=== PATIENT | male | born 1955 | race American Indian/Alaskan Native ===

== ENCOUNTER 2018-07-09 15:46 | Inpatient (IN) | payer MEDICARE ==
--- NOTE | 2018-07-09 16:38 | ED PDOC ---
Arrival/HPI - General Chief Complaint: Lower Extremity Problem/Injury Time Seen by Provider: 07/09/18 15:50 Historian: Patient, Alf - History of Present Illness Narrative History of Present Illness (Text): 07/09/18 16:37 A 63 year old male, whose past medical history includes ESRD on dialysis, diabetes, hyperthyroidism, and left BKA, presents to the emergency department sent by [facility] for amputation of gangrene on the right third toe. Patient denies any fever, chills, shortness of breath, chest pain, diarrhea, nausea, vomiting, urinary symptoms, back pain, neck pain, headache, dizziness, or any other complaints. PMD: Dr. Crystal Time/Duration: Other (earlier today) Symptom Onset: Gradual Activities at Onset: Light Context: Other ([facility]) Past Medical History - Provider Review Nursing Documentation Reviewed: Yes - Infectious Disease Hx of Infectious Diseases: None - Cardiac Hx Cardiac Disorders: Yes Hx Hypertension: Yes - Pulmonary Hx Respiratory Disorders: No - Neurological Hx Neurological Disorder: Yes Hx Seizures: Yes - HEENT Hx HEENT Disorder: Yes Other/Comment: DYSPHAGIA - Renal Hx Renal Disorder: Yes - Endocrine/Metabolic Hx Endocrine Disorders: Yes Hx Diabetes Mellitus Type 1: Yes - Integumentary Hx Dermatological Disorder: Yes Other/Comment: GANGRENE - Musculoskeletal/Rheumatological Hx Musculoskeletal Disorders: Yes Other/Comment: PVD - Psychiatric Hx Substance Use: No - Surgical History Other/Comment: right big toe amputee,left 2nd and 3rd partial amputee - Anesthesia Hx Anesthesia: Yes Hx Anesthesia Reactions: No Family/Social History - Physician Review Nursing Documentation Reviewed: Yes Family/Social History: Unknown Family HX Smoking Status: Never Smoked Hx Alcohol Use: No Hx Substance Use: No Allergies/Home Meds Allergies/Adverse Reactions: Allergies No Known Allergies Allergy (Verified 07/09/18 15:52) Home Medications: Home Meds Medication Instructions Recorded Confirmed Acetaminophen [Tylenol] 650 mg PO Q4 PRN 07/09/18 07/09/18 Aspirin [Aspirin Chewable] 81 mg PO DAILY 07/09/18 07/09/18 Atorvastatin [Lipitor] 80 mg PO DAILY 07/09/18 07/09/18 B Complex W-C No.20/Folic Acid 1 cap PO DAILY 07/09/18 07/09/18 [Nephrocaps Softgel] Clopidogrel [Plavix] 75 mg PO DAILY 07/09/18 07/09/18 Ergocalciferol [Drisdol 50,000 1 cap PO FRI 07/09/18 07/09/18 Intl Units Cap] Famotidine [Pepcid] 20 mg PO DAILY 07/09/18 07/09/18 Insulin Aspart, Recombinant See Protocol 07/09/18 [Novolog] Losartan [Cozaar] 100 mg PO DAILY 07/09/18 07/09/18 Metoprolol Tartrate 25 mg PO DAILY 07/09/18 07/09/18 Ondansetron HCl [Zofran] 4 mg PO Q8 PRN 07/09/18 07/09/18 Sevelamer Carbonate [Renvela] 800 mg PO DAILY 07/09/18 07/09/18 amLODIPine [Norvasc] 10 mg PO DAILY 07/09/18 07/09/18 levETIRAcetam [Keppra] 1,000 mg PO BID 07/09/18 07/09/18 Review of Systems - Physician Review All systems were reviewed & negative as marked: Yes - Review of Systems Constitutional: absent: Fevers, Night Sweats Respiratory: absent: SOB Cardiovascular: absent: Chest Pain Gastrointestinal: absent: Diarrhea, Nausea, Vomiting Genitourinary Male: absent: Urinary Output Changes Musculoskeletal: absent: Back Pain, Neck Pain Skin: Other (+gangrene on right third toe) Neurological: absent: Headache, Dizziness Physical Exam Vital Signs Reviewed: Yes Vital Signs Temp Pulse Resp BP Pulse Ox 07/09/18 16:05 98.1 F 70 18 126/65 100 Temperature: Afebrile Blood Pressure: Normal Pulse: Regular Respiratory Rate: Normal Appearance: Positive for: Well-Appearing, Non-Toxic, Comfortable Pain Distress: None Mental Status: No: Alert and Oriented X 3 (Alert and Oriented x2 - Person and Place) - Systems Exam Head: Present: Atraumatic, Normocephalic Pupils: Present: PERRL Extroacular Muscles: Present: Other (+legally blind) Conjunctiva: Present: Normal Mouth: Present: Moist Mucous Membranes Neck: Present: Normal Range of Motion Respiratory/Chest: Present: Clear to Auscultation, Good Air Exchange. No: Respiratory Distress, Accessory Muscle Use Cardiovascular: Present: Regular Rate and Rhythm, Normal S1, S2. No: Murmurs Abdomen: No: Tenderness, Distention, Peritoneal Signs Back: Present: Normal Inspection Upper Extremity: Present: Other (+bilateral upper and lower contractions, +left av fistula with palpable thrill) Lower Extremity: Present: Other (+left BKA, +right heel ulcer, +gangrene on 2nd and 3rd toe of right foot, +1st and 4th toe amputated on right foot). No: Edema, CALF TENDERNESS, Cyanosis, Normal ROM, Tab's Sign, Tenderness, Swelling, Erythema, Deformity, Temperature Abnormalties, Neurovascularly Intact, Capillary Refill < 2 s Neurological: Present: GCS=15, CN II-XII Intact, Speech Normal Skin: Present: Warm, Dry, Normal Color. No: Rashes Psychiatric: Present: Alert, Oriented x 3, Normal Insight, Normal Concentration Medical Decision Making ED Course and Treatment: 07/09/18 16:45 Impression: A 63 year old male presenting to the emergency department for amputation of gangrene right third toe. Plan: --Type and screen -- VBG -- EKG -- Labs -- CBC -- COAGs -- Chest X-ray -- Blood culture -- Urine Culture -- Xray of right foot -- Urinalysis -- Reassess and disposition Prior Visits: Notes and results from previous visits were reviewed. Progress Notes: 07/09/18 16:37 EKG: Ordered, reviewed, and independently interpreted the EKG. Rate : 68 BPM Rhythm : NSR Interpretation : No ST-segment elevations or depressions, post LVH 07/09/18 17:[address] Crystal, podiatry attending, who advised to give patient tazocin, arterial doplar, and consult Dr. Jacobs, vascular. Patient will be admitted to Dr. Hernández. 07/09/18 17:05 Case also discussed with podiatry resident, January. 07/09/18 17:35 Procedure: Chest X-ray Impression: No active disease. Dictator: Antonio Corado Procedure: Right Foot Xray Impression: Postoperative changes. No objective radiographic evidence of acute osteomyelitis. Dictator: Antonio Corado MD 07/09/18 17:[address] Wolfe who is covering for Dr. Hernández and will admit patient to his care. - Scribe Statement The provider has reviewed the documentation as recorded by the Lexy Fabian All medical record entries made by the Lexy were at my direction and personally dictated by me. I have reviewed the chart and agree that the record accurately reflects my personal performance of the history, physical exam, medical decision making, and the department course for this patient. I have also personally directed, reviewed, and agree with the discharge instructions and disposition. Disposition/Present on Arrival - Present on Arrival Any Indicators Present on Arrival: Yes History of DVT/PE: No History of Uncontrolled Diabetes: Yes Urinary Catheter: No History of Decub. Ulcer: No History Surgical Site Infection Following: None - Disposition Have Diagnosis and Disposition been Completed?: Yes Diagnosis: Toe gangrene Disposition: HOME/ ROUTINE Disposition Time: 18:11 Patient Plan: Admission Condition: GUARDED Forms: [email or web address] (Maltese)
[2018-07-09 17:01] LABS: VENOUS BLOOD GAS PO2 48 mm/Hg (30-55); VENOUS BLOOD PH 7.34 (7.32-7.43)
[2018-07-09] MEDS ORDERED: Vancomycin 1gm in NS 250ml 1 GM/250 ML BAG IVPB STA (17:05)
[2018-07-09] MEDS ORDERED: Piperacill/Tazo 4.5gm in NS 4.5 GM/100 ML BAG IVPB STA (17:07)
[2018-07-09 17:16] LABS: BASO # 0.06 K/mm3 (0.0-2.0); BASO % 0.7 % (0.0-3.0); EOS # 0.3 (0.0-0.7); EOS % 3.7 % (1.5-5.0); GRAN # 5.96 (1.4-6.5); GRAN % 65.5 % (50.0-68.0); HEMOGLOBIN 11.4 g/dL (14.0-18.0); LYMPH # 1.8 (1.2-3.4); LYMPH % 19.4 % (22.0-35.0); MEAN CELL VOLUME 96.6 fl (80.0-105.0); MEAN CORPUSCULAR HGB CONC 31.1 g/dl (31.0-37.0); MONO % 10.7 % (1.0-6.0); RBC 3.8 10^6/uL (3.5-6.1); RED CELL DISTRIBUTION WIDTH 14.8 % (11.5-14.5); WHITE BLOOD COUNT 9.1 10^3/ul (4.5-11.0)
[2018-07-09 17:17] LABS: PROTHROMBIN TIME 11.4 SECONDS (9.4-12.5)
[2018-07-09 17:20] LABS: ALB/GLOB RATIO 0.8 (1.1-1.8); ALBUMIN 3.6 g/dL (3.0-4.8); CALCIUM 8.8 mg/dL (8.4-10.5)
--- NOTE | 2018-07-09 17:25 | RAD ---
Date of service: 07/09/2018 HISTORY: Sepsis Patient COMPARISON: No prior. FINDINGS: LUNGS: No active pulmonary disease. PLEURA: No significant pleural effusion identified, no pneumothorax apparent. CARDIOVASCULAR: No radiographic findings to suggest acute or significant cardiovascular disease. Incidental finding(s): Incompletely visualized left upper extremity vascular stent. OSSEOUS STRUCTURES: No significant abnormalities. VISUALIZED UPPER ABDOMEN: Normal. OTHER FINDINGS: None. IMPRESSION: No active disease.
--- NOTE | 2018-07-09 17:26 | RAD ---
Date of service: 07/09/2018 PROCEDURE: Right Foot Radiographs. HISTORY: foot toe gangreen COMPARISON: None. FINDINGS: BONES: Surgical resection of 1st digit and distal 1st metatarsal. Resection of 4th digit. JOINTS: Normal. SOFT TISSUES: Normal. OTHER FINDINGS: None. IMPRESSION: Postoperative changes. No objective radiographic evidence of acute osteomyelitis.
--- NOTE | 2018-07-09 23:30 | CARD ---
APPROVED REPORT Date of service: 07/09/2018 EKG Measurement Heart [id number] <Conclusion> Normal sinus rhythm Moderate voltage criteria for LVH, may be normal variant Borderline ECG
--- NOTE | 2018-07-10 14:26 | CP.PCM.CON ---
History of Present Illness - History of Present Illness History of Present Illness: Consult for Nephrology HPI: 63 yo M w/ pmh of ESRD, HTN, dm, blind that presented for gangrene of L foot. He is unable to give much history - he is fatigued. He has been following w/ podiatry in [place] who thinks he needs amputation. He denies fever/chills/n/v. He endorses reduced po intake. ros: a full detailed ros is negative except as in my hpi pmh: ESRD TTS,HTN,DM, Anemia, Secondary hyperpara, PAD and as below surg hx: includes R BKA famhx: no esrd in family sochx: [place] no active smoke etoh or ivdu all: nkda meds: as below pe: vs as below seen on HD gen : nad sclera: anicteric op: poor dentition neck: supple cv: +s1+s2 no rub lungs cta abd: soft nt/nd / no organomegaly ext: dressing on L foot r bka neuro: follows commands no asterixis psych: flat skin dressing on foot ulceration labs and imaging rviewd imp: ESRD/HTN/Diabetic kidney/Diabetic foot ulcer/ Anemia of renal disease/ Secondary hyperpara/ plan: hd today, tts dm per primary resume home bp meds foot ulcer per primary team dose abx for esrd hold phos binders for now no need for HILTON currently Past Patient History - Infectious Disease Hx of Infectious Diseases: None - Past Social History Smoking Status: Former Smoker - CARDIAC Hx Cardiac Disorders: Yes (CAD) Hx Hypertension: Yes Hx Peripheral Vascular Disease: Yes (s/p angioplasty of right leg 07/2017) Other/Comment: hyperlipidemia; peripheral neuropathy - PULMONARY Hx Respiratory Disorders: No - NEUROLOGICAL Hx Dementia: Yes Hx Seizures: Yes Other/Comment: Toxic metabolic encephalopathy - HEENT Hx HEENT Problems: Yes Other/Comment: DYSPHAGIA - RENAL Hx Chronic Kidney Disease: Yes Hx Dialysis: Yes ([facility]ThS at [facility]) Date of Last Dialysis Treatment: 07/08/18 Hx Renal Failure: Yes - ENDOCRINE/METABOLIC Hx Diabetes Mellitus Type 2: Yes Hx Hyperthyroidism: Yes - INTEGUMENTARY Hx Dermatological Problems: Yes Other/Comment: GANGRENE - MUSCULOSKELETAL/RHEUMATOLOGICAL Hx Falls: Yes - GASTROINTESTINAL Hx Gastrointestinal Disorders: Yes Other/Comment: Gastritis, GI bleeding 2/2; Esophagitis; Roxana Amaya tear; - GENITOURINARY/GYNECOLOGICAL Hx Incontinence: Yes - PSYCHIATRIC Hx Substance Use: No - SURGICAL HISTORY Hx Surgeries: Yes Hx Amputation: Yes (left BKA 03/2017; mulitple b/l toes) Other/Comment: AVG thrombectomy with placement of AV fistula; right remoral antiopathy - ANESTHESIA Hx Anesthesia: Yes Hx Anesthesia Reactions: No Meds Allergies/Adverse Reactions: Allergies Allergy/AdvReac Type Severity Reaction Status Date / Time No Known Allergies Allergy Verified 07/09/18 15:52 - Medications Medications: Current Medications Amlodipine Besylate (Norvasc) 10 mg PO DAILY [facility] Atorvastatin Calcium (Lipitor) 80 mg PO DIN [facility] Insulin Human Regular (Humulin R Low) 0 units SC ACHS [facility]; Protocol Levetiracetam (Keppra) 1,000 mg PO BID [facility] Metoprolol Succinate (Toprol Xl) 25 mg PO BRK [facility] Results - Vital Signs Recent Vital Signs: Last Vital Signs Temp 98.6 F 07/10/18 08:19 Pulse 68 07/10/18 08:19 Resp 18 07/10/18 08:19 BP 143/82 07/10/18 08:19 Pulse Ox 100 07/10/18 08:19 - Labs Result Diagrams: 07/09/18 16:40 07/09/18 16:40 Labs: Laboratory Results - last 24 hr 07/09/18 07/09/18 07/09/18 16:40 16:40 16:40 WBC 9.1 RBC 3.80 Hgb 11.4 L Hct 36.7 L MCV 96.6 MCH 30.0 MCHC 31.1 RDW 14.8 H Plt Count 337 MPV 10.0 Gran % 65.5 Lymph % (Auto) 19.4 L [place] % (Auto) 10.7 H Eos % (Auto) 3.7 Baso % (Auto) 0.7 Gran # 5.96 Lymph # (Auto) 1.8 [place] # (Auto) 1.0 H Eos # (Auto) 0.3 Baso # (Auto) 0.06 PT 11.4 INR 1.00 APTT 28.0 pO2 VBG pH VBG pCO2 VBG HCO3 VBG Total CO2 VBG O2 Sat (Calc) VBG Base Excess VBG Potassium Glucose Lactate FiO2 Sodium 138 Potassium 4.8 Chloride 98 Carbon Dioxide 32 Anion Gap 13 BUN 31 H Creatinine 5.7 H Est GFR ( Amer) 12 Est GFR (Non-Af Amer) 10 POC Glucose (mg/dL) Random Glucose 161 H Calcium 8.8 Phosphorus 2.6 Magnesium 2.4 H Total Bilirubin 0.5 AST 28 ALT 19 Alkaline Phosphatase 100 Total Protein 7.9 Albumin 3.6 Globulin 4.3 Albumin/Globulin Ratio 0.8 L Venous Blood Potassium Blood Type Blood Type Confirm Antibody Screen BBK History Checked 07/09/18 07/09/18 07/09/18 16:57 17:15 18:00 WBC RBC Hgb Hct MCV MCH MCHC RDW Plt Count MPV Gran % Lymph % (Auto) [place] % (Auto) Eos % (Auto) Baso % (Auto) Gran # Lymph # (Auto) [place] # (Auto) Eos # (Auto) Baso # (Auto) PT INR APTT pO2 48 VBG pH 7.34 VBG pCO2 65.0 H VBG HCO3 35.1 H VBG Total CO2 37.1 H VBG O2 Sat (Calc) 84.4 H VBG Base Excess 7.0 H VBG Potassium 4.6 Glucose 159 H Lactate 1.6 FiO2 21.0 Sodium 136.0 Potassium Chloride 102.0 Carbon Dioxide Anion Gap BUN Creatinine Est GFR ( Amer) Est GFR (Non-Af Amer) POC Glucose (mg/dL) Random Glucose Calcium Phosphorus Magnesium Total Bilirubin AST ALT Alkaline Phosphatase Total Protein Albumin Globulin Albumin/Globulin Ratio Venous Blood Potassium 4.6 Blood Type B POSITIVE Blood Type Confirm B POSITIVE Antibody Screen Negative BBK History Checked No verified bt 07/10/18 07/10/18 00:20 06:31 WBC RBC Hgb Hct MCV MCH MCHC RDW Plt Count MPV Gran % Lymph % (Auto) [place] % (Auto) Eos % (Auto) Baso % (Auto) Gran # Lymph # (Auto) [place] # (Auto) Eos # (Auto) Baso # (Auto) PT INR APTT pO2 VBG pH VBG pCO2 VBG HCO3 VBG Total CO2 VBG O2 Sat (Calc) VBG Base Excess VBG Potassium Glucose Lactate FiO2 Sodium Potassium Chloride Carbon Dioxide Anion Gap BUN Creatinine Est GFR ( Amer) Est GFR (Non-Af Amer) POC Glucose (mg/dL) 122 H 100 Random Glucose Calcium Phosphorus Magnesium Total Bilirubin AST ALT Alkaline Phosphatase Total Protein Albumin Globulin Albumin/Globulin Ratio Venous Blood Potassium Blood Type Blood Type Confirm Antibody Screen BBK History Checked
--- NOTE | 2018-07-10 14:26 | CP.PCM.PN ---
Subjective - Date & Time of Evaluation Date of Evaluation: 07/10/18 Time of Evaluation: 14:26 - Subjective Subjective: DIALYSIS NOTE seen on HD uf goal initially 2 reduced to 1.2 due to hypotension 2k bath Objective - Vital Signs/Intake and Output Vital Signs (last 24 hours): Temp Pulse Resp BP Pulse Ox 98.6 F 68 18 143/82 100 07/10/18 08:19 07/10/18 08:19 07/10/18 08:19 07/10/18 08:19 07/10/18 08:19 - Medications Medications: Current Medications Amlodipine Besylate (Norvasc) 10 mg PO DAILY [facility] Atorvastatin Calcium (Lipitor) 80 mg PO DIN [facility] Insulin Human Regular (Humulin R Low) 0 units SC ACHS [facility]; Protocol Levetiracetam (Keppra) 1,000 mg PO BID [facility] Metoprolol Succinate (Toprol Xl) 25 mg PO BRK [facility] - Labs Labs: 07/09/18 16:40 07/09/18 16:40 PT 11.4 SECONDS (9.4-12.5) 07/09/18 16:40 INR 1.00 07/09/18 16:40 APTT 28.0 Seconds (25.1-36.5) 07/09/18 16:40
[2018-07-10] MEDS: Metoprolol Succinate 25 mg XL Tab PO SCH (15:54)
--- NOTE | 2018-07-10 16:52 | CP.PCM.CON ---
History of Present Illness - History of Present Illness History of Present Illness: Infectious Disease Consultation: July 10, 2018 63 yo AA male with PMHx of ESRD on HD, HTN, DM, CAD, dyslipidemia, anemia, hypothyroidism, seizure history, and blindness presenting with gangrene of the Left foot. Seen by Podiatry in [facility] who felt amputation was needed (I believe Dr. Blakely was the employee relations consultant following). Dr. Gan for renal and Dr. Holm for neurology. The patient himself gives very little information and often appears distant. I have seen the patient in [facility] in the past. I do know that the patient was being transitioned to long term care pharmacist care at [facility]. PMHx: ESRD on HD, HTN, DM, CAD, dyslipidemia, anemia, hypothyroidism, seizure history, secondary hyperparathyroidism, and blindness PSHx: Right BKA Dialysis access. Allergies: NKDA Social Hx: No current tobacco, EtOH, or illicit drug use. Currently in [facility] at [facility] being transitioned to [facility] Active Medications Amlodipine Besylate (Norvasc) 10 mg PO DAILY [facility] Last Admin: 07/10/18 15:53 Dose: 10 mg Atorvastatin Calcium (Lipitor) 80 mg PO DIN [facility] Last Admin: 07/10/18 16:28 Dose: 80 mg Insulin Human Regular (Humulin R Low) 0 units SC [facility]; Protocol Levetiracetam (Keppra) 1,000 mg PO BID [facility] Metoprolol Succinate (Toprol Xl) 25 mg PO BRK [facility] Last Admin: 07/10/18 15:54 Dose: 25 mg Family Hx: Unable to obtain from the patient ROS: Unable to obtain from the patient Past Patient History - Infectious Disease Hx of Infectious Diseases: None - Past Social History Smoking Status: Former Smoker - CARDIAC Hx Cardiac Disorders: Yes (CAD) Hx Hypertension: Yes Hx Peripheral Vascular Disease: Yes (s/p angioplasty of right leg 07/2017) Other/Comment: hyperlipidemia; peripheral neuropathy - PULMONARY Hx Respiratory Disorders: No - NEUROLOGICAL Hx Dementia: Yes Hx Seizures: Yes Other/Comment: Toxic metabolic encephalopathy - HEENT Hx HEENT Problems: Yes Other/Comment: DYSPHAGIA - RENAL Hx Chronic Kidney Disease: Yes Hx Dialysis: Yes (TThS at [facility]) Date of Last Dialysis Treatment: 07/08/18 Hx Renal Failure: Yes - ENDOCRINE/METABOLIC Hx Diabetes Mellitus Type 2: Yes Hx Hyperthyroidism: Yes - INTEGUMENTARY Hx Dermatological Problems: Yes Other/Comment: GANGRENE - MUSCULOSKELETAL/RHEUMATOLOGICAL Hx Falls: Yes - GASTROINTESTINAL Hx Gastrointestinal Disorders: Yes Other/Comment: Gastritis, GI bleeding 2/2; Esophagitis; Roxana Amaya tear; - GENITOURINARY/GYNECOLOGICAL Hx Incontinence: Yes - PSYCHIATRIC Hx Substance Use: No - SURGICAL HISTORY Hx Surgeries: Yes Hx Amputation: Yes (left BKA 03/2017; mulitple b/l toes) Other/Comment: AVG thrombectomy with placement of AV fistula; right remoral antiopathy - ANESTHESIA Hx Anesthesia: Yes Hx Anesthesia Reactions: No Meds Allergies/Adverse Reactions: Allergies Allergy/AdvReac Type Severity Reaction Status Date / Time No Known Allergies Allergy Verified 07/09/18 15:52 - Medications Medications: Current Medications Amlodipine Besylate (Norvasc) 10 mg PO DAILY [facility] Last Admin: 07/10/18 15:53 Dose: 10 mg Atorvastatin Calcium (Lipitor) 80 mg PO DIN [facility] Last Admin: 07/10/18 16:28 Dose: 80 mg Insulin Human Regular (Humulin R Low) 0 units SC [facility]; Protocol Levetiracetam (Keppra) 1,000 mg PO BID [facility] Metoprolol Succinate (Toprol Xl) 25 mg PO BRK [facility] Last Admin: 07/10/18 15:54 Dose: 25 mg Physical Exam - Constitutional Appears: Non-toxic, No Acute Distress, Chronically Ill - Head Exam Head Exam: ATRAUMATIC, NORMOCEPHALIC Additional comments: poor dentition - Eye Exam Eye Exam: absent: Scleral icterus Additional comments: legally blind - ENT Exam ENT Exam: Mucous Membranes Moist, Normal External Ear Exam, TM's Normal Bilaterally - Neck Exam Neck exam: Positive for: Full Rom, Normal Inspection - Respiratory Exam Respiratory Exam: Clear to Auscultation Bilateral, NORMAL BREATHING PATTERN. absent: Rales, Rhonchi, Wheezes - Cardiovascular Exam Cardiovascular Exam: REGULAR RHYTHM, RRR, +S1, +S2 - GI/Abdominal Exam GI & Abdominal Exam: Normal Bowel Sounds, Soft. absent: Distended, Tenderness - Extremities Exam Additional comments: Right BKA. Left foot with gangrene... wrapped now - Neurological Exam Neurological exam: Alert Additional comments: follows commands, generally week. - Psychiatric Exam Psychiatric exam: Flat Affect Additional comments: distant - Skin Additional comments: gangrene left foot. Results - Vital Signs Recent Vital Signs: Last Vital Signs Temp 98.6 F 07/10/18 08:19 Pulse 86 07/10/18 15:54 Resp 18 07/10/18 08:19 BP 136/85 07/10/18 15:54 Pulse Ox 100 07/10/18 08:19 - Labs Result Diagrams: 07/09/18 16:40 07/09/18 16:40 Labs: Laboratory Results - last 24 hr 07/09/18 07/09/18 07/09/18 16:40 16:40 16:40 WBC 9.1 RBC 3.80 Hgb 11.4 L Hct 36.7 L MCV 96.6 MCH 30.0 MCHC 31.1 RDW 14.8 H Plt Count 337 MPV 10.0 Gran % 65.5 Lymph % (Auto) 19.4 L [place] % (Auto) 10.7 H Eos % (Auto) 3.7 Baso % (Auto) 0.7 Gran # 5.96 Lymph # (Auto) 1.8 [place] # (Auto) 1.0 H Eos # (Auto) 0.3 Baso # (Auto) 0.06 PT 11.4 INR 1.00 APTT 28.0 pO2 VBG pH VBG pCO2 VBG HCO3 VBG Total CO2 VBG O2 Sat (Calc) VBG Base Excess VBG Potassium Glucose Lactate FiO2 Sodium 138 Potassium 4.8 Chloride 98 Carbon Dioxide 32 Anion Gap 13 BUN 31 H Creatinine 5.7 H Est GFR ( Amer) 12 Est GFR (Non-Af Amer) 10 POC Glucose (mg/dL) Random Glucose 161 H Calcium 8.8 Phosphorus 2.6 Magnesium 2.4 H Total Bilirubin 0.5 AST 28 ALT 19 Alkaline Phosphatase 100 Total Protein 7.9 Albumin 3.6 Globulin 4.3 Albumin/Globulin Ratio 0.8 L Venous Blood Potassium Blood Type Blood Type Confirm Antibody Screen BBK History Checked 07/09/18 07/09/18 07/09/18 16:57 17:15 18:00 WBC RBC Hgb Hct MCV MCH MCHC RDW Plt Count MPV Gran % Lymph % (Auto) [place] % (Auto) Eos % (Auto) Baso % (Auto) Gran # Lymph # (Auto) [place] # (Auto) Eos # (Auto) Baso # (Auto) PT INR APTT pO2 48 VBG pH 7.34 VBG pCO2 65.0 H VBG HCO3 35.1 H VBG Total CO2 37.1 H VBG O2 Sat (Calc) 84.4 H VBG Base Excess 7.0 H VBG Potassium 4.6 Glucose 159 H Lactate 1.6 FiO2 21.0 Sodium 136.0 Potassium Chloride 102.0 Carbon Dioxide Anion Gap BUN Creatinine Est GFR ( Amer) Est GFR (Non-Af Amer) POC Glucose (mg/dL) Random Glucose Calcium Phosphorus Magnesium Total Bilirubin AST ALT Alkaline Phosphatase Total Protein Albumin Globulin Albumin/Globulin Ratio Venous Blood Potassium 4.6 Blood Type B POSITIVE Blood Type Confirm B POSITIVE Antibody Screen Negative BBK History Checked No verified bt 07/10/18 07/10/18 00:20 06:31 WBC RBC Hgb Hct MCV MCH MCHC RDW Plt Count MPV Gran % Lymph % (Auto) [place] % (Auto) Eos % (Auto) Baso % (Auto) Gran # Lymph # (Auto) [place] # (Auto) Eos # (Auto) Baso # (Auto) PT INR APTT pO2 VBG pH VBG pCO2 VBG HCO3 VBG Total CO2 VBG O2 Sat (Calc) VBG Base Excess VBG Potassium Glucose Lactate FiO2 Sodium Potassium Chloride Carbon Dioxide Anion Gap BUN Creatinine Est GFR ( Amer) Est GFR (Non-Af Amer) POC Glucose (mg/dL) 122 H 100 Random Glucose Calcium Phosphorus Magnesium Total Bilirubin AST ALT Alkaline Phosphatase Total Protein Albumin Globulin Albumin/Globulin Ratio Venous Blood Potassium Blood Type Blood Type Confirm Antibody Screen BBK History Checked Assessment & Plan - Assessment and Plan (Free Text) Assessment: 63 yo AA male with multiple medical issues presenting with gangrene of the left foot. I believe that is why he was sent to [facility]. No notes at this time at [facility] on why the patient was transferred. Patient is a very poor historian. Start patient on Cefepime and Vancomycin renally dosed for now. Arrington cultures. Await surgical plan by podiatry. WBC on 06/26/2018 was 10.2. Supportive care. PMHx includes but not limited to ESRD on HD, HTN, DM, CAD, dyslipidemia, anemia, hypothyroidism, seizure history, PVD, hypothyroidism, secondary hyperparathyroidism, seizure history, and blindness Thank you for allowing me to participate in the care of the patient, we will follow with you.
--- NOTE | 2018-07-10 18:07 | CON ---
DATE: 07/10/2018 HISTORY OF PRESENT ILLNESS: A 63-year-old diabetic male seen at bedside for consultation, evaluation, and management of a gangrenous right third digit. The patient was seen by myself at [facility] yesterday and he was being treated for a right third toe ulceration which has now become gangrenous. There was noted to be some purulence emanating from the wound and he was sent for admission to avoid sepsis. PAST MEDICAL HISTORY: The patient's medical history is significant for longstanding insulin-dependent diabetes with peripheral neuropathy and peripheral arterial disease; end-stage renal disease, on hemodialysis 3 days a week; hyperthyroidism; left below-knee amputation; CAD; essential hypertension; dysphasia; seizure disorder. ALLERGIES: THE PATIENT HAS NO KNOWN DRUG ALLERGIES. MEDICATIONS: Include Keppra, Norvasc, Renvela, Zofran, metoprolol, Cozaar, NovoLog, Pepcid, Drisdol, Plavix, Lipitor, aspirin, and Tylenol. SOCIAL HISTORY: The patient is very poor historian, but states that he never smoked, never drank alcohol, never used illicit drugs. FAMILY HISTORY: Unknown. LABORATORY FINDINGS: Reveal white count of 9.1, hemoglobin of 11.4, hematocrit of 36.7, and platelet count of 337. No microbiology report noted. X-rays taken of the right foot revealed no radiographic evidence of cortical destruction to suggest acute osteomyelitis at the gangrenous ulceration. We are awaiting arterial Doppler results to determine lower extremity perfusion. OBJECTIVE: There is noted to be a below-knee amputation on the left side. Right lower extremity presents with nonpalpable pedal pulses 3.40 right lower extremity presents with thin, shiny discolored skin secondary to longstanding diabetes with peripheral arterial disease. There is noted to be an amputation of the right hallux as well as the partial amputation of the right fourth digit. The patient is unable to detect 5.07 g monofilament wire testing bilaterally. There are no pedal pulses palpable and there is no palpable popliteal pulse noted as well. Right third digit presents with a gangrenous ulceration at the distal half of the digit. There is exposed head of the proximal phalangeal bone. There is noted to be a small amount of purulence emanating from the wound. The area is void of any cellulitic activity and there appears to be no signs of ascending cellulitis. However, underlying abscess formation cannot be ruled out. ASSESSMENT: Gangrenous right third digit secondary to longstanding insulin-dependent diabetes with severe peripheral arterial disease. PLAN: The patient was seen and examined. Wound was cleansed and culture was taken and submitted for sensitivities. The application of Betadine solution and a dry sterile dressing was applied. Recommend Infectious Disease consult with Dr. Valdez Schofield to evaluate culture and sensitivity results and prescribe accordingly. Recommend immediate Vascular consultation with Dr. Sergey Jacobs to evaluate arterial Doppler's and ascertain lower extremity perfusion. We will await Vascular input before any surgical intervention is attempted. Must be determined if the patient's amputation site will heal with surgery as opposed to allowing amputation to occur. We will continue with IV antibiotics empirically and await Infectious Disease input. Loco Blakely DPM
[2018-07-10] MEDS: Insulin Reg-LOW-Coverage SC SCH ×2 (18:13→22:36)
[2018-07-10] MEDS: Cefepime 1gm in NS 100ml 1 GM/100 ML BAG IVPB SCH (19:05)
--- NOTE | 2018-07-10 19:26 | HP ---
This is Dr. Wolfe covering for Dr. Fatmata Wilkins. HISTORY OF PRESENT ILLNESS: The patient is a 63-year-old male transferred from [facility] at [facility], referred by game master, Dr. Blakely for gangrene of the right third toe. PAST MEDICAL HISTORY: Includes end-stage renal disease, on dialysis; type 2 diabetes mellitus; hyperthyroidism; peripheral vascular disease. The patient also has a history of hypertension. PAST SURGICAL HISTORY: Includes status post left below-knee amputation and amputation of the right first toe. ALLERGIES: THE PATIENT HAS NO KNOWN ALLERGIES. CURRENT MEDICATIONS: Include Renvela 800 mg daily, Plavix 75 mg daily, Pepcid 20 mg daily, metoprolol 25 mg daily, Keppra 1000 mg twice daily, Cozaar 100 mg daily, Lipitor 80 mg daily, vitamin D, Drisdol 50,000 units weekly, ASA 81 mg daily, and Norvasc 10 mg daily. SOCIAL HISTORY: The patient denies any history of tobacco or alcohol use. He is currently a resident at [facility]. He is dependent with ADLs and IADLs. REVIEW OF SYSTEMS: The patient denies any chest pain or shortness of breath. No nausea, no vomiting, no diarrhea. No complaints of pain in the lower extremities. No jaundice. PHYSICAL EXAMINATION: GENERAL: The patient is a well-developed, cachectic male, in no acute distress. VITAL SIGNS: Blood pressure 143/82, pulse 102, temperature 98.6, respiratory rate 18. HEENT: Head is normocephalic, atraumatic. Pupils are equal, round, and reactive to light. Extraocular movements intact. NECK: Supple. No thyromegaly. No carotid bruit. LUNGS: Show few scattered crepitations bilaterally. HEART: Regular rate and rhythm. Grade 2/6 systolic murmur. ABDOMEN: Soft. EXTREMITIES: The left arm AV fistula is present with good bruit. The patient is status post left bilateral above-knee amputation. The right third toe is slightly cyanotic with abrasion of the dorsal surface. The patient is status post amputation of the right first toe. NEUROLOGIC: The patient is awake and oriented without focal sensory or motor deficits. SKIN: Warm and dry. LABORATORY DATA: WBC is 9.1, hemoglobin 11.4, and hematocrit 36.7. Sodium 138, potassium 4.8, chloride 98, CO2 of 32. BUN 31, creatinine 5.7. Glucose 161. Chest x-ray shows no active disease. X-ray of the right foot shows no evidence of osteomyelitis. IMPRESSION: 1. Peripheral vascular disease, dry gangrene of the right third toe, status post left below-knee amputation and amputation of right first toe. 2. End-stage renal disease, on hemodialysis. 3. Type 2 diabetes mellitus. PLAN: The patient will be seen in consultation by Dr. Reddy sánchez amputation. The patient will continue hemodialysis. The patient has received dosage of Zosyn and vancomycin in the emergency department. Dr. Wiklins will continue care of the patient in the a.m. MADISON Martin MD
[2018-07-10] MEDS: Ciprofloxacin 0.3% OPTH SOLN OU SCH (22:37)
[2018-07-11] MEDS: Insulin Reg-LOW-Coverage SC SCH ×4 (08:30→22:27)
[2018-07-11] MEDS: Metoprolol Succinate 25 mg XL Tab PO SCH (09:00)
[2018-07-11] MEDS: Ciprofloxacin 0.3% OPTH SOLN OU SCH ×3 (11:00→17:57)
--- NOTE | 2018-07-11 12:45 | CP.PCM.PN ---
Subjective - Date & Time of Evaluation Date of Evaluation: 07/11/18 Time of Evaluation: 12:40 - Subjective Subjective: Podiatry - Drs. Frost/Reddy 63M PMHx ESRD on HD, HTN, DM, CAD, dyslipidemia, anemia, hypothyroidism, seizure history, PVD, hypothyroidism, secondary hyperparathyroidism, seizure history, and blindness seen and evaluated at bedside concerning right 3rd digit gangrene. Patient asleep on rounds, flat affect, able to answer yes/no to questions. No acute events overnight per nursing. Patient denies any pain to right foot. Dressing to right foot clean/dry/intact. Denies n/v/f/d/c/sob/nunes/cp. Objective - Vital Signs/Intake and Output Vital Signs (last 24 hours): Temp Pulse Resp BP Pulse Ox 98.3 F 71 18 153/92 H 99 07/11/18 08:39 07/11/18 09:00 07/11/18 08:39 07/11/18 09:40 07/11/18 08:39 - Medications Medications: Current Medications Amlodipine Besylate (Norvasc) 10 mg PO DAILY [facility] Last Admin: 07/11/18 09:40 Dose: 10 mg Atorvastatin Calcium (Lipitor) 80 mg PO DIN [facility] Last Admin: 07/10/18 16:28 Dose: 80 mg Ciprofloxacin (Ciloxan 0.3% [facility] Soln) 1 drop OU TID [facility] Last Admin: 07/10/18 22:37 Dose: 1 drop Cefepime HCl (Maxipime 1gm) 1 gm in 100 mls @ 100 mls/hr IVPB Q24H [facility]; Protoc ol Last Admin: 07/10/18 19:05 Dose: 100 mls/hr Insulin Human Regular (Humulin R Low) 0 units SC ACHS [facility]; Protocol Last Admin: 07/11/18 08:30 Dose: Not Given Levetiracetam (Keppra) 1,000 mg PO BID [facility] Last Admin: 07/11/18 09:38 Dose: 1,000 mg Metoprolol Succinate (Toprol Xl) 25 mg PO BRK [facility] Last Admin: 07/11/18 09:00 Dose: 25 mg - Labs Labs: 07/09/18 16:40 07/09/18 16:40 PT 11.4 SECONDS (9.4-12.5) 07/09/18 16:40 INR 1.00 07/09/18 16:40 APTT 28.0 Seconds (25.1-36.5) 07/09/18 16:40 - Constitutional Appears: No Acute Distress - Extremities Exam Additional comments: LLE = BKA RLE focused physical exam: VASC: DP and PT pulses nonpalpable. Popliteal pulse nonpalpable. CFT delayed to digits. Temperature gradient cool to cool. Nonpitting edema noted to base of 3rd digit. NEURO: Protective sensation diminisehd. DERM: Thin, friable skin present. Dry gangrene noted to distal half of 3rd digit and full thickness ulceration around PIPJ with exposed head of proximal phalanx. 1cc of purulence able to be expressed from wound. ORTHO: Hallux and partial 4th digit amputations. - Psychiatric Exam Psychiatric exam: Flat Affect Assessment and Plan - Assessment and Plan (Free Text) Assessment: 63M with right 3rd digit gangrene 2/2 PVD Plan: Patient seen and evaluated Discussed with attending, Dr. Santosh GLORIA Right foot XR (07/09): Postoperative changes. No objective radiographic evidence of acute osteomyelitis RLE MRI (07/10): pending Right foot wound culture (07/10): pending ID recs appreciated - Cefepime and Vancomycin, renally dosed f/u Vascular consult Continue local wound care: betadine, DSD Podiatry will continue to follow
--- NOTE | 2018-07-11 13:51 | MRI ---
Date of service: 07/10/2018 PROCEDURE: MRI of the right foot without contrast HISTORY: right 3rd digit gangrene COMPARISON: Plain film dated 07/09/2018 TECHNIQUE: MRI of the right foot was performed in multiple planes using multiple pulse sequences. FINDINGS: There is bony destruction and marrow edema in the 3rd toe including the proximal middle and distal phalanges. Findings are consistent with osteomyelitis. This area was obscured on the previous plain film due to overlapping of the toes. There is no metatarsal edema. IMPRESSION: Bony destruction and marrow edema in the 3rd toe consistent with acute osteomyelitis
--- NOTE | 2018-07-11 17:14 | CP.PCM.PN ---
Subjective - Date & Time of Evaluation Date of Evaluation: 07/11/18 Time of Evaluation: 16:00 - Subjective Subjective: Infectious Disease Follow Up: July 11, 2018 63 yo AA male with PMHx of ESRD on HD, HTN, DM, CAD, dyslipidemia, anemia, hypothyroidism, seizure history, and blindness presenting with gangrene of the Left foot. Seen by Podiatry in [facility] who felt amputation was needed (I believe Dr. Blakely was the cargo and container inspector following). Dr. Gan for renal and Dr. Holm for neurology. The patient himself gives very little information and often appears distant. I have seen the patient in [facility] in the past. I do know that the patient was being transitioned to [facility] care at [facility]. Awaiting vascular evaluation and podiatry final recommendations regarding surgical options if any on the foot. MRI showing acute osteomyelitis of the 3rd toe of the left foot. Objective - Vital Signs/Intake and Output Vital Signs (last 24 hours): Temp Pulse Resp BP Pulse Ox 98.6 F 69 14 112/66 98 07/11/18 14:00 07/11/18 14:00 07/11/18 14:00 07/11/18 14:00 07/11/18 14:00 - Medications Medications: Current Medications Amlodipine Besylate (Norvasc) 10 mg PO DAILY [facility] Last Admin: 07/11/18 09:40 Dose: 10 mg Atorvastatin Calcium (Lipitor) 80 mg PO DIN [facility] Last Admin: 07/10/18 16:28 Dose: 80 mg Ciprofloxacin (Ciloxan 0.3% [facility] Soln) 1 drop OU TID [facility] Last Admin: 07/11/18 14:27 Dose: 1 drop Cefepime HCl (Maxipime 1gm) 1 gm in 100 mls @ 100 mls/hr IVPB Q24H [facility]; Protocol Last Admin: 07/10/18 19:05 Dose: 100 mls/hr Insulin Human Regular (Humulin R Low) 0 units SC ACHS [facility]; Protocol Last Admin: 07/11/18 12:30 Dose: Not Given Levetiracetam (Keppra) 1,000 mg PO BID [facility] Last Admin: 07/11/18 09:38 Dose: 1,000 mg Metoprolol Succinate (Toprol Xl) 25 mg PO BRK [facility] Last Admin: 07/11/18 09:00 Dose: 25 mg - Labs Labs: 07/09/18 16:40 07/09/18 16:40 PT 11.4 SECONDS (9.4-12.5) 07/09/18 16:40 INR 1.00 07/09/18 16:40 APTT 28.0 Seconds (25.1-36.5) 07/09/18 16:40 - Constitutional Appears: Non-toxic, No Acute Distress, Chronically Ill - Head Exam Head Exam: ATRAUMATIC, NORMOCEPHALIC Additional comments: poor dentition - Eye Exam Eye Exam: absent: Scleral icterus Additional comments: legally blind, gooey material in right eye but not pus. No apparent conjunctivitis. - ENT Exam ENT Exam: Mucous Membranes Moist, Normal External Ear Exam, TM's Normal Bilaterally - Neck Exam Neck Exam: Full ROM, Normal Inspection - Respiratory Exam Respiratory Exam: Clear to Ausculation Bilateral, NORMAL BREATHING PATTERN. absent: Rales, Rhonchi, Wheezes - Cardiovascular Exam Cardiovascular Exam: REGULAR RHYTHM, RRR, +S1, +S2 - GI/Abdominal Exam GI & Abdominal Exam: Soft, Normal Bowel Sounds. absent: Distended, Tenderness - Extremities Exam Additional comments: Right BKA. Left foot with gangrene... wrapped now - Neurological Exam Neurological Exam: Alert, Awake Additional comments: AAO x 2, generally weak, extremities contracted, follows commands and answers questions appropriately. - Psychiatric Exam Psychiatric exam: Normal Affect, Normal Mood - Skin Additional comments: DP and PT pulses nonpalpable. Popliteal pulse nonpalpable. CFT delayed to digits. Temperature gradient cool to cool. Nonpitting edema noted to base of 3rd digit. Presence of dry gangrene to the third digit of the left foot and full thickness ulceration at PIPJ. Podiatry able to express purulence at that time. Hallux and partial 4th digit amputation. Assessment and Plan - Assessment and Plan (Free Text) Assessment: 63 yo AA male with multiple medical issues presenting with gangrene of the left foot specifically the third digit. I believe that is why he was sent to [facility] [facility]. No notes at this time at [facility] on why the patient was transferred. Patient is a very poor historian. Start patient on Cefepime and Vancomycin renally dosed for now. Arrington cultures. Await surgical plan by podiatry after vascular evaluation. WBC on 06/26/2018 was 10.2. Supportive care. Mentally the patient is at his baseline status. This has been his baseline for many years now. PMHx includes but not limited to ESRD on HD, HTN, DM, CAD, dyslipidemia, anemia, hypothyroidism, seizure history, PVD, hypothyroidism, secondary hyperparathyroidism, seizure history, and blindness Thank you for allowing me to participate in the care of the patient, we will follow with you.
[2018-07-11] MEDS: Cefepime 1gm in NS 100ml 1 GM/100 ML BAG IVPB SCH (17:55)
--- NOTE | 2018-07-11 20:17 | US ---
PROCEDURE: Lower extremity BEAU exam HISTORY: Peripheral vascular disease with ischemic pain. Previous left BKA. PHYSICIAN(S): Sergey Jacobs MD. FINDINGS: The exam is limited by calcified vessels. The brachial systolic pressures are symmetric. The PVR waveforms are normal on the right to the ankles. The right metatarsal waveforms are moderately blunted. This could represent vaso constriction or possibly pedal occlusive disease IMPRESSION: 1. Normal right PVR waveforms to the level of the ankle. 2. Previous left BKA.
--- NOTE | 2018-07-12 01:35 | PN ---
DATE: 07/11/2018 SUBJECTIVE: The patient is 63-year-old male. The patient was seen and examined at the bedside on 07/11/2018. The patient is very poor historian, bilaterally blind, looks like not in distress. No fever, no chills. No headache, no dizziness. PHYSICAL EXAMINATION: VITAL SIGNS: Temperature 98.6, pulse 59, respiratory rate 14, blood pressure 112/66, pulse oximetry 98. HEENT: Head normocephalic, atraumatic. Eyes closed. Nose patent. Mucous membrane moist. NECK: Supple. No carotid bruit. No JVD or thyromegaly. CHEST: Bilaterally symmetrical. HEART: S1, S2 positive. LUNGS: Clear to auscultation. ABDOMEN: Soft, bowel sounds present. No organomegaly. LOWER EXTREMITIES: No edema. No cyanosis. Lower extremities, left foot has a dressing and right leg amputation below knee. NEUROLOGICAL: The patient is awake, alert, but not very good historian. MEDICATIONS: Norvasc, Lipitor, ciprofloxacin, cefepime, insulin, Keppra, metoprolol. LABORATORY DATA: White blood cell is 9.1, hemoglobin 11.4, hematocrit 36.7, platelet 337. Sodium 138, potassium 4.8, BUN 31, creatinine 5.7, glucose 161. ASSESSMENT AND PLAN: Mr. Theodore Pedersen is 63-year-old male with anemia, renal insufficiency, hyperglycemia, has multiple medical issues, gangrene of left foot, specifically the third toe osteomyelitis. According to Podiatry, Dr. Blakely, the patient need amputation. The patient was getting rehab in [facility]. The patient is getting cefepime and vancomycin renal doses, pancultures are done, awaiting for surgical opinion. Vascular is working on that also. Dr. Valdez Schofield knows this patient from [facility]. According to him, this patient's mental status level is for many years. The patient has endstage renal disease on hemodialysis, hypertension, diabetes mellitus, coronary artery disease, dyslipidemia, anemia, hypothyroidism, seizure disorder, peripheral vascular disease, secondary hyperparathyroidism and bilaterally blind, getting antibiotics. Gastrointestinal and deep venous thrombosis prophylaxes. Lower extremity MRI done reviewed by me. Extremity ultrasound is done, foot x-ray done. Dr. Gan is the chocolate finisher on the case. We will follow up. Fatmata Wilkins MD [facility] # [id number]
[2018-07-12] MEDS: Insulin Reg-LOW-Coverage SC SCH ×2 (06:36→22:41)
[2018-07-12 06:45] LABS: HEMOGLOBIN 12.2 g/dL (14.0-18.0); MEAN CELL VOLUME 93.8 fl (80.0-105.0); MEAN PLATELET VOLUME 10.2 fl (7.0-11.0); RBC 4.06 10^6/uL (3.5-6.1); RED CELL DISTRIBUTION WIDTH 14.9 % (11.5-14.5); WHITE BLOOD COUNT 7.6 10^3/ul (4.5-11.0)
[2018-07-12 07:24] LABS: CALCIUM 8.9 mg/dL (8.4-10.5)
[2018-07-12 07:44] LABS: IRON 56 ug/dL (45-180)
[2018-07-12 07:53] LABS: % IRON SATURATION 28 % (20-55); TOTAL IRON BINDING CAPACITY 198 ug/dL (261-462)
[2018-07-12 08:32] LABS: HEPATITIS B SURFACE AG Negative (NEGATIVE)
[2018-07-12 08:37] LABS: HEPATITIS B CORE AB NEGATIVE (NEGATIVE)
[2018-07-12] MEDS: Ciprofloxacin 0.3% OPTH SOLN OU SCH ×3 (10:52→17:33)
[2018-07-12] MEDS: Metoprolol Succinate 25 mg XL Tab PO SCH (10:52)
--- NOTE | 2018-07-12 14:40 | CP.PCM.PN ---
Subjective - Date & Time of Evaluation Date of Evaluation: 07/12/18 Time of Evaluation: 14:38 - Subjective Subjective: Consult for Nephrology HPI: 63 yo M w/ pmh of ESRD, HTN, dm, blind that presented for gangrene of L foot. He is unable to give much history - he is fatigued. He has been following w/ podiatry in [place] who thinks he needs amputation. He denies fever/chills/n/v. He endorses reduced po intake. ros: a full detailed ros is negative except as in my hpi pt denies CP/SOB. his ROS is limited. pt usually not very communicative pmh: ESRD TTS,HTN,DM, Anemia, Secondary hyperpara, PAD and as below surg hx: includes R BKA famhx: no esrd in family sochx: lives [place] no active smoke etoh or ivdu all: nkda meds: as below pe: vs as below gen : nad sclera: anicteric op: poor dentition neck: supple cv: +s1+s2 no rub lungs cta abd: soft nt/nd / no organomegaly ext: dressing on L foot r bka neuro: follows commands no asterixis psych: flat affect. lack insight skin dressing on foot ulceration labs and imaging rviewd imp: ESRD on HD TTS schedule HTN/Diabetic kidney/Diabetic foot ulcer/ Anemia of renal disease/ Secondary hyperpara/acute osteomyelitis/left BKA plan: hd tomorrow as per tts schedule. nephrovite 1 tab/day dm per primary resume home bp meds. BP controlled foot ulcer/osteo management as per primary team/podiatry/ID dose abx for esrd hold phos binders for now as last phos low at 2.6 no need for HILTON currently as Hb 12.2 thanks for consult Please call if any Qs Dr Alfred Resendez [phone] Objective - Vital Signs/Intake and Output Vital Signs (last 24 hours): Temp Pulse Resp BP Pulse Ox 98.3 F 62 21 125/74 100 07/12/18 08:08 07/12/18 10:52 07/12/18 08:08 07/12/18 10:53 07/12/18 08:08 Intake and Output: 07/12/18 07/12/18 06:59 18:59 Intake Total 500 Balance 500 - Medications Medications: Current Medications Amlodipine Besylate (Norvasc) 10 mg PO DAILY [facility] Last Admin: 07/12/18 10:53 Dose: 10 mg Atorvastatin Calcium (Lipitor) 80 mg PO DIN [facility] Last Admin: 07/11/18 17:52 Dose: 80 mg Ciprofloxacin (Ciloxan 0.3% [facility] Soln) 1 drop OU TID [facility] Last Admin: 07/12/18 10:52 Dose: 1 drop Cefepime HCl (Maxipime 1gm) 1 gm in 100 mls @ 100 mls/hr IVPB Q24H [facility]; Protocol Last Admin: 07/11/18 17:55 Dose: 100 mls/hr Insulin Human Regular (Humulin R Low) 0 units SC ACHS [facility]; Protocol Last Admin: 07/12/18 06:36 Dose: Not Given Levetiracetam (Keppra) 1,000 mg PO BID [facility] Last Admin: 07/12/18 10:53 Dose: 1,000 mg Metoprolol Succinate (Toprol Xl) 25 mg PO BRK [facility] Last Admin: 07/12/18 10:52 Dose: 25 mg Vitamin B Complex/Vit C/Folic Acid (Nephro-Yocasta) 1 tab PO 0800 [facility] - Labs Labs: 07/12/18 06:20 07/12/18 06:20 PT 11.4 SECONDS (9.4-12.5) 07/09/18 16:40 INR 1.00 07/09/18 16:40 APTT 28.0 Seconds (25.1-36.5) 07/09/18 16:40
--- NOTE | 2018-07-12 15:01 | CP.PCM.PN ---
Subjective - Date & Time of Evaluation Date of Evaluation: 07/12/18 Time of Evaluation: 14:58 - Subjective Subjective: Podiatry Progress Note for Dr. Blakely: 63 yo male patient, seen and evaluated at bedside with Dr. Frost for 3rd digit gangrene. Patient sleeping bedside, answers yes/no to questions. Denies any pain to right foot. Patient denies N/V/F/SOB. Unable to obtain full history. Objective - Vital Signs/Intake and Output Vital Signs (last 24 hours): Temp Pulse Resp BP Pulse Ox 98.3 F 62 21 125/74 100 07/12/18 08:08 07/12/18 10:52 07/12/18 08:08 07/12/18 10:53 07/12/18 08:08 Intake and Output: 07/12/18 07/12/18 06:59 18:59 Intake Total 500 Balance 500 - Medications Medications: Current Medications Amlodipine Besylate (Norvasc) 10 mg PO DAILY [facility] Last Admin: 07/12/18 10:53 Dose: 10 mg Atorvastatin Calcium (Lipitor) 80 mg PO DIN [facility] Last Admin: 07/11/18 17:52 Dose: 80 mg Ciprofloxacin (Ciloxan 0.3% Oph Soln) 1 drop OU TID [facility] Last Admin: 07/12/18 10:52 Dose: 1 drop Cefepime HCl (Maxipime 1gm) 1 gm in 100 mls @ 100 mls/hr IVPB Q24H [facility]; Protocol Last Admin: 07/11/18 17:55 Dose: 100 mls/hr Insulin Human Regular (Humulin R Low) 0 units SC ACHS [facility]; Protocol Last Admin: 07/12/18 06:36 Dose: Not Given Levetiracetam (Keppra) 1,000 mg PO BID [facility] Last Admin: 07/12/18 10:53 Dose: 1,000 mg Metoprolol Succinate (Toprol Xl) 25 mg PO BRK [facility] Last Admin: 07/12/18 10:52 Dose: 25 mg Vitamin B Complex/Vit C/Folic Acid (Nephro-Yocasta) 1 tab PO 0800 [facility] - Labs Labs: 07/12/18 06:20 07/12/18 06:20 PT 11.4 SECONDS (9.4-12.5) 07/09/18 16:40 INR 1.00 07/09/18 16:40 APTT 28.0 Seconds (25.1-36.5) 07/09/18 16:40 - Constitutional Appears: Well, Non-toxic, No Acute Distress - Head Exam Head Exam: ATRAUMATIC, NORMOCEPHALIC - Extremities Exam Additional comments: RLE focused physical exam, Left BKA appreciated: Vasc: DP and PT pulses nonpalpable, CFT delayed to remaining digits, Temperature gradient cool to cool. +2 edema noted to 3rd digit. Neuro: Gross and protective sensation diminished Derm: Thin, friable skin present. Dry gangrene noted to distal half of 3rd digit and full thickness ulceration around PIPJ with exposed head of proximal phalanx. No drainage, no purulence appreciated, no cellulitis, mild erythema present to 3rd digit. Elongated, dystrophic 2nd and 5th digit nails Ortho: Hallux and partial 4th digit amputations. - Psychiatric Exam Psychiatric exam: Normal Affect Assessment and Plan - Assessment and Plan (Free Text) Assessment: 63yo male patient seen and evaluated for right 3rd digit dry gangrene secondary to PVD Plan: Patient seen and evaluated at bedside with Dr. Santosh GLORIA, absent leukocytosis Right foot XR (07/09): Postoperative changes. No objective radiographic evidence of acute osteomyelitis RLE MRI (07/10): bony destruction and marrow edema in the 3rd toe consistent with acute OM Right foot wound culture (07/10): staph aureus Continue with Cefepime and Vancomycin per ID reccs Continue local wound care: betadine, DSD Elongated, dystrophic nails debrided with large nail nipper to patient tolerance without incident f/u Vascular consult Plan for 3rd digit amputation Thursday at 9:[address] Blakely, please optimize patient for surgery Podiatry will continue to follow while in house
--- NOTE | 2018-07-12 16:04 | CP.PCM.PN ---
Subjective - Date & Time of Evaluation Date of Evaluation: 07/12/18 Time of Evaluation: 15:00 - Subjective Subjective: Infectious Disease Follow Up: July 12, 2018 63 yo AA male with PMHx of ESRD on HD, HTN, DM, CAD, dyslipidemia, anemia, hypothyroidism, seizure history, and blindness presenting with gangrene of the Left foot. Seen by Podiatry in [facility] at [facility] who felt amputation was needed (I believe Dr. Blakely was the reservations sales agent following). Dr. Gan for renal and Dr. Holm for neurology. The patient himself gives very little information and often appears distant. I have seen the patient in [facility] in the past. I do know that the patient was being transitioned to fpc care at [facility]. Awaiting vascular evaluation and podiatry final recommendations regarding surgical options if any on the foot. MRI showing acute osteomyelitis of the 3rd toe of the left foot. Dr. Blakely planning for 3rd digit amputation of the left foot. Objective - Vital Signs/Intake and Output Vital Signs (last 24 hours): Temp Pulse Resp BP Pulse Ox 98.3 F 62 21 125/74 100 07/12/18 08:08 07/12/18 10:52 07/12/18 08:08 07/12/18 10:53 07/12/18 08:08 Intake and Output: 07/12/18 07/12/18 06:59 18:59 Intake Total 500 Balance 500 - Medications Medications: Current Medications Amlodipine Besylate (Norvasc) 10 mg PO DAILY [facility] Last Admin: 07/12/18 10:53 Dose: 10 mg Atorvastatin Calcium (Lipitor) 80 mg PO DIN [facility] Last Admin: 07/11/18 17:52 Dose: 80 mg Ciprofl[facility] 1 drop OU TID [facility] Last Admin: 07/12/18 10:52 Dose: 1 drop Cefepime HCl (Maxipime 1gm) 1 gm in 100 mls @ 100 mls/hr IVPB Q24H [facility]; Protocol Last Admin: 07/11/18 17:55 Dose: 100 mls/hr Insulin Human Regular (Humulin R Low) 0 units SC ACHS [facility]; Protocol Last Admin: 07/12/18 06:36 Dose: Not Given Levetiracetam (Keppra) 1,000 mg PO BID [facility] Last Admin: 07/12/18 10:53 Dose: 1,000 mg Metoprolol Succinate (Toprol Xl) 25 mg PO BRK [facility] Last Admin: 07/12/18 10:52 Dose: 25 mg Vitamin B Complex/Vit C/Folic Acid (Nephro-Yocasta) 1 tab PO 0800 [facility] - Labs Labs: 07/12/18 06:20 07/12/18 06:20 PT 11.4 SECONDS (9.4-12.5) 07/09/18 16:40 INR 1.00 07/09/18 16:40 APTT 28.0 Seconds (25.1-36.5) 07/09/18 16:40 - Constitutional Appears: Non-toxic, No Acute Distress, Chronically Ill - Head Exam Head Exam: ATRAUMATIC, NORMOCEPHALIC Additional comments: poor dentition - Eye Exam Eye Exam: Scleral icterus Additional comments: legally blind, had gooey material in right eye but not pus on initial admission. No apparent conjunctivitis. - ENT Exam ENT Exam: Mucous Membranes Moist, Normal External Ear Exam, TM's Normal Bilaterally - Neck Exam Neck Exam: Full ROM, Normal Inspection - Respiratory Exam Respiratory Exam: Clear to Ausculation Bilateral, NORMAL BREATHING PATTERN. absent: Rales, Rhonchi, Wheezes - Cardiovascular Exam Cardiovascular Exam: REGULAR RHYTHM, RRR, +S1, +S2 - GI/Abdominal Exam GI & Abdominal Exam: Soft, Normal Bowel Sounds. absent: Distended, Tenderness - Extremities Exam Additional comments: Right BKA. Left foot with gangrene... wrapped now - Neurological Exam Neurological Exam: Alert, Awake Additional comments: AAO x 2, generally weak, extremities contracted, follows commands and answers questions appropriately - Psychiatric Exam Psychiatric exam: Normal Affect, Normal Mood - Skin Additional comments: DP and PT pulses nonpalpable. Popliteal pulse nonpalpable. CFT delayed to digits. Temperature gradient cool to cool. Nonpitting edema noted to base of 3rd digit. Presence of dry gangrene to the third digit of the left foot and full thickness ulceration at PIPJ. Podiatry able to express purulence at that time. Hallux and partial 4th digit amputation. Assessment and Plan - Assessment and Plan (Free Text) Assessment: 63 yo AA male with multiple medical issues presenting with gangrene of the left foot specifically the third digit. I believe that is why he was sent to [facility]. No notes at this time at [facility] at [facility] on why the patient was transferred. Patient is a very poor historian. Start patient on Cefepime and Vancomycin renally dosed for now. Arrington cultures. Await surgical plan by podiatry after vascular evaluation. WBC on 06/26/2018 was 10.2. Supportive care. Mentally the patient is at his baseline status. This has been his baseline for many years now. PMHx includes but not limited to ESRD on HD, HTN, DM, CAD, dyslipidemia, anemia, hypothyroidism, seizure history, PVD, hypothyroidism, secondary hyperparathyroidism, seizure history, and blindness Scheduled for 3rd digit amputation on 07/14/[address] Blakely. Thank you for allowing me to participate in the care of the patient, we will follow with you.
[2018-07-12 16:57] LABS: FOLATE 5.5 ng/mL
[2018-07-12] MEDS: Cefepime 1gm in NS 100ml 1 GM/100 ML BAG IVPB SCH (17:32)
[2018-07-13] MEDS: Insulin Reg-LOW-Coverage SC SCH ×4 (06:59→22:25)
--- NOTE | 2018-07-13 07:43 | PN ---
DATE: 07/12/2018 SUBJECTIVE: Patient is 63-year-old male. Patient was seen and examined at the bedside on 07/12/2018. Looking comfortable. No nausea, vomiting, or diarrhea. Patient is a very poor historian. Denies any pain in the foot. Denies any nausea, vomiting, or shortness of breath. Unable to obtain full review of systems. PHYSICAL EXAMINATION: VITAL SIGNS: Temperature 98.3, pulse 62, respiratory rate 21, blood pressure 125/74, pulse oximetry 100. HEENT: Head: Normocephalic, atraumatic. Eyes: Patient is bilaterally blind. Nose patent. Mucous membrane moist. NECK: Supple. No carotid bruit. No JVD or thyromegaly. CHEST: Bilaterally symmetrical. HEART: S1, S2 positive. LUNGS: Clear to auscultation. ABDOMEN: Soft, bowel sounds present. No organomegaly. EXTREMITIES: No edema. No cyanosis. NEUROLOGICAL: The patient is awake, alert, but sometimes getting confusion. MEDICATIONS: Norvasc, Lipitor, ciprofloxacin, cefepime, insulin, Keppra, Toprol, multivitamins. LABORATORY DATA: White blood cells 7.6, hemoglobin 12.2, hematocrit 38.1, platelets 318. Sodium 135, potassium 4.9, BUN 42, creatinine 6.2, glucose 83. ASSESSMENT AND PLAN: Mr. Theodore Pedersen, 63-year-old male, has anemia, renal insufficiency, hypochloremia, has right third toe dry gangrene secondary to severe peripheral vascular disease. Dr. Frost is on the case. No objective radiographic evidence for acute osteomyelitis as per Dr. Frost. Continue cefepime, vancomycin. Continue local wound care. Follow up vascular consult. Plan is to have third digit amputation planned with Dr. Blakely. Seen by Dr. Alfred Resendez, plating foreman, history end-stage renal disease, hypertension, diabetes mellitus, blind, secondary hyperparathyroidism, history of right below-knee amputation. Patient has end-stage renal disease, on hemodialysis, TTS schedule. Tomorrow, he is going for dialysis. Gastrointestinal and deep venous thrombosis prophylaxes. Repeat labs. We will follow up. Fatmata Wilkins MD
[2018-07-13] MEDS: Multivitamin Vitamin B Complex (Nephro-Vite) Tab PO SCH (15:04)
[2018-07-13] MEDS: Metoprolol Succinate 25 mg XL Tab PO SCH (15:07)
--- NOTE | 2018-07-13 15:47 | CP.PCM.PN ---
Subjective - Date & Time of Evaluation Date of Evaluation: 07/13/18 Time of Evaluation: 14:30 - Subjective Subjective: Infectious Disease Follow Up: July 13, 2018 63 yo AA male with PMHx of ESRD on HD, HTN, DM, CAD, dyslipidemia, anemia, hypothyroidism, seizure history, and blindness presenting with gangrene of the Left foot. Seen by Podiatry in [facility] at [facility] who felt amputation was needed (I believe Dr. Blakely was the shirring machine operator following). Dr. Gan for renal and Dr. Holm for neurology. The patient himself gives very little information and often appears distant. I have seen the patient in [facility] in the past. I do know that the patient was being transitioned to residential care at [facility]. Awaiting vascular evaluation and podiatry final recommendations regarding surgical options if any on the foot. MRI showing acute osteomyelitis of the 3rd toe of the left foot. Dr. Blakely planning for 3rd digit amputation of the left foot on Thursday07/14/2018. Noted MSSA in one of the wound cultures. Objective - Vital Signs/Intake and Output Vital Signs (last 24 hours): Temp Pulse Resp BP Pulse Ox 97.3 F L 86 18 133/85 94 L 07/13/18 14:00 07/13/18 15:07 07/13/18 14:00 07/13/18 15:07 07/13/18 14:00 - Medications Medications: Current Medications Amlodipine Besylate (Norvasc) 10 mg PO DAILY [facility] Last Admin: 07/13/18 15:05 Dose: 10 mg Atorvastatin Calcium (Lipitor) 80 mg PO DIN [facility] Last Admin: 07/12/18 17:32 Dose: 80 mg Ciprofloxacin ([facility] 1 drop OU TID [facility] Last Admin: 07/12/18 17:33 Dose: 1 drop Cefepime HCl (Maxipime 1gm) 1 gm in 100 mls @ 100 mls/hr IVPB Q24H [facility]; Protocol Last Admin: 07/12/18 17:32 Dose: 100 mls/hr Insulin Human Regular (Humulin R Low) 0 units SC ACHS [facility]; Protocol Last Admin: 07/13/18 15:08 Dose: Not Given Levetiracetam (Keppra) 1,000 mg PO BID [facility] Last Admin: 07/13/18 15:04 Dose: 1,000 mg Metoprolol Succinate (Toprol Xl) 25 mg PO BRK [facility] Last Admin: 07/13/18 15:07 Dose: 25 mg Vitamin B Complex/Vit C/Folic Acid (Nephro-Yocasta) 1 tab PO 0800 [facility] Last Admin: 07/13/18 15:04 Dose: 1 tab - Labs Labs: 07/12/18 06:20 07/12/18 06:20 PT 11.4 SECONDS (9.4-12.5) 07/09/18 16:40 INR 1.00 07/09/18 16:40 APTT 28.0 Seconds (25.1-36.5) 07/09/18 16:40 - Constitutional Appears: Non-toxic, No Acute Distress, Chronically Ill - Head Exam Head Exam: ATRAUMATIC, NORMOCEPHALIC Additional comments: poor dentition. - Eye Exam Eye Exam: EOMI, PERRL Pupil Exam: NORMAL ACCOMODATION, PERRL - ENT Exam ENT Exam: Mucous Membranes Moist, Normal External Ear Exam, TM's Normal Bilaterally - Neck Exam Neck Exam: Full ROM, Normal Inspection - Respiratory Exam Respiratory Exam: Clear to Ausculation Bilateral, NORMAL BREATHING PATTERN. absent: Rales, Rhonchi, Wheezes - Cardiovascular Exam Cardiovascular Exam: REGULAR RHYTHM, RRR, +S1, +S2 - GI/Abdominal Exam GI & Abdominal Exam: Soft, Normal Bowel Sounds. absent: Distended, Tenderness - Extremities Exam Additional comments: Right BKA. Left foot with gangrene... wrapped DP and PT pulses nonpalpable. Popliteal pulse nonpalpable. CFT delayed to digits. Temperature gradient cool to cool. Nonpitting edema noted to base of 3rd digit. Presence of dry gangrene to the third digit of the left foot and full thickness ulceration at PIPJ. Podiatry able to express purulence at that time. Hallux and partial 4th digit amputation. - Neurological Exam Neurological Exam: Alert, Awake, CN II-XII Intact, Oriented x3 - Psychiatric Exam Psychiatric exam: Normal Affect, Normal Mood - Skin Additional comments: As above. Assessment and Plan - Assessment and Plan (Free Text) Assessment: 63 yo AA male with multiple medical issues presenting with gangrene of the left foot specifically the third digit. I believe that is why he was sent [place] [facility] No notes at this time at [facility] on why the patient was transferred. Patient is a very poor historian. Started patient on Cefepime and Vancomycin renally dosed for now. Arrington cultures. Await surgical plan by podiatry after vascular evaluation. WBC on 06/26/2018 was 10.2. Supportive care. Mentally the patient is at his baseline status. This has been his baseline for many years now. PMHx includes but not limited to ESRD on HD, HTN, DM, CAD, dyslipidemia, anemia, hypothyroidism, seizure history, PVD, hypothyroidism, secondary hyperparathyroidism, seizure history, and blindness. With MSSA findings, will change patient to Ancef with HD 2gm. Stop Cefepime and Vancomycin. Scheduled for 3rd digit amputation on 07/14/[address] Blakely. Thank you for allowing me to participate in the care of the patient, we will follow with you.
--- NOTE | 2018-07-13 15:56 | CP.PCM.PN ---
Subjective - Date & Time of Evaluation Date of Evaluation: 07/13/18 Time of Evaluation: 15:55 - Subjective Subjective: Consult for Nephrology HPI: 63 yo M w/ pmh of ESRD, HTN, dm, blind that presented for gangrene of L foot. He is unable to give much history - he is fatigued. He has been following w/ podiatry in [place] who thinks he needs amputation. He denies fever/chills/n/v. He endorses reduced po intake. ros: a full detailed ros is negative except as in my hpi pt denies CP/SOB. his ROS is limited. pt usually not very communicative pmh: ESRD TTS,HTN,DM, Anemia, Secondary hyperpara, PAD and as below surg hx: includes R BKA famhx: no esrd in family sochx: lives [place] no active smoke etoh or ivdu all: nkda meds: as below pe: vs as below gen : nad sclera: anicteric op: poor dentition neck: supple cv: +s1+s2 no rub lungs cta abd: soft nt/nd / no organomegaly ext: dressing on L foot r bka neuro: follows commands no asterixis psych: flat affect. lack insight skin dressing on foot ulceration labs and imaging rviewd imp: ESRD on HD TTS schedule HTN/Diabetic kidney/Diabetic foot ulcer/ Anemia of renal disease/ Secondary hyperpara/acute osteomyelitis/left BKA plan: hd today as per tts schedule. nephrovite 1 tab/day dm per primary resume home bp meds. BP controlled foot ulcer/osteo management as per primary team/podiatry/ID dose abx for esrd hold phos binders for now as last phos low at 2.6 no need for HILTON currently as Hb 12.2 thanks for consult Please call if any Qs Dr Alfred Resendez [phone] Objective - Vital Signs/Intake and Output Vital Signs (last 24 hours): Temp Pulse Resp BP Pulse Ox 97.3 F L 86 18 133/85 94 L 07/13/18 14:00 07/13/18 15:07 07/13/18 14:00 07/13/18 15:07 07/13/18 14:00 - Medications Medications: Current Medications Amlodipine Besylate (Norvasc) 10 mg PO DAILY [facility] Last Admin: 10/09/18 15:05 Dose: 10 mg Atorvastatin Calcium (Lipitor) 80 mg PO DIN [facility] Last Admin: 07/12/18 17:32 Dose: 80 mg Ciprofloxacin (Ciloxan 0.3% Oph Soln) 1 drop OU TID [facility] Last Admin: 07/12/18 17:33 Dose: 1 drop Cefepime HCl (Maxipime 1gm) 1 gm in 100 mls @ 100 mls/hr IVPB Q24H [facility]; Protocol Last Admin: 07/12/18 17:32 Dose: 100 mls/hr Insulin Human Regular (Humulin R Low) 0 units SC ACHS [facility]; Protocol Last Admin: 07/13/18 15:08 Dose: Not Given Levetiracetam (Keppra) 1,000 mg PO BID [facility] Last Admin: 07/13/18 15:04 Dose: 1,000 mg Metoprolol Succinate (Toprol Xl) 25 mg PO BRK [facility] Last Admin: 07/13/18 15:07 Dose: 25 mg Vitamin B Complex/Vit C/Folic Acid (Nephro-Yocasta) 1 tab PO 0800 [facility] Last Admin: 07/13/18 15:04 Dose: 1 tab - Labs Labs: 07/12/18 06:20 07/12/18 06:20 PT 11.4 SECONDS (9.4-12.5) 07/09/18 16:40 INR 1.00 07/09/18 16:40 APTT 28.0 Seconds (25.1-36.5) 07/09/18 16:40
[2018-07-13] MEDS: Ciprofloxacin 0.3% OPTH SOLN OU SCH ×3 (16:34→18:13)
--- NOTE | 2018-07-13 17:15 | CP.PCM.PN ---
<Andreina Samaniego - Last Filed: 07/13/18 17:24> Subjective - Date & Time of Evaluation Date of Evaluation: 07/13/18 Time of Evaluation: 17:11 - Subjective Subjective: Podiatry Progress Note for Dr. Blakely: 63 yo male patient, seen and evaluated at bedside with Dr. Blakely for 3rd digit gangrene with active purulence. Patient resting comfortably in bed, however fatigued and unresponsive to questions. Unable to obtain full HPI. Objective - Vital Signs/Intake and Output Vital Signs (last 24 hours): Temp Pulse Resp BP Pulse Ox 97.3 F L 86 18 133/85 94 L 07/13/18 14:00 07/13/18 15:07 07/13/18 14:00 07/13/18 15:07 07/13/18 14:00 - Medications Medications: Current Medications Amlodipine Besylate (Norvasc) 10 mg PO DAILY [facility] Last Admin: 07/13/18 15:05 Dose: 10 mg Atorvastatin Calcium (Lipitor) 80 mg PO DIN [facility] Last Admin: 07/12/18 17:32 Dose: 80 mg Ciprofloxacin (Ciloxan 0.3% Oph Soln) 1 drop OU TID [facility] Last Admin: 07/13/18 16:34 Dose: 1 drop Cefepime HCl (Maxipime 1gm) 1 gm in 100 mls @ 100 mls/hr IVPB Q24H [facility]; Protocol Last Admin: 07/12/18 17:32 Dose: 100 mls/hr Insulin Human Regular (Humulin R Low) 0 units SC ACHS [facility]; Protocol Last Admin: 07/13/18 15:08 Dose: Not Given Levetiracetam (Keppra) 1,000 mg PO BID [facility] Last Admin: 07/13/18 15:04 Dose: 1,000 mg Metoprolol Succinate (Toprol Xl) 25 mg PO BRK [facility] Last Admin: 07/13/18 15:07 Dose: 25 mg Vitamin B Complex/Vit C/Folic Acid (Nephro-Yocasta) 1 tab PO 0800 [facility] Last Admin: 07/13/18 15:04 Dose: 1 tab - Labs Labs: 07/12/18 06:20 07/12/18 06:20 PT 11.4 SECONDS (9.4-12.5) 07/09/18 16:40 INR 1.00 07/09/18 16:40 APTT 28.0 Seconds (25.1-36.5) 07/09/18 16:40 - Constitutional Appears: Well, No Acute Distress - Extremities Exam Additional comments: RLE focused physical exam Vasc: DP and PT pulses nonpalpable, CFT delayed to remaining digits, Temperature gradient cool to cool. +2 edema noted to 3rd digit. Neuro: Gross and protective sensation diminished Derm: Thin, friable skin present. Dry gangrene noted to distal half of 3rd digit and full thickness ulceration around PIPJ with exposed head of proximal phalanx. Digit fixed, 1cc of purulence noted to lateral aspect of 3rd digit, no cellulitis, mild erythema present to 3rd digit. Ortho: Hallux and partial 4th digit amputations, L BKA appreciated - Neurological Exam Neurological Exam: Alert, Awake - Psychiatric Exam Psychiatric exam: Normal Affect Assessment and Plan - Assessment and Plan (Free Text) Assessment: 63yo male patient with right 3rd digit dry gangrene with active purulent drainage secondary to PVD Plan: Patient seen and evaluated at bedside with Dr. Blakely Plan for 3rd digit amputation Thursday at 9:[address] Blakely, please optimize patient for surgery Spoke with Kesha MOON ([phone]), today regarding plan for surgery. Will call her again tomorrow morning for consent NPO past midnight Right foot XR (07/09): Postoperative changes. No objective radiographic evidence of acute osteomyelitis RLE MRI (07/10): bony destruction and marrow edema in the 3rd toe consistent with acute OM Right foot wound culture (07/10): staph aureus Continue local wound care: betadine, DSD Multi-podus boots ordered; to be worn at all times while in bed Podiatry will continue to follow while in house <Loco Blakely - Last Filed: 07/13/18 18:40> Objective - Vital Signs/Intake and Output Vital Signs (last 24 hours): Temp Pulse Resp BP Pulse Ox 97.3 F L 86 18 133/85 94 L 07/13/18 14:00 07/13/18 15:07 07/13/18 14:00 07/13/18 15:07 07/13/18 14:00 - Medications Medications: Current Medications Amlodipine Besylate (Norvasc) 10 mg PO DAILY [facility] Last Admin: 07/13/18 15:05 Dose: 10 mg Atorvastatin Calcium (Lipitor) 80 mg PO DIN [facility] Last Admin: 07/13/18 18:12 Dose: 80 mg Ciprofloxacin (Ciloxan 0.3% [facility]) 1 drop OU TID [facility] Last Admin: 07/13/18 18:13 Dose: 1 drop Cefepime HCl (Maxipime 1gm) 1 gm in 100 mls @ 100 mls/hr IVPB Q24H [facility]; Protocol Last Admin: 07/13/18 18:12 Dose: 100 mls/hr Insulin Human Regular (Humulin R Low) 0 units SC ACHS [facility]; Protocol Last Admin: 07/13/18 17:59 Dose: Not Given Levetiracetam (Keppra) 1,000 mg PO BID [facility] Last Admin: 07/13/18 18:12 Dose: 1,000 mg Metoprolol Succinate (Toprol Xl) 25 mg PO BRK [facility] Last Admin: 07/13/18 15:07 Dose: 25 mg Vitamin B Complex/Vit C/Folic Acid (Nephro-Yocasta) 1 tab PO 0800 [facility] Last Admin: 07/13/18 15:04 Dose: 1 tab - Labs Labs: 07/12/18 06:20 07/12/18 06:20 PT 11.4 SECONDS (9.4-12.5) 07/09/18 16:40 INR 1.00 07/09/18 16:40 APTT 28.0 Seconds (25.1-36.5) 07/09/18 16:40 Attending/Attestation - Attestation I have personally seen and examined this patient.: Yes I have fully participated in the care of the patient.: Yes I have reviewed all pertinent clinical information, including history, physical exam and plan: Yes
[2018-07-13] MEDS: Cefepime 1gm in NS 100ml 1 GM/100 ML BAG IVPB SCH (18:12)
--- NOTE | 2018-07-13 23:58 | PN ---
DATE: 07/13/2018 SUBJECTIVE: The patient is 63-year-old male. The patient was seen and examined at bedside on 07/13/2018. The patient is looking comfortable. No fever, no chills. No nausea, vomiting, or diarrhea. The patient is blind bilaterally. Has gangrene of the foot. He is unable to give much history and much review of systems. He is fatigued. Podiatry has followed up. Discussion done with Dr. Blakely. According to Dr. Blakely, the patient is going tomorrow for amputation of the toe. EKG, chest x-ray and blood tests ordered. According to him, it will be under local anesthesia, but want to make sure I put Cardiology and Pulmonary consult. PHYSICAL EXAMINATION: VITAL SIGNS: Temperature 97.3, pulse 66, respiratory rate 18, blood pressure 133/85, pulse oximetry 94. HEENT: Head normocephalic, atraumatic. Eyes: PERRLA. Extraocular muscles intact. Conjunctivae clear. Nose patent. Mucous membrane moist. NECK: Supple. No carotid bruit. No JVD or thyromegaly. CHEST: Bilaterally symmetrical. HEART: S1, S2 positive. LUNGS: Clear to auscultation. ABDOMEN: Soft. Bowel sounds present. No organomegaly. EXTREMITIES: No edema, no cyanosis. NEUROLOGICAL: The patient is awake, alert. Moving all 4 extremities. No focal deficit. LABORATORY DATA: White blood cells 7.6, hemoglobin 12.2, hematocrit 38.1, platelets 318. Sodium 134, potassium 4.9, BUN 42, creatinine 6.4, glucose 83. ASSESSMENT AND PLAN: Mr. 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 The patient has end-stage renal disease, getting dialysis TTS; hyperparathyroidism; peripheral arterial disease. Discussion done with Dr. Loco Blakely. The patient is cleared for surgery with moderate risk. Still wait for the clearance from Cardiology and Pulmonary. The patient will go for chest x-ray and EKG. Repeat labs. We will follow up. Fatmata Wilkins MD [facility] # [phone]
--- NOTE | 2018-07-14 04:13 | CON ---
DATE: 07/13/2018 REFERRING PHYSICIAN: Fatmata Wilkins MD REASON FOR CONSULT: Daytime hypersomnia, rule out sleep apnea syndrome, peripheral vascular disease with ischemia. HISTORY OF PRESENT ILLNESS: This is a 63-year-old gentleman who has renal failure, dialysis dependent, hypertension, diabetes, coronary artery disease, anemia, hypothyroid, history of seizure disorder, blindness, history of peripheral vascular disease with left BKA. The patient is a very poor historian, presently lying in the bed, seen by Podiatry, Infectious Diseases. No hemoptysis. No hematemesis. No hematuria, no diarrhea. He has history of snoring, daytime sleepy and tired. PAST MEDICAL HISTORY: As per history of present illness. ALLERGIES: NONE KNOWN. SOCIAL HISTORY: Denying any current smoking or alcohol use. FAMILY HISTORY: No significant cardiopulmonary disease reported. MEDICATIONS: He is on Cipro eye drops, insulin coverage, Keppra 1 g p.o. twice a day, Lipitor 80 mg daily, cefepime 1 g every 24 hours, Nephro vitamins daily, Norvasc 10 mg daily, Toprol XL 25 mg daily. REVIEW OF SYSTEMS: Sleepy, tired. Denying any cough, short of breath with exertion. No nausea, no vomiting, no diarrhea, history of left BKA, right foot has nonhealing ulcer with dressing. PHYSICAL EXAMINATION: GENERAL: Sleepy, arousable. VITAL SIGNS: Temperature is 98, heart rate is 86, respiratory rate is 18, blood pressure 133/85, pulse ox 94% on nasal cannula. HEENT: Moist mucous membrane. Crowded airway. Mallampati score is 4. NECK: Supple. No JVD. LUNGS: Have a poor effort. Fair airflow with rhonchi. HEART: S1 AND S2 ABDOMEN: Soft, nontender, nondistended. EXTREMITIES: Left-sided BKA. Right foot has a multiple nonhealing ulcer dressing. NEUROLOGIC: Sleepy, arousable. LABORATORY DATA: Shows hemoglobin 12.2, hematocrit 38.1, WBC 7.6, platelet is 318. Sed rate is 64. VBG show pH 7.34, pCO2 of 65, O2 is 48. Blood sugar is 80. Sodium 134, potassium 4.9, chloride 97, bicarbonate 27, BUN 42, creatinine 6.2, hemoglobin A1c 5, calcium 8.9. Iron is 56. TSH 2.75. Microbiology, blood culture is negative. Foot culture is staph aureus. IMPRESSION AND PLAN: Severe vascular peripheral disease with left below knee amputation, right foot toes gangrenous, has methicillin-resistant Staphylococcus aureus in the wound. Other issues are renal failure, dialysis dependent, diabetes, coronary artery disease, hyperlipidemia, anemia, hypothyroid, seizure disorder, he is blind. Being followed by Infectious Disease and Podiatry. We will recommend keep head elevated at 45 degrees. Add inhaled bronchodilator for pulmonary toilet. Sleep apnea precaution. Careful with sedation. Thank you and we will follow with you. Jeff Trinh MD
[2018-07-14] MEDS: Insulin Reg-LOW-Coverage SC SCH ×3 (07:30→22:08)
--- NOTE | 2018-07-14 07:43 | CP.PCM.CON ---
History of Present Illness - History of Present Illness History of Present Illness: Awake, but unable to answer questions, poor historian Reason for consultation: Cardiac evaluation for surgery of right third toe amput ation, risk stratification Brief history of present illness: A 63 year old male who was brought in to the ER from intermediate due to right third toe gangrene. Patient is poor historian, chart reviewed. History of ESRD on dialysis (TTS), left AV graft. diabetes, hyperthyroidism, PVD, left BKA, legally blind, hypertension, hyperlipidemia, seizures, anemia, hypothyroidism,gastritis, GI bleeding, post angioplasty of right leg 07/2017,peripheral neuropathy,coronary artery disease. Seen and examined by me and Dr. Ashraf Review of Systems - Review of Systems All systems: reviewed and no additional remarkable complaints except Review of Systems: as per HPI Past Patient History - Infectious Disease Hx of Infectious Diseases: None - Past Social History Smoking Status: Former Smoker - CARDIAC Hx Cardiac Disorders: Yes Hx Hypertension: Yes - PULMONARY Hx Respiratory Disorders: No - NEUROLOGICAL Hx Dementia: Yes Hx Seizures: Yes Other/Comment: Toxic metabolic encephalopathy - HEENT Hx HEENT Problems: Yes Other/Comment: DYSPHAGIA - RENAL Hx Renal Failure: Yes (with dialysis) - ENDOCRINE/METABOLIC Hx Diabetes Mellitus Type 2: Yes Hx Hypothyroidism: Yes - HEMATOLOGICAL/ONCOLOGICAL Hx Blood Transfusions: No Hx Blood Transfusion Reaction: No - INTEGUMENTARY Hx Dermatological Problems: Yes Other/Comment: GANGRENE - MUSCULOSKELETAL/RHEUMATOLOGICAL Hx Falls: Yes - GASTROINTESTINAL Hx Gastrointestinal Disorders: Yes Other/Comment: Gastritis, GI bleeding 2/2; Esophagitis; Roxana Amaya tear; - GENITOURINARY/GYNECOLOGICAL Hx Incontinence: Yes - PSYCHIATRIC Hx Substance Use: No - SURGICAL HISTORY Hx Surgeries: Yes - ANESTHESIA Hx Anesthesia Reactions: No Hx Malignant Hyperthermia: No Meds Allergies/Adverse Reactions: Allergies Allergy/AdvReac Type Severity Reaction Status Date / Time No Known Allergies Allergy Verified 07/09/18 15:52 - Medications Medications: Current Medications Amlodipine Besylate (Norvasc) 10 mg PO DAILY [facility] Last Admin: 07/13/18 15:05 Dose: 10 mg Atorvastatin Calcium (Lipitor) 80 mg PO DIN [facility] Last Admin: 07/13/18 18:12 Dose: 80 mg Ciprofloxacin (Ciloxan 0.3% Oph Soln) 1 drop OU TID [facility] Last Admin: 07/13/18 18:13 Dose: 1 drop Cefepime HCl (Maxipime 1gm) 1 gm in 100 mls @ 100 mls/hr IVPB Q24H [facility]; Protocol Last Admin: 07/13/18 18:12 Dose: 100 mls/hr Insulin Human Regular (Humulin R Low) 0 units SC ACHS [facility]; Protocol Last Admin: 07/13/18 22:25 Dose: Not Given Levetiracetam (Keppra) 1,000 mg PO BID [facility] Last Admin: 07/13/18 18:12 Dose: 1,000 mg Metoprolol Succinate (Toprol Xl) 25 mg PO BRK [facility] Last Admin: 07/13/18 15:07 Dose: 25 mg Vitamin B Complex/Vit C/Folic Acid (Nephro-Yocasta) 1 tab PO 0800 [facility] Last Admin: 07/13/18 15:04 Dose: 1 tab Physical Exam - Constitutional Appears: Non-toxic, No Acute Distress - Head Exam Head Exam: NORMAL INSPECTION, NORMOCEPHALIC - Eye Exam Additional comments: legally blind - ENT Exam ENT Exam: Mucous Membranes Dry - Respiratory Exam Respiratory Exam: Clear to Auscultation Bilateral, NORMAL BREATHING PATTERN - Cardiovascular Exam Cardiovascular Exam: REGULAR RHYTHM, +S1, +S2 - GI/Abdominal Exam GI & Abdominal Exam: Normal Bowel Sounds, Soft - Extremities Exam Additional comments: right foot wrapped with kerlex Left below knee amputation, stump intact and dry - Neurological Exam Neurological exam: Alert Additional comments: awake - Psychiatric Exam Psychiatric exam: Normal Affect, Normal Mood - Skin Skin Exam: Dry, Normal Color, Warm Results - Vital Signs Recent Vital Signs: Last Vital Signs Temp 98.2 F 07/13/18 22:21 Pulse 76 07/13/18 22:21 Resp 18 07/13/18 22:21 BP 103/68 07/13/18 22:21 Pulse Ox 100 07/13/18 22:21 - Labs Result Diagrams: 07/12/18 06:20 07/12/18 06:20 Labs: Laboratory Results - last 24 hr 07/13/18 07/13/18 16:21 21:36 POC Glucose (mg/dL) 80 174 H Assessment & Plan - Assessment and Plan (Free Text) Assessment: A 63 year old male who was brought in to the ER from intermediate due to right third toe gangrene. Patient is poor historian, chart reviewed. History of ESRD on dialysis (TTS), left AV graft. diabetes, hyperthyroidism, PVD, left BKA, legally blind, hypertension, hyperlipidemia, seizures, anemia, hypothyroidism,gastritis, GI bleeding, post angioplasty of right leg 07/2017,peripheral neuropathy,coronary artery disease.He is not in distress. Denies chest pain or shortness of breath. EKG -normal sinus rhthym,no ischemia. No evidence of heart failure, denies shortness of breath. Recent chest X ray showed-normal,no congestion. Moderate to high risk for surgery. No absolute contraindication for surgery.Cleared for surgery from cardiac standpoint. Plan: No distress, denies chest pain or shortness of breath Cleared for surgery from cardiac standpoint Moderate to high risk considering co-morbidities Blood pressure controlled Heart rate controlled On Lopressor and Norvasc TSH normal level Continue current treatment Continue current medications Chart reviewed Will follow up postoperatively Plan and treatment discussed with Dr. Ashraf Thank you Dr. Wilkins for the opportunity of taking of Mr. Theodore Pedersen - Date & Time Date: 07/14/18 Time: 06:30
[2018-07-14 07:58] LABS: HEMOGLOBIN 11.7 g/dL (14.0-18.0); MEAN CELL VOLUME 93.1 fl (80.0-105.0); MEAN CORPUSCULAR HEMOGLOBIN 29.8 pg (25.0-35.0); MEAN CORPUSCULAR HGB CONC 32.1 g/dl (31.0-37.0); MEAN PLATELET VOLUME 9.6 fl (7.0-11.0); RBC 3.92 10^6/uL (3.5-6.1); WHITE BLOOD COUNT 7.7 10^3/ul (4.5-11.0)
[2018-07-14 08:25] LABS: ALB/GLOB RATIO 0.8 (1.1-1.8); ALBUMIN 3.5 g/dL (3.0-4.8); CALCIUM 8.5 mg/dL (8.4-10.5)
[2018-07-14] MEDS ORDERED: Lidocaine 2% PF (10 ml) Amp ONE (08:37)
[2018-07-14] MEDS ORDERED: Bupivacaine 0.25% 50 ML INJ IJ ONE (08:37)
[2018-07-14] MEDS: Metoprolol Succinate 25 mg XL Tab PO SCH (08:58)
[2018-07-14] MEDS ORDERED: Midazolam 2 MG/2 ML VIAL ONE (10:01)
[2018-07-14] MEDS ORDERED: Oxycodone/Acetaminophen 5/325 mg Tab PO PRN ×2 (10:55)
--- NOTE | 2018-07-14 10:58 | PCM.SURG1 ---
<Andreina Samaniego - Last Filed: 07/14/18 10:59> Surgeon's Initial Post Op Note - Surgeon's Notes Surgeon: Dr. Reddy DPM Hotel Guest Service Agent: Dr. Andreina Samaniego DPM Type of Anesthesia: MAC Anesthesia Administered By: Dr. Burton Pre-Operative Diagnosis: Right 3rd digit gangrene Operative Findings: See dictation. I: None. M: 2-0 vicryl, 3-0 vicryl, 4-0 nylon Post-Operative Diagnosis: Same Operation Performed: Left 3rd digit amputation Specimen/Specimens Removed: Bone and soft tissue from left foot Estimated Blood Loss: EBL {In ML}: 5 Blood Products Given: N/A Drains Used: No Drains Post-Op Condition: Good Date of Surgery/Procedure: 07/14/18 Time of Surgery/Procedure: 11:00 <Loco Blakely - Last Filed: 07/14/18 15:26> Surgeon's Initial Post Op Note - Surgeon's Notes Pre-Operative Diagnosis: with osteomyelitis
--- NOTE | 2018-07-14 14:00 | RAD ---
Date of service: 07/14/2018 PROCEDURE: Right Foot Radiographs. HISTORY: s/p right 3rd toe amputation COMPARISON: MRI 07/10/2018 FINDINGS: BONES: There has been recent amputation of the 3rd toe. Previous amputations of the 1st toe and distal metatarsal and portions of the 4th toe JOINTS: Normal. SOFT TISSUES: Normal. OTHER FINDINGS: None. IMPRESSION: There has been recent amputation of the 3rd toe. Previous amputations of the 1st toe and distal metatarsal and portions of the 4th toe
--- NOTE | 2018-07-14 15:01 | CP.PCM.PN ---
Subjective - Date & Time of Evaluation Date of Evaluation: 07/14/18 Time of Evaluation: 15:01 - Subjective Subjective: Consult for Nephrology HPI: 63 yo M w/ pmh of ESRD, HTN, dm, blind that presented for gangrene of L foot. He is unable to give much history - he is fatigued. He has been following w/ podiatry in [place] who thinks he needs amputation. He denies fever/chills/n/v. He endorses reduced po intake. ros: a full detailed ros is negative except as in my hpi pt denies CP/SOB. his ROS is limited. pt usually not very communicative pmh: ESRD TTS,HTN,DM, Anemia, Secondary hyperpara, PAD and as below surg hx: includes R BKA famhx: no esrd in family sochx: lives [place] no active smoke etoh or ivdu all: nkda meds: as below pe: vs as below gen : nad sclera: anicteric op: poor dentition neck: supple cv: +s1+s2 no rub lungs cta abd: soft nt/nd / no organomegaly ext: dressing on L foot r bka neuro: follows commands no asterixis psych: flat affect. lack insight skin dressing on foot ulceration labs and imaging rviewd imp: ESRD on HD TTS schedule HTN/Diabetic kidney/Diabetic foot ulcer/ Anemia of renal disease/ Secondary hyperpara/acute osteomyelitis/left BKA s/p 3rd toe amputation plan: hd tomorrow as per tts schedule. nephrovite 1 tab/day dm per primary resume home bp meds. BP controlled foot ulcer/osteo management as per primary team/podiatry/ID dose abx for esrd hold phos binders for now as last phos low at 2.6 no need for HILTON currently as Hb 111.7 thanks for consult Please call if any Qs Dr Alfred Resendez [phone] Objective - Vital Signs/Intake and Output Vital Signs (last 24 hours): Temp Pulse Resp BP Pulse Ox 98 F 61 14 130/75 99 07/14/18 11:37 07/14/18 11:37 07/14/18 11:37 07/14/18 11:37 07/14/18 11:37 Intake and Output: 07/14/18 07/14/18 06:59 18:59 Intake Total 1000 Output Total 0 Balance 1000 - Medications Medications: Current Medications Acetaminophen (Tylenol 325mg Tab) 650 mg PO Q4H PRN PRN Reason: Pain, Mild (1-3) Amlodipine Besylate (Norvasc) 10 mg PO DAILY [facility] Last Admin: 07/13/18 15:05 Dose: 10 mg Atorvastatin Calcium (Lipitor) 80 mg PO DIN [facility] Last Admin: 07/13/18 18:12 Dose: 80 mg Ciprofloxacin (Ciloxan 0.3% Ophth Soln) 1 drop OU TID [facility] Last Admin: 07/13/18 18:13 Dose: 1 drop Cefepime HCl (Maxipime 1gm) 1 gm in 100 mls @ 100 mls/hr IVPB Q24H [facility]; Protocol Last Admin: 07/13/18 18:12 Dose: 100 mls/hr Insulin Human Regular (Humulin R Low) 0 units SC ACHS [facility]; Protocol Last Admin: 07/13/18 22:25 Dose: Not Given Levetiracetam (Keppra) 1,000 mg PO BID [facility] Last Admin: 07/13/18 18:12 Dose: 1,000 mg Metoprolol Succinate (Toprol Xl) 25 mg PO BRK [facility] Last Admin: 07/14/18 08:58 Dose: 25 mg Oxycodone/Acetaminophen (Percocet 5/325 Mg Tab) 1 tab PO Q4H PRN PRN Reason: Pain, moderate (4-7) Stop: 07/17/18 10:56 Oxycodone/Acetaminophen (Percocet 5/325 Mg Tab) 2 tab PO Q4H PRN PRN Reason: Pain, severe (8-10) Stop: 07/17/18 10:56 Vitamin B Complex/Vit C/Folic Acid (Nephro-Yocasta) 1 tab PO 0800 [facility] Last Admin: 07/13/18 15:04 Dose: 1 tab - Labs Labs: 07/14/18 07:15 07/14/18 07:15 PT 11.4 SECONDS (9.4-12.5) 07/09/18 16:40 INR 1.00 07/09/18 16:40 APTT 29.9 Seconds (25.1-36.5) 07/14/18 07:15
--- NOTE | 2018-07-14 15:21 | CP.PCM.PN ---
Subjective - Date & Time of Evaluation Date of Evaluation: 07/14/18 Time of Evaluation: 15:00 - Subjective Subjective: Infectious Disease Follow Up: July 14, 2018 63 yo AA male with PMHx of ESRD on HD, HTN, DM, CAD, dyslipidemia, anemia, hypothyroidism, seizure history, and blindness presenting with gangrene of the Left foot. Seen by Podiatry in [facility] at [facility] who felt amputation was needed (I believe Dr. Blakely was the bottle booth attendant following). Dr. Gan for renal and Dr. Holm for neurology. The patient himself gives very little information and often appears distant. I have seen the patient in [facility] in the past. I do know that the patient was being transitioned to fdc care at [facility]. Awaiting vascular evaluation and podiatry final recommendations regarding surgical options if any on the foot. MRI showing acute osteomyelitis of the 3rd toe of the left foot. Dr. Blakely planning for 3rd digit amputation of the left foot on Thursday07/14/2018. Taken the morning of 07/14/2018 for 3rd digit amputation of the left foot. Noted MSSA in one of the wound cultures. Patient with no current complaints. Objective - Vital Signs/Intake and Output Vital Signs (last 24 hours): Temp Pulse Resp BP Pulse Ox 98 F 61 14 130/75 99 07/14/18 11:37 07/14/18 11:37 07/14/18 11:37 07/14/18 11:37 07/14/18 11:37 Intake and Output: 07/14/18 07/14/18 06:59 18:59 Intake Total 1000 Output Total 0 Balance 1000 - Medications Medications: Current Medications Acetaminophen (Tylenol 325mg Tab) 650 mg PO Q4H PRN PRN Reason: Pain, Mild (1-3) Amlodipine Besylate (Norvasc) 10 mg PO DAILY [facility] Last Admin: 07/13/18 15:05 Dose: 10 mg Atorvastatin Calcium (Lipitor) 80 mg PO DIN [facility] Last Admin: 07/13/18 18:12 Dose: 80 mg Ciprofloxacin (Ciloxan 0.3% Ophth Soln) 1 drop OU TID [facility] Last Admin: 07/13/18 18:13 Dose: 1 drop Cefepime HCl (Maxipime 1gm) 1 gm in 100 mls @ 100 mls/hr IVPB Q24H [facility]; Protocol Last Admin: 07/13/18 18:12 Dose: 100 mls/hr Insulin Human Regular (Humulin R Low) 0 units SC ACHS [facility]; Protocol Last Admin: 07/13/18 22:25 Dose: Not Given Levetiracetam (Keppra) 1,000 mg PO BID [facility] Last Admin: 07/13/18 18:12 Dose: 1,000 mg Metoprolol Succinate (Toprol Xl) 25 mg PO BRK [facility] Last Admin: 07/14/18 08:58 Dose: 25 mg Oxycodone/Acetaminophen (Percocet 5/325 Mg Tab) 1 tab PO Q4H PRN PRN Reason: Pain, moderate (4-7) Stop: 07/17/18 10:56 Oxycodone/Acetaminophen (Percocet 5/325 Mg Tab) 2 tab PO Q4H PRN PRN Reason: Pain, severe (8-10) Stop: 07/17/18 10:56 Vitamin B Complex/Vit C/Folic Acid (Nephro-Yocasta) 1 tab PO 0800 [facility] Last Admin: 07/13/18 15:04 Dose: 1 tab - Labs Labs: 07/14/18 07:15 07/14/18 07:15 PT 11.4 SECONDS (9.4-12.5) 07/09/18 16:40 INR 1.00 07/09/18 16:40 APTT 29.9 Seconds (25.1-36.5) 07/14/18 07:15 - Constitutional Appears: Non-toxic, No Acute Distress, Chronically Ill - Head Exam Head Exam: ATRAUMATIC, NORMOCEPHALIC Additional comments: poor dentition - Eye Exam Eye Exam: absent: Scleral icterus Additional comments: legally blind. - ENT Exam ENT Exam: Mucous Membranes Moist, Normal External Ear Exam, TM's Normal B ilaterally - Neck Exam Neck Exam: Full ROM, Normal Inspection - Respiratory Exam Respiratory Exam: Clear to Ausculation Bilateral, NORMAL BREATHING PATTERN. absent: Rales, Rhonchi, Wheezes - Cardiovascular Exam Cardiovascular Exam: REGULAR RHYTHM, RRR, +S1, +S2 - GI/Abdominal Exam GI & Abdominal Exam: Soft, Normal Bowel Sounds. absent: Distended, Tenderness - Extremities Exam Extremities Exam: absent: Joint Swelling, Pedal Edema Additional comments: Right BKA. Left foot with gangrene... wrapped now. contracted extremities. - Neurological Exam Neurological Exam: Alert, Awake, CN II-XII Intact Additional comments: follows commands, generally weak. AAO x 2. - Psychiatric Exam Psychiatric exam: Normal Affect, Normal Mood - Skin Skin Exam: Intact, Normal Color Assessment and Plan - Assessment and Plan (Free Text) Assessment: 63 yo AA male with multiple medical issues presenting with gangrene of the left foot. I believe that is why he was sent [place] [facility] No notes at this time at [facility] on why the patient was transferred. Patient is a very poor historian. Start patient on Cefepime and Vancomycin renally dosed for now. Arrington cultures. Left foot third toe amputation by podiatry on 07/14/2018. WBC on 06/26/2018 was 10.2. Cutlures with MSSA. Can switch antibiotic to Ancef 2gm with HD. Given all the findings, I would consider 2 week course with Ancef in HD. Supportive care. PMHx includes but not limited to ESRD on HD, HTN, DM, CAD, dyslipidemia, anemia, hypothyroidism, seizure history, PVD, hypothyroidism, secondary hyperparath yroidism, seizure history, and blindness Thank you for allowing me to participate in the care of the patient, we will follow with you.
[2018-07-14] MEDS: Ciprofloxacin 0.3% OPTH SOLN OU SCH ×2 (16:47→19:38)
[2018-07-14] MEDS: Multivitamin Vitamin B Complex (Nephro-Vite) Tab PO SCH (16:47)
--- NOTE | 2018-07-14 16:52 | PN ---
DATE: 07/14/2018 PULMONARY PROGRESS NOTE REFERRING PHYSICIAN: Fatmata Wilkins MD. SUBJECTIVE: He is lying in the bed, head at 45 degrees, arousable. Blind. Waiting for the lunch. No nausea. No vomiting. No diarrhea. Has a right foot pain. OBJECTIVE: GENERAL: In no acute distress. VITAL SIGNS: Temperature is 98, heart rate is 61, respiratory rate is 14, blood pressure 130/75, pulse ox 99% on 3 L nasal cannula. HEENT: Moist mucous membrane. Crowded airway. NECK: Supple. No JVD. LUNGS: Have a fair airflow with rhonchi. HEART: S1 and S2. ABDOMEN: Soft and nontender. No organomegaly. EXTREMITIES: Has a left AKA with stumps looks okay. Right foot nonhealing ulcer. NEUROLOGICAL: Awake and alert. Follows simple command. MEDICATIONS: He is on Ancef 1 g IV TTS, ciprofloxacin eye drops, insulin coverage, Keppra 1000 mg twice a day, 80 mg daily, vitamin B is one tab daily, Norvasc 10 mg daily, Percocet 5/325 one tab every 4 hours p.r.n., also Percocet 5/325 two tablets every 4 hours for severe pain, Toprol-XL 25 mg daily, Tylenol p.r.n. basis. LABORATORY DATA: Shows hemoglobin 11.7, hematocrit 36.5, WBC 7.7, platelet is 273. PTT is 30. Sodium 133, potassium 4.9, chloride 98, bicarbonate 26, BUN 34, creatinine 5.2, glucose 79, calcium 8.5, phosphorus 3.6, magnesium 2.1, AST 30, ALT 35, alk phos is 106, albumin is 3.5. Microbiology: Foot culture has Staph aureus. IMPRESSION AND PLAN: Severe peripheral vascular disease requiring left above-knee amputation, nonhealing right foot ulcer, being followed by Infectious Diseases and Podiatry, on antibiotics. Renal failure, dialysis dependent; diabetes; coronary artery disease; hyperlipidemia; anemia; hypothyroid; seizure disorder; blind; may have a sleep apnea syndrome. Pulmonary point of view, doing okay. Continue keep head elevated at 45 degrees. Aspiration precaution. Pressure ulcer precaution. Continue antibiotics. Fall precaution. Thank you and we ill follow with you. Jeff Trinh MD [facility] # [id number]
[2018-07-15] MEDS: Insulin Reg-LOW-Coverage SC SCH ×3 (07:06→17:38)
--- NOTE | 2018-07-15 07:45 | CP.PCM.PN ---
Subjective - Date & Time of Evaluation Date of Evaluation: 07/15/18 Time of Evaluation: 06:40 - Subjective Subjective: Awake, but unable to answer questions, poor historian Reason for consultation and follow up: Cardiac evaluation for surgery of right third toe amputation, risk stratification, History of ESRD on dialysis (TTS), left AV graft. diabetes, hyperthyroidism, PVD, left BKA, legally blind, hypertension, hyperlipidemia, seizures, anemia, hypothyroidism,gastritis, GI bleeding, post angioplasty of right leg 07/2017,peripheral neuropathy,coronary artery disease. Seen and examined by me and Dr. Ashraf Objective - Vital Signs/Intake and Output Vital Signs (last 24 hours): Temp Pulse Resp BP Pulse Ox 98.5 F 64 18 124/74 100 07/14/18 22:00 07/14/18 22:00 07/14/18 22:00 07/14/18 22:00 07/14/18 22:00 - Medications Medications: Current Medications Acetaminophen (Tylenol 325mg Tab) 650 mg PO Q4H PRN PRN Reason: Pain, Mild (1-3) Last Admin: 07/14/18 16:49 Dose: 650 mg Amlodipine Besylate (Norvasc) 10 mg PO DAILY [facility] Last Admin: 07/14/18 16:48 Dose: 10 mg Atorvastatin Calcium (Lipitor) 80 mg PO DIN [facility] Last Admin: 07/14/18 16:48 Dose: 80 mg Ciprofloxacin (Ciloxan 0.3% Oph Soln) 1 drop OU TID [facility] Last Admin: 07/14/18 19:38 Dose: Not Given Cefazolin Sodium (Ancef 1gm In Ns) 1 gm in 100 mls @ 100 mls/hr IVPB TTS [facility]; Protocol Insulin Human Regular (Humulin R Low) 0 units SC ACHS [facility]; Protocol Last Admin: 07/15/18 07:06 Dose: Not Given Levetiracetam (Keppra) 1,000 mg PO BID [facility] Last Admin: 07/14/18 19:36 Dose: Not Given Metoprolol Succinate (Toprol Xl) 25 mg PO BRK [facility] Last Admin: 07/14/18 08:58 Dose: 25 mg Oxycodone/Acetaminophen (Percocet 5/325 Mg Tab) 1 tab PO Q4H PRN PRN Reason: Pain, moderate (4-7) Stop: 07/17/18 10:56 Oxycodone/Acetaminophen (Percocet 5/325 Mg Tab) 2 tab PO Q4H PRN PRN Reason: Pain, severe (8-10) Stop: 07/17/18 10:56 Vitamin B Complex/Vit C/Folic Acid (Nephro-Yocasta) 1 tab PO 0800 [facility] Last Admin: 07/14/18 16:47 Dose: 1 tab - Labs Labs: 07/14/18 07:15 07/14/18 07:15 PT 11.4 SECONDS (9.4-12.5) 07/09/18 16:40 INR 1.00 07/09/18 16:40 APTT 29.9 Seconds (25.1-36.5) 07/14/18 07:15 - Constitutional Appears: Non-toxic, No Acute Distress - Head Exam Head Exam: NORMAL INSPECTION, NORMOCEPHALIC - ENT Exam ENT Exam: Mucous Membranes Dry Additional comments: legally blind - Respiratory Exam Respiratory Exam: Decreased Breath Sounds, Clear to Ausculation Bilateral, NORMAL BREATHING PATTERN - Cardiovascular Exam Cardiovascular Exam: +S1, +S2 - GI/Abdominal Exam GI & Abdominal Exam: Soft, Normal Bowel Sounds - Exam Additional comments: ESRD, on hemodialysis, (TTS) - Extremities Exam Additional comments: left BKA, right foot with kerlex,no bleeding left AV graft positive bruit - Neurological Exam Neurological Exam: Alert, Awake - Psychiatric Exam Psychiatric exam: Flat Affect, Normal Affect - Skin Skin Exam: Dry, Normal Color, Warm Assessment and Plan - Assessment and Plan (Free Text) Assessment: A 63 year old male who was brought in to the ER from long-term due to right third toe gangrene. Patient is poor historian, chart reviewed. History of ESRD on dialysis (TTS), left AV graft. diabetes, hyperthyroidism, PVD, left BKA, legally blind, hypertension, hyperlipidemia, seizures, anemia, hypothyroidism,gastritis, GI bleeding, post angioplasty of right leg 07/2017,peripheral neuropathy,coronary artery disease.He is not in distress. Denies chest pain or shortness of breath. EKG -normal sinus rhthym,no ischemia. No evidence of heart failure, denies shortness of breath. Recent chest X ray showed-normal,no congestion. Moderate to high risk for surgery. No absolute contraindication for surgery.Cleared for surgery from cardiac standpoint. Status post right 3rd toe amputation yesterday POD#1. Clinically stable. Plan: Status post right 3rd toe amputation yesterday POD#1 No distress, denies chest pain or shortness of breath Blood pressure and Heart rate controlled On Lopressor 25 mg daily, Norvasc 10 mg daily,Keppra 1 gm BID, Cardiac status stable For hemodialysis today Continue current treatment Continue current medications Chart reviewed Discharge planning Will follow up Plan and treatment discussed with Dr. Ashraf
--- NOTE | 2018-07-15 09:11 | CON ---
DATE: 07/14/2018 SERVICE: Cardiology. REASON FOR CONSULTATION: Preop evaluation, risk stratification for amputation. This note is an addendum to the initial consult dictated by nurse practitioner. The patient seen for the chart review. End-stage renal disease, on dialysis; very poor historian. Giving the risk and benefit ratio for amputation, low risk procedure, [id number] risk for surgery. We will clear him as a [id number] risk. No absolute contraindication. No evidence of arrhythmia. No evidence of ischemia. No evidence of congestive heart failure. Suggest to continue perioperative beta-levi. Continue amlodipine, continue atorvastatin. We will follow. We will put order in physician and nurse communication. The patient is cleared to go with [id number] risk and no absolute contraindication. Thank you, Dr. Wilkins, for providing us the opportunity in taking care of the patient, Theodore Pedersen. Jeff Ashraf MD
--- NOTE | 2018-07-15 09:19 | PN ---
DATE: 07/14/2018 SUBJECTIVE: The patient is 63-year-old male. The patient was seen and examined on the bedside on 07/14/2018. Went for surgery. Blind. No nausea, vomiting or diarrhea. No hematuria or hematochezia. Still has right foot pain. PHYSICAL EXAMINATION VITAL SIGNS: Temperature 98, heart rate is 61, respiratory rate 14, blood pressure 130/75, pulse oximetry 99% on 3 liters nasal cannula. HEENT: Head is normocephalic and atraumatic. Eyes; PERRLA. Extraocular muscles intact. Conjunctivae clear. Nose patent. NECK: Supple. No carotid bruit, JVD, or thyromegaly. CHEST: Bilaterally symmetrical. HEART: S1 and S2 positive. LUNGS: Clear to auscultation. ABDOMEN: Soft. Bowel sounds are present. No organomegaly. EXTREMITIES: Left AKA with stump looking okay. Right foot non-healing ulcer, went for surgery. NEUROLOGIC: Awake and alert. Follows simple commands. MEDICATIONS: Ancef, ciprofloxacin eyedrops, insulin coverage, Keppra, vitamin B, Norvasc, Percocet, Toprol and Tylenol. LABORATORY DATA: Hemoglobin 11.7, hematocrit 36.5, white blood cells 7.7 and platelets 276. Sodium 133, potassium 4.9, calcium 8.9, AST 30, ALT 35. Foot cultures are staph aureus. ASSESSMENT AND PLAN: Mr. Theodore Pedersen is a 63-year-old male with multiple medical problems, bilateral blind, severe peripheral vascular disease, requiring left above-knee amputation, nonhealing right foot ulcer, right foot gangrene, being followed by Infectious Disease and Podiatry. The patient went for surgery today. Renal failure, on hemodialysis; diabetes mellitus; coronary artery disease; hypercholesterolemia; anemia; hypothyroidism; seizure disorder; sleep apnea syndrome. Aspiration precaution. Pressure ulcers precaution. Continue antibiotics. Fall precaution. X-ray of the foot is done, reviewed by me. Seen by call taker, Infectious Disease, carton stenciler and Podiatry. Repeat labs. We will follow up. Fatmata Wilkins MD
[2018-07-15] MEDS: Ciprofloxacin 0.3% OPTH SOLN OU SCH ×3 (09:51→21:03)
[2018-07-15] MEDS: Multivitamin Vitamin B Complex (Nephro-Vite) Tab PO SCH (09:52)
[2018-07-15] MEDS: Metoprolol Succinate 25 mg XL Tab PO SCH (09:52)
[2018-07-15] MEDS ORDERED: ceFAZolin 1 gm in NS 1 GM/100 ML BAG IVPB SCH (10:00)
[2018-07-15 10:36] LABS: MEAN CELL VOLUME 88.1 fl (80.0-105.0); MEAN CORPUSCULAR HEMOGLOBIN 29.9 pg (25.0-35.0); MEAN CORPUSCULAR HGB CONC 33.9 g/dl (31.0-37.0); MEAN PLATELET VOLUME 10.3 fl (7.0-11.0); RBC 2.68 10^6/uL (3.5-6.1); RED CELL DISTRIBUTION WIDTH 15.3 % (11.5-14.5); WHITE BLOOD COUNT 13.4 10^3/ul (4.5-11.0)
[2018-07-15 10:47] LABS: CALCIUM 8.1 mg/dL (8.4-10.5)
--- NOTE | 2018-07-15 13:22 | CP.PCM.PN ---
Subjective - Date & Time of Evaluation Date of Evaluation: 07/15/18 Time of Evaluation: 13:21 - Subjective Subjective: Consult for Nephrology HPI: 63 yo M w/ pmh of ESRD, HTN, dm, blind that presented for gangrene of L foot. He is unable to give much history - he is fatigued. He has been following w/ podiatry in [place] who thinks he needs amputation. He denies fever/chills/n/v. He endorses reduced po intake. ros: a full detailed ros is negative except as in my hpi pt denies CP/SOB. his ROS is limited. pt usually not very communicative pmh: ESRD TTS,HTN,DM, Anemia, Secondary hyperpara, PAD and as below surg hx: includes R BKA famhx: no esrd in family sochx: lives [place] no active smoke etoh or ivdu all: nkda meds: as below pe: vs as below. seen during HD gen : nad sclera: anicteric op: poor dentition neck: supple cv: +s1+s2 no rub lungs cta abd: soft nt/nd / no organomegaly ext: dressing on L foot r bka neuro: follows commands no asterixis psych: flat affect. lack insight skin dressing on foot ulceration labs and imaging rviewd imp: ESRD on HD TTS schedule HTN/Diabetic kidney/Diabetic foot ulcer/ Anemia of renal disease/ Secondary hyperpara/acute osteomyelitis/left BKA s/p 3rd toe amputation plan: hd today as per tts schedule. nephrovite 1 tab/day dm per primary resume home bp meds. BP controlled foot ulcer/osteo management as per primary team/podiatry/ID dose abx for esrd hold phos binders for now as last phos low at 2.6 started [place] as Hb 8 in post-op period. consider repeating it and transfuse as needed thanks for consult Please call if any Qs Dr Alfred Resendez [phone] Objective - Vital Signs/Intake and Output Vital Signs (last 24 hours): Temp Pulse Resp BP Pulse Ox 97.8 F 65 18 128/72 100 07/15/18 06:00 07/15/18 06:00 07/15/18 06:00 07/15/18 06:00 07/15/18 06:00 - Medications Medications: Current Medications Acetaminophen (Tylenol 325mg Tab) 650 mg PO Q4H PRN PRN Reason: Pain, Mild (1-3) Last Admin: 07/14/18 16:49 Dose: 650 mg Amlodipine Besylate (Norvasc) 10 mg PO DAILY [facility] Last Admin: 07/15/18 09:52 Dose: Not Given Atorvastatin Calcium (Lipitor) 80 mg PO DIN [facility] Last Admin: 07/14/18 16:48 Dose: 80 mg Ciprofloxacin (Ciloxan 0.3% Ophth Soln) 1 drop OU TID [facility] Last Admin: 07/15/18 09:51 Dose: Not Given Darbepoetin Rob (Aranesp) 60 mcg IVP ONCE ONE Stop: 07/17/18 07:01 Cefazolin Sodium (Ancef 1gm In Ns) 1 gm in 100 mls @ 100 mls/hr IVPB TTS [facility]; Protocol Insulin Human Regular (Humulin R Low) 0 units SC ACHS [facility]; Protocol Last Admin: 07/15/18 07:06 Dose: Not Given Levetiracetam (Keppra) 1,000 mg PO BID [facility] Last Admin: 07/15/18 09:52 Dose: Not Given Metoprolol Succinate (Toprol Xl) 25 mg PO BRK [facility] Last Admin: 07/15/18 09:52 Dose: Not Given Oxycodone/Acetaminophen (Percocet 5/325 Mg Tab) 1 tab PO Q4H PRN PRN Reason: Pain, moderate (4-7) Stop: 07/17/18 10:56 Oxycodone/Acetaminophen (Percocet 5/325 Mg Tab) 2 tab PO Q4H PRN PRN Reason: Pain, severe (8-10) Stop: 07/17/18 10:56 Vitamin B Complex/Vit C/Folic Acid (Nephro-Yocasta) 1 tab PO 0800 [facility] Last Admin: 07/15/18 09:52 Dose: Not Given - Labs Labs: 07/15/18 10:00 07/15/18 10:00 PT 11.4 SECONDS (9.4-12.5) 07/09/18 16:40 INR 1.00 07/09/18 16:40 APTT 29.9 Seconds (25.1-36.5) 07/14/18 07:15
--- NOTE | 2018-07-15 13:29 | CP.PCM.PN ---
Subjective - Date & Time of Evaluation Date of Evaluation: 07/15/18 Time of Evaluation: 13:00 - Subjective Subjective: Infectious Disease Follow Up: July 15, 2018 63 yo AA male with PMHx of ESRD on HD, HTN, DM, CAD, dyslipidemia, anemia, hypothyroidism, seizure history, and blindness presenting with gangrene of the Left foot. Seen by Podiatry in [facility] at [facility] who felt amputation was needed (I believe Dr. Blakely was the repairer cylinder heads following). Dr. Gan for renal and Dr. Holm for neurology. The patient himself gives very little information and often appears distant. I have seen the patient in [facility] in the past. I do know that the patient was being transitioned to correction care at [facility]. Awaiting vascular evaluation and podiatry final recommendations regarding surgical options if any on the foot. MRI showing acute osteomyelitis of the 3rd toe of the left foot. Dr. Blakely performed 3rd digit amputation of the left foot on Thursday07/14/2018. Noted MSSA in one of the wound cultures. Antibiotics switched to Ancef. This can be given with HD. Patient with no current complaints. Objective - Vital Signs/Intake and Output Vital Signs (last 24 hours): Temp Pulse Resp BP Pulse Ox 97.8 F 65 18 128/72 100 07/15/18 06:00 07/15/18 06:00 07/15/18 06:00 07/15/18 06:00 07/15/18 06:00 - Medications Medications: Current Medications Acetaminophen (Tylenol 325mg Tab) 650 mg PO Q4H PRN PRN Reason: Pain, Mild (1-3) Last Admin: 07/14/18 16:49 Dose: 650 mg Amlodipine Besylate (Norvasc) 10 mg PO DAILY [facility] Last Admin: 07/15/18 09:52 Dose: Not Given Atorvastatin Calcium (Lipitor) 80 mg PO DIN [facility] Last Admin: 07/14/18 16:48 Dose: 80 mg Ciprofloxacin (Ciloxan 0.3% Ophth Soln) 1 drop OU TID [facility] Last Admin: 07/15/18 09:51 Dose: Not Given Cefazolin Sodium (Ancef 1gm In Ns) 1 gm in 100 mls @ 100 mls/hr IVPB TTS [facility]; Protocol Insulin Human Regular (Humulin R Low) 0 units SC ACHS [facility]; Protocol Last Admin: 07/15/18 07:06 Dose: Not Given Levetiracetam (Keppra) 1,000 mg PO BID [facility] Last Admin: 07/15/18 09:52 Dose: Not Given Metoprolol Succinate (Toprol Xl) 25 mg PO BRK [facility] Last Admin: 07/15/18 09:52 Dose: Not Given Oxycodone/Acetaminophen (Percocet 5/325 Mg Tab) 1 tab PO Q4H PRN PRN Reason: Pain, moderate (4-7) Stop: 07/17/18 10:56 Oxycodone/Acetaminophen (Percocet 5/325 Mg Tab) 2 tab PO Q4H PRN PRN Reason: Pain, severe (8-10) Stop: 07/17/18 10:56 Vitamin B Complex/Vit C/Folic Acid (Nephro-Yocasta) 1 tab PO 0800 [facility] Last Admin: 07/15/18 09:52 Dose: Not Given - Labs Labs: 07/15/18 10:00 07/15/18 10:00 PT 11.4 SECONDS (9.4-12.5) 07/09/18 16:40 INR 1.00 07/09/18 16:40 APTT 29.9 Seconds (25.1-36.5) 07/14/18 07:15 - Head Exam Head Exam: ATRAUMATIC, NORMOCEPHALIC Additional comments: poor dentition. - Eye Exam Eye Exam: Scleral icterus Additional comments: legally blind. - ENT Exam ENT Exam: Mucous Membranes Moist, Normal External Ear Exam, TM's Normal Bilaterally - Neck Exam Neck Exam: Full ROM, Normal Inspection - Respiratory Exam Respiratory Exam: Clear to Ausculation Bilateral, NORMAL BREATHING PATTERN. absent: Rales, Rhonchi, Wheezes - Cardiovascular Exam Cardiovascular Exam: REGULAR RHYTHM, RRR, +S1, +S2 - GI/Abdominal Exam GI & Abdominal Exam: Soft, Normal Bowel Sounds. absent: Distended, Tenderness - Extremities Exam Extremities Exam: absent: Joint Swelling, Pedal Edema Additional comments: Right BKA. Left foot with gangrene... wrapped now. contracted extremities. - Neurological Exam Neurological Exam: Alert, Awake, CN II-XII Intact Additional comments: follows commands, generally weak. AAO x 2. - Psychiatric Exam Psychiatric exam: Normal Affect, Normal Mood - Skin Skin Exam: Intact, Normal Color Assessment and Plan - Assessment and Plan (Free Text) Assessment: 63 yo AA male with multiple medical issues presenting with gangrene of the left foot. I believe that is why he was sent to [facility]. No notes at this time at [facility] at [facility] on why the patient was transferred. Patient is a very poor historian. Start patient on Cefepime and Vancomycin renally dosed for now. Arrington cultures. Left foot third toe amputation by podiatry on 07/14/2018. WBC on 06/26/2018 was 10.2. Cultures with MSSA. Switched antibiotic to Ancef 2gm with HD. Given all the findings, I would consider 2 week course with Ancef in HD. Supportive care. No new complaints. Local wound care. PMHx includes but not limited to ESRD on HD, HTN, DM, CAD, dyslipidemia, anemia, hypothyroidism, seizure history, PVD, hypothyroidism, secondary hyperparathyroidism, seizure history, and blindness Thank you for allowing me to participate in the care of the patient, we will follow with you.
--- NOTE | 2018-07-15 17:46 | PN ---
DATE: 07/15/2018 REASON FOR CONSULTATION AND FOLLOWUP: Preop evaluation, postop followup,status post toe for amputation, right third toe; history of COPD; status post left BKA, admitted with gangrenous right toe. Cardiology consult was called for preop evaluation, risk stratification, end-stage renal disease, on dialysis. Very poor historian. The patient seen on dialysis. Not in apparent distress. RECOMMENDATIONS: Continue current treatment including antibiotic, atorvastatin, amlodipine, metoprolol, acetaminophen. We will put back baby aspirin 81 mg daily. Thank you, Dr. Wilkins, for providing us the opportunity in taking care of the patient, Theodore Pedersen. Jeff Ashraf MD
[2018-07-15 21:46] VITALS: RESP 18
--- NOTE | 2018-07-15 23:01 | PN ---
DATE: 07/15/2018 REFERRING PHYSICIAN: Fatmata Wilkins MD SUBJECTIVE: He is lying in the bed, being fed by the nursing staff, has eyes closed. No nausea. No diarrhea, leg pain or leg swelling. Does have a right leg nonhealing ulcer. Left leg is BKA. OBJECTIVE: GENERAL: In no acute distress. VITAL SIGNS: Temperature is 98, heart rate 72, respiratory rate is 20, blood pressure 127/78, pulse ox 100% percent on room air. HEENT: Moist mucous membrane. Crowded airway. NECK: Supple. No JVD. LUNGS: Have a fair airflow with rhonchi. HEART: S1 and S2. ABDOMEN: Soft, nontender, no organomegaly. EXTREMITY: Has a right foot protective boots with a nonhealing ulcer. Left has a BKA. NEUROLOGIC: Sleepy, arousable. MEDICATIONS: He is on Ancef 2 g IV, is 60 mg daily, aspirin 81 mg daily, Cipro eye drops, insulin coverage, Keppra 1000 mg twice a day, Lipitor 80 mg daily, vitamin B complex daily, Norvasc 10 mg daily, Percocet 325 1 tablet every 4 hour p.r.n., Toprol XL 25 mg daily, Tylenol p.r.n. basis. LABORATORY DATA: Shows hemoglobin 8, hematocrit 23.6, WBC 13.4, platelet count is 219. PTT is 30. Sodium 136, potassium 3.3, chloride 101, bicarbonate is 25, BUN 45, creatinine 6.3, glucose 140, calcium is 8.1. IMPRESSION AND PLAN: Severe peripheral vascular disease with nonhealing leg ulcer, history of left BKA. Renal failure, dialysis dependent diabetes, coronary artery disease, hyperlipidemia, anemia, hypothyroid, seizure disorder, may have sleep apnea syndrome. Pulmonary point of view doing okay. Keep head 45 degrees. Aspiration precaution, avoid sedation. Pressure ulcer precaution. Antibiotics as per Infectious Disease. Gastric and deep vein thrombosis prophylaxis. Thank you and we will follow with you. Jeff Trinh MD
--- NOTE | 2018-07-16 04:56 | PN ---
DATE: 07/15/2018 SUBJECTIVE: Patient is a 63-year-old male. Patient was seen and examined on the bedside on 07/15/2018, looking comfortable, eyes closed, sleepy, arousable. Does have right leg non-healing ulcer. Left leg is BKA. No fever. No chills. No hematuria or hematochezia. No headache or dizziness. Patient is a very poor historian. PHYSICAL EXAMINATION: VITAL SIGNS: Temperature 98, heart rate 72, respiratory rate 20, blood pressure 127/78, pulse oximetry 100% on room air. HEENT: Head: Normocephalic and atraumatic. Eyes: PERRLA. Extraocular muscles intact. Conjunctivae clear. Nose patent. Mucous membranes moist. NECK: Supple. No carotid bruit. No JVD or thyromegaly. CHEST: Bilaterally symmetrical. HEART: S1 and S2 positive. LUNGS: Clear to auscultation. ABDOMEN: Soft. Bowel sounds present. No organomegaly. EXTREMITIES: No edema. No cyanosis. Patient has right foot protective boots with non-healing ulcer. Left has BKA. NEUROLOGIC: Sleepy, arousable. MEDICATIONS: Aspirin, Cipro, Keppra, Lipitor, vitamin B complex, Norvasc, Percocet, Toprol, Tylenol. LABORATORY DATA: Hemoglobin 8, hematocrit 23.6, white blood cells 13.4, platelets 129. Sodium 136, potassium 3.3, BUN 45, creatinine 6.3. ASSESSMENT AND PLAN: Mr. Theodore Pedersen is a 63-year-old male with chronic kidney disease; peripheral vascular disease with non-healing foot ulcer; history of left below-knee amputation; history of foot debridement; renal failure, dialysis dependent; diabetes mellitus; diabetic nephropathy; diabetic retinopathy; diabetic neuropathy; coronary artery disease; hypercholesterolemia; anemia; hypothyroidism; seizure disorder; sleep apnea syndrome. Aspiration precaution, avoid sedatives. Gastrointestinal and deep venous thrombosis prophylaxes. Repeat labs. We will follow up. Fatmata Wilkins MD
[2018-07-16] MEDS: Insulin Reg-LOW-Coverage SC SCH ×3 (06:46→18:28)
--- NOTE | 2018-07-16 06:49 | CP.PCM.PN ---
Subjective - Date & Time of Evaluation Date of Evaluation: 07/16/18 Time of Evaluation: 06:25 - Subjective Subjective: Awake, no distress, comfortable Reason for consultation and follow up: Cardiac evaluation for surgery of right third toe amputation, risk stratification, History of ESRD on dialysis (TTS), left AV graft. diabetes, hyperthyroidism, PVD, left BKA, legally blind, hypertension, hyperlipidemia, seizures, anemia, hypothyroidism,gastritis, GI bleeding, post angioplasty of right leg 07/2017,peripheral neuropathy,coronary artery disease. Seen and examined by me and Dr. Ashraf Objective - Vital Signs/Intake and Output Vital Signs (last 24 hours): Temp Pulse Resp BP Pulse Ox 97.5 F L 74 18 116/69 100 07/15/18 21:45 07/15/18 21:45 07/15/18 21:45 07/15/18 21:45 07/15/18 21:45 - Medications Medications: Current Medications Acetaminophen (Tylenol 325mg Tab) 650 mg PO Q4H PRN PRN Reason: Pain, Mild (1-3) Last Admin: 07/14/18 16:49 Dose: 650 mg Amlodipine Besylate (Norvasc) [address] [facility] Last Admin: 07/15/18 09:52 Dose: Not Given Aspirin (Aspirin Chewable) [address] [facility] Atorvastatin Calcium (Lipitor) [address] [facility] Last Admin: 07/15/18 17:41 Dose: 80 mg Ciprofloxacin (Ciloxan 0.3% [facility] Sol) [address] [facility] Last Admin: 07/15/18 21:03 Dose: 1 drop Darbepoetin Rob (Aranesp) 60 mcg IVP ONCE ONE Stop: 07/17/18 07:01 Heparin Sodium (Porcine) (Heparin) 5,[address] [facility]; Protocol Last Admin: 07/15/18 21:03 Dose: 5,000 units Cefazolin Sodium/Dextrose (Ancef Iv 2 Gm Duplex) 2 gm in 50 mls @ 50 mls/hr IVPB TTS [facility]; Protocol Insulin Human Regular (Humulin R Low) [address] [facility]; Protocol Last Admin: 07/16/18 06:46 Dose: Not Given Levetiracetam (Keppra) 1,[address] [facility] Last Admin: 07/15/18 17:38 Dose: 1,000 mg Metoprolol Succinate (Toprol Xl) [address] [facility] Last Admin: 07/15/18 09:52 Dose: Not Given Oxycodone/Acetaminophen (Percocet 5/325 Mg Tab) 1 tab PO Q4H PRN PRN Reason: Pain, moderate (4-7) Stop: 07/17/18 10:56 Oxycodone/Acetaminophen (Percocet 5/325 Mg Tab) 2 tab PO Q4H PRN PRN Reason: Pain, severe (8-10) Stop: 07/17/18 10:56 Vitamin B Complex/Vit C/Folic Acid (Nephro-Yocasta) [address] [facility] Last Admin: 07/15/18 09:52 Dose: Not Given - Labs Labs: 07/15/18 10:00 07/15/18 10:00 PT 11.4 SECONDS (9.4-12.5) 07/09/18 16:40 INR 1.00 07/09/18 16:40 APTT 29.9 Seconds (25.1-36.5) 07/14/18 07:15 - Constitutional Appears: Non-toxic, No Acute Distress - Head Exam Head Exam: NORMAL INSPECTION, NORMOCEPHALIC - ENT Exam ENT Exam: Mucous Membranes Dry - Respiratory Exam Respiratory Exam: Decreased Breath Sounds, Clear to Ausculation Bilateral, NORMAL BREATHING PATTERN - Cardiovascular Exam Cardiovascular Exam: +S1, +S2 - GI/Abdominal Exam GI & Abdominal Exam: Soft, Normal Bowel Sounds - Exam Additional comments: ESRD Hemodialysis 3x a week - Extremities Exam Additional comments: left BKA, right foot wrapped with kerlex. Left AV graft, positive bruit - Neurological Exam Neurological Exam: Alert, Awake - Psychiatric Exam Psychiatric exam: Normal Affect, Normal Mood - Skin Skin Exam: Dry, Normal Color, Warm Assessment and Plan - Assessment and Plan (Free Text) Assessment: A 63 year old male who was brought in to the ER from snf due to right third toe gangrene. Patient is poor historian, chart reviewed. History of ESRD on dialysis (TTS), left AV graft. diabetes, hyperthyroidism, PVD, left BKA, legally blind, hypertension, hyperlipidemia, seizures, anemia, hypothyroidism,gastritis, GI bleeding, post angioplasty of right leg 07/2017,peripheral neuropathy,coronary artery disease.He is not in distress. Denies chest pain or shortness of breath. EKG -normal sinus rhthym,no ischemia. No evidence of heart failure, denies shortness of breath. Recent chest X ray showed-normal,no congestion. Moderate to high risk for surgery. No absolute contraindication for surgery.Cleared for surgery from cardiac standpoint. Status post right 3rd toe amputation yesterday POD#2. Clinically stable. Plan: Blood pressure and Heart rate controlled Cardiac status stable Status post right 3rd toe amputation yesterday POD#2 No distress, denies chest pain or shortness of breath Blood pressure and Heart rate controlled On Lopressor 25 mg daily, Norvasc 10 mg daily,Keppra 1 gm BID,ASA 81 mg daily Lopressor 25 mg daily. Had hemodialysis yesterday Continue current treatment Continue current medications Chart reviewed Discharge planning Will follow up Plan and treatment discussed with Dr. Ashraf
[2018-07-16] MEDS: Metoprolol Succinate 25 mg XL Tab PO SCH (11:37)
[2018-07-16] MEDS: Ciprofloxacin 0.3% OPTH SOLN OU SCH ×3 (11:39→18:24)
[2018-07-16] MEDS: Multivitamin Vitamin B Complex (Nephro-Vite) Tab PO SCH (11:40)
--- NOTE | 2018-07-16 13:08 | CP.PCM.PN ---
<Andreina Samaniego - Last Filed: 07/16/18 13:12> Subjective - Date & Time of Evaluation Date of Evaluation: 07/16/18 Time of Evaluation: 13:00 - Subjective Subjective: Podiatry Progress Note for Dr. Blakely: 63 yo male patient, seen and evaluated s/p 2 days R 3rd digit amputation (DOS: 07/14). Patient resting comfortably in bed- flat affect. Does not report any pain to the surgical area. Dressing clean, dry, intact. Unable to obtain full history. Objective - Vital Signs/Intake and Output Vital Signs (last 24 hours): Temp Pulse Resp BP Pulse Ox 98 F 77 18 112/72 100 07/16/18 06:00 07/16/18 06:00 07/16/18 06:00 07/16/18 11:40 07/16/18 06:00 - Medications Medications: Current Medications Acetaminophen (Tylenol 325mg Tab) 650 mg PO Q4H PRN PRN Reason: Pain, Mild (1-3) Last Admin: 07/14/18 16:49 Dose: 650 mg Amlodipine Besylate (Norvasc) 10 mg PO DAILY [facility] Last Admin: 07/16/18 11:40 Dose: 10 mg Aspirin (Aspirin Chewable) 81 mg PO DAILY [facility] Last Admin: 07/16/18 11:37 Dose: 81 mg Atorvastatin Calcium (Lipitor) 80 mg PO DIN [facility] Last Admin: 07/15/18 17:41 Dose: 80 mg Ciprofloxacin (Ciloxan 0.3% Ophth Soln) 1 drop OU TID [facility] Last Admin: 07/16/18 11:39 Dose: 1 drop Darbepoetin Rob (Aranesp) 60 mcg IVP ONCE ONE Stop: 07/17/18 07:01 Heparin Sodium (Porcine) (Heparin) 5,000 units SC Q12 [facility]; Protocol Last Admin: 07/16/18 11:36 Dose: 5,000 units Cefazolin Sodium/Dextrose (Ancef Iv 2 Gm Duplex) 2 gm in 50 mls @ 50 mls/hr IVPB TTS [facility]; Protocol Insulin Human Regular (Humulin R Low) 0 units SC ACHS [facility]; Protocol Last Admin: 07/16/18 06:46 Dose: Not Given Levetiracetam (Keppra) 1,000 mg PO BID [facility] Last Admin: 07/16/18 11:36 Dose: 1,000 mg Metoprolol Succinate (Toprol Xl) 25 mg PO BRK [facility] Last Admin: 07/16/18 11:37 Dose: 25 mg Oxycodone/Acetaminophen (Percocet 5/325 Mg Tab) 1 tab PO Q4H PRN PRN Reason: Pain, moderate (4-7) Stop: 07/17/18 10:56 Oxycodone/Acetaminophen (Percocet 5/325 Mg Tab) 2 tab PO Q4H PRN PRN Reason: Pain, severe (8-10) Stop: 07/17/18 10:56 Vitamin B Complex/Vit C/Folic Acid (Nephro-Yocasta) 1 tab PO 0800 [facility] Last Admin: 07/16/18 11:40 Dose: 1 tab - Labs Labs: 07/15/18 10:00 07/15/18 10:00 PT 11.4 SECONDS (9.4-12.5) 07/09/18 16:40 INR 1.00 07/09/18 16:40 APTT 29.9 Seconds (25.1-36.5) 07/14/18 07:15 - Constitutional Appears: Non-toxic, No Acute Distress - Extremities Exam Additional comments: RLE focused physical exam Vasc: DP and PT pulses nonpalpable, CFT delayed to remaining digits, Temperature gradient cool to cool. +2 edema noted to 3rd digit. Neuro: Gross and protective sensation diminished Derm: Thin, friable skin present. R 3rd digit amputation: surgical site intact, sutures well coapted, no evidence of dehiscence, no purulence, no drainage, no erythema present. No clinical signs of infection. Ortho: Hallux, partial 4th digit amputations, 3rd digit amputation noted; L BKA appreciated - Neurological Exam Neurological Exam: Awake - Psychiatric Exam Psychiatric exam: Flat Affect Assessment and Plan - Assessment and Plan (Free Text) Assessment: 63 yo male patient, seen and evaluated s/p 2 days R 3rd digit amputation (DOS: 07/14). Plan: Patient seen and evaluated at bedside with Dr. Blakely RLE MRI (07/10): bony destruction and marrow edema in the 3rd toe consistent with acute OM R intra-op wound culture (07/14): staph aureus - IV abx per ID reccs (Dr. Schofield): Switched antibiotic to Ancef 2gm with HD, will consider 2 week course with Ancef in HD. R post-op x-rays (07/14): Recent amputation of 3rd toe. Previous amputations of 1st toe, distal metatarsal, and portions of the 4th toe. Continue local wound care: betadine, DSD Multi-podus boot ordered; to be worn at all times while in bed Podiatry will continue to follow while in house <Loco Blakely - Last Filed: 07/16/18 17:10> Objective - Vital Signs/Intake and Output Vital Signs (last 24 hours): Temp Pulse Resp BP Pulse Ox 98.3 F 72 18 99/57 L 98 07/16/18 14:00 07/16/18 14:00 07/16/18 14:00 07/16/18 14:00 07/16/18 14:00 Intake and Output: 07/16/18 07/16/18 06:59 18:59 Intake Total 500 Balance 500 - Medications Medications: Current Medications Acetaminophen (Tylenol 325mg Tab) 650 mg PO Q4H PRN PRN Reason: Pain, Mild (1-3) Last Admin: 07/14/18 16:49 Dose: 650 mg Amlodipine Besylate (Norvasc) 10 mg PO DAILY [facility] Last Admin: 07/16/18 11:40 Dose: 10 mg Aspirin (Aspirin Chewable) 81 mg PO DAILY [facility] Last Admin: 07/16/18 11:37 Dose: 81 mg Atorvastatin Calcium (Lipitor) 80 mg PO DIN [facility] Last Admin: 07/15/18 17:41 Dose: 80 mg Ciprofloxacin (Ciloxan 0.3% [facility]) 1 drop OU TID [facility] Last Admin: 07/16/18 13:20 Dose: 1 drop Darbepoetin Rob (Aranesp) 60 mcg IVP ONCE ONE Stop: 07/17/18 07:01 Heparin Sodium (Porcine) (Heparin) 5,000 units SC Q12 [facility]; Protocol Last Admin: 07/16/18 11:36 Dose: 5,000 units Cefazolin Sodium/Dextrose (Ancef Iv 2 Gm Duplex) 2 gm in 50 mls @ 50 mls/hr IVPB TTS [facility]; Protocol Stop: 07/31/18 10:00 Insulin Human Regular (Humulin R Low) 0 units SC ACHS [facility]; Protocol Last Admin: 07/16/18 11:35 Dose: Not Given Levetiracetam (Keppra) 1,000 mg PO BID [facility] Last Admin: 07/16/18 11:36 Dose: 1,000 mg Metoprolol Succinate (Toprol Xl) 25 mg PO BRK [facility] Last Admin: 07/16/18 11:37 Dose: 25 mg Oxycodone/Acetaminophen (Percocet 5/325 Mg Tab) 1 tab PO Q4H PRN PRN Reason: Pain, moderate (4-7) Stop: 07/17/18 10:56 Oxycodone/Acetaminophen (Percocet 5/325 Mg Tab) 2 tab PO Q4H PRN PRN Reason: Pain, severe (8-10) Stop: 07/17/18 10:56 Vitamin B Complex/Vit C/Folic Acid (Nephro-Yocasta) 1 tab PO 0800 [facility] Last Admin: 07/16/18 11:40 Dose: 1 tab - Labs Labs: 07/15/18 10:00 07/15/18 10:00 PT 11.4 SECONDS (9.4-12.5) 07/09/18 16:40 INR 1.00 07/09/18 16:40 APTT 29.9 Seconds (25.1-36.5) 07/14/18 07:15 Attending/Attestation - Attestation I have personally seen and examined this patient.: Yes I have fully participated in the care of the patient.: Yes I have reviewed all pertinent clinical information, including history, physical exam and plan: Yes
--- NOTE | 2018-07-16 14:35 | CP.PCM.PN ---
Subjective - Date & Time of Evaluation Date of Evaluation: 07/16/18 Time of Evaluation: 14:34 - Subjective Subjective: Consult for Nephrology HPI: 63 yo M w/ pmh of ESRD, HTN, dm, blind that presented for gangrene of L foot. He is unable to give much history - he is fatigued. He has been following w/ podiatry in [place] who thinks he needs amputation. He denies fever/chills/n/v. He endorses reduced po intake. ros: a full detailed ros is negative except as in my hpi pt denies CP/SOB. his ROS is limited. pt usually not very communicative pmh: ESRD TTS,HTN,DM, Anemia, Secondary hyperpara, PAD and as below surg hx: includes R BKA famhx: no esrd in family sochx: lives [place] no active smoke etoh or ivdu all: nkda meds: as below pe: vs as below. seen during HD gen : nad sclera: anicteric op: poor dentition neck: supple cv: +s1+s2 no rub lungs cta abd: soft nt/nd / no organomegaly ext: dressing on L foot r bka neuro: follows commands no asterixis psych: flat affect. lack insight skin dressing on foot ulceration labs and imaging rviewd imp: ESRD on HD TTS schedule HTN/Diabetic kidney/Diabetic foot ulcer/ Anemia of renal disease/ Secondary hyperpara/acute osteomyelitis/left BKA s/p 3rd toe amputation plan: hd tomorrow as per tts schedule. nephrovite 1 tab/day dm per primary resume home bp meds. BP controlled foot ulcer/osteo management as per primary team/podiatry/ID dose abx for esrd hold phos binders for now as last phos low at 2.6 started HILTON as Hb 8 in post-op period. consider repeating it and transfuse as needed thanks for consult Please call if any Qs Dr Alfred Resendez [phone] Objective - Vital Signs/Intake and Output Vital Signs (last 24 hours): Temp Pulse Resp BP Pulse Ox 98 F 77 18 112/72 100 07/16/18 06:00 07/16/18 06:00 07/16/18 06:00 07/16/18 11:40 07/16/18 06:00 Intake and Output: 07/16/18 07/16/18 06:59 18:59 Intake Total 500 Balance 500 - Medications Medications: Current Medications Acetaminophen (Tylenol 325mg Tab) 650 mg PO Q4H PRN PRN Reason: Pain, Mild (1-3) Last Admin: 07/14/18 16:49 Dose: 650 mg Amlodipine Besylate (Norvasc) 10 mg PO DAILY [facility] Last Admin: 07/16/18 11:40 Dose: 10 mg Aspirin (Aspirin Chewable) 81 mg PO DAILY [facility] Last Admin: 07/16/18 11:37 Dose: 81 mg Atorvastatin Calcium (Lipitor) 80 mg PO DIN [facility] Last Admin: 07/15/18 17:41 Dose: 80 mg Ciprofloxacin (Ciloxan 0.3% [facility] Soln) 1 drop OU TID [facility] Last Admin: 07/16/18 13:20 Dose: 1 drop Darbepoetin Rob (Aranesp) 60 mcg IVP ONCE ONE Stop: 07/17/18 07:01 Heparin Sodium (Porcine) (Heparin) 5,000 units SC Q12 [facility]; Protocol Last Admin: 07/16/18 11:36 Dose: 5,000 units Cefazolin Sodium/Dextrose (Ancef Iv 2 Gm Duplex) 2 gm in 50 mls @ 50 mls/hr IVPB TTS [facility]; Protocol Stop: 07/31/18 10:00 Insulin Human Regular (Humulin R Low) 0 units SC ACHS [facility]; Protocol Last Admin: 07/16/18 11:35 Dose: Not Given Levetiracetam (Keppra) 1,000 mg PO BID [facility] Last Admin: 07/16/18 11:36 Dose: 1,000 mg Metoprolol Succinate (Toprol Xl) 25 mg PO BRK [facility] Last Admin: 07/16/18 11:37 Dose: 25 mg Oxycodone/Acetaminophen (Percocet 5/325 Mg Tab) 1 tab PO Q4H PRN PRN Reason: Pain, moderate (4-7) Stop: 07/17/18 10:56 Oxycodone/Acetaminophen (Percocet 5/325 Mg Tab) 2 tab PO Q4H PRN PRN Reason: Pain, severe (8-10) Stop: 07/17/18 10:56 Vitamin B Complex/Vit C/Folic Acid (Nephro-Yocasta) 1 tab PO 0800 [facility] Last Admin: 07/16/18 11:40 Dose: 1 tab - Labs Labs: 07/15/18 10:00 07/15/18 10:00 PT 11.4 SECONDS (9.4-12.5) 07/09/18 16:40 INR 1.00 07/09/18 16:40 APTT 29.9 Seconds (25.1-36.5) 07/14/18 07:15
--- NOTE | 2018-07-16 15:09 | PN ---
DATE: 07/16/2018 REASON FOR THE CONSULTATION AND FOLLOWUP: Preop evaluation and followup, status post right toe amputation. The patient is stable postop, not in any apparent distress, lying flat on the bed. He is status post angioplasty of the lower extremity, status post amputation of right third toe. Continue dialysis. Continue Lopressor perioperatively. Continue Norvasc. We will follow with you. CVS status is stable. History of left BKA, severe PAD. Thank you Dr. Wilkins providing us the opportunity in taking care of the patient, Theodore Pedersen. Jeff Ashraf MD
[2018-07-16 15:17] VITALS: BP 99/57; PULSE 72; TEMP 98.3; O2SAT 98
--- NOTE | 2018-07-16 15:28 | CP.PCM.PN ---
Subjective - Date & Time of Evaluation Date of Evaluation: 07/16/18 Time of Evaluation: 14:00 - Subjective Subjective: Infectious Disease Follow Up: July 16, 2018 63 yo AA male with PMHx of ESRD on HD, HTN, DM, CAD, dyslipidemia, anemia, hypothyroidism, seizure history, and blindness presenting with gangrene of the Left foot. Seen by Podiatry in [facility] at [facility] who felt amputation was needed (I believe Dr. Blakely was the community outreach coordinator following). Dr. Gan for renal and Dr. Holm for neurology. The patient himself gives very little information and often appears distant. I have seen the patient in [facility] in the past. I do know that the patient was being transitioned to [facility] care at [facility]. Awaiting vascular evaluation and podiatry final recommendations regarding surgical options if any on the foot. MRI showing acute osteomyelitis of the 3rd toe of the left foot. Dr. Blakely performed 3rd digit amputation of the left foot on Thursday07/14/2018. Noted MSSA in one of the wound cultures. Antibiotics switched to Ancef. This can be given with HD. The patient can receive two week course of antibiotics. Patient with no current complaints. Objective - Vital Signs/Intake and Output Vital Signs (last 24 hours): Temp Pulse Resp BP Pulse Ox 98.3 F 72 18 99/57 L 98 07/16/18 14:00 07/16/18 14:00 07/16/18 14:00 07/16/18 14:00 07/16/18 14:00 Intake and Output: 07/16/18 07/16/18 06:59 18:59 Intake Total 500 Balance 500 - Medications Medications: Current Medications Acetaminophen (Tylenol 325mg Tab) 650 mg PO Q4H PRN PRN Reason: Pain, Mild (1-3) Last Admin: 07/14/18 16:49 Dose: 650 mg Amlodipine Besylate (Norvasc) 10 mg PO DAILY [facility] Last Admin: 07/16/18 11:40 Dose: 10 mg Aspirin (Aspirin Chewable) 81 mg PO DAILY [facility] Last Admin: 07/16/18 11:37 Dose: 81 mg Atorvastatin Calcium (Lipitor) 80 mg PO DIN [facility] Last Admin: 07/15/18 17:41 Dose: 80 mg Ciprofloxacin (Ciloxan 0.3% Ophth Soln) 1 drop OU TID [facility] Last Admin: 07/16/18 13:20 Dose: 1 drop Darbepoetin Rob (Aranesp) 60 mcg IVP ONCE ONE Stop: 07/17/18 07:01 Heparin Sodium (Porcine) (Heparin) 5,000 units SC Q12 [facility]; Protocol Last Admin: 07/16/18 11:36 Dose: 5,000 units Cefazolin Sodium/Dextrose (Ancef Iv 2 Gm Duplex) 2 gm in 50 mls @ 50 mls/hr IVPB TTS [facility]; Protocol Stop: 07/31/18 10:00 Insulin Human Regular (Humulin R Low) 0 units SC ACHS [facility]; Protocol Last Admin: 07/16/18 11:35 Dose: Not Given Levetiracetam (Keppra) 1,000 mg PO BID [facility] Last Admin: 07/16/18 11:36 Dose: 1,000 mg Metoprolol Succinate (Toprol Xl) 25 mg PO BRK [facility] Last Admin: 07/16/18 11:37 Dose: 25 mg Oxycodone/Acetaminophen (Percocet 5/325 Mg Tab) 1 tab PO Q4H PRN PRN Reason: Pain, moderate (4-7) Stop: 07/17/18 10:56 Oxycodone/Acetaminophen (Percocet 5/325 Mg Tab) 2 tab PO Q4H PRN PRN Reason: Pain, severe (8-10) Stop: 07/17/18 10:56 Vitamin B Complex/Vit C/Folic Acid (Nephro-Yocasta) 1 tab PO 0800 [facility] Last Admin: 07/16/18 11:40 Dose: 1 tab - Labs Labs: 07/15/18 10:00 07/15/18 10:00 PT 11.4 SECONDS (9.4-12.5) 07/09/18 16:40 INR 1.00 07/09/18 16:40 APTT 29.9 Seconds (25.1-36.5) 07/14/18 07:15 - Constitutional Appears: Non-toxic, No Acute Distress, Chronically Ill - Head Exam Head Exam: ATRAUMATIC, NORMOCEPHALIC Additional comments: poor dentition - Eye Exam Eye Exam: Scleral icterus Additional comments: legally blind. - ENT Exam ENT Exam: Mucous Membranes Moist, Normal External Ear Exam, TM's Normal Bilaterally - Neck Exam Neck Exam: Full ROM, Normal Inspection - Respiratory Exam Respiratory Exam: Clear to Ausculation Bilateral, NORMAL BREATHING PATTERN. absent: Rales, Rhonchi, Wheezes - Cardiovascular Exam Cardiovascular Exam: REGULAR RHYTHM, RRR, +S1, +S2 - GI/Abdominal Exam GI & Abdominal Exam: Soft, Normal Bowel Sounds. absent: Distended, Tenderness - Extremities Exam Extremities Exam: absent: Joint Swelling, Pedal Edema Additional comments: Right BKA. Left foot with gangrene... wrapped now but s/p 3rd toe amputation. contracted extremities. - Neurological Exam Neurological Exam: Alert, Awake, CN II-XII Intact Additional comments: follows commands, generally weak. AAO x 2. - Psychiatric Exam Psychiatric exam: Normal Affect, Normal Mood - Skin Skin Exam: Intact, Normal Color Assessment and Plan - Assessment and Plan (Free Text) Assessment: 63 yo AA male with multiple medical issues presenting with gangrene of the left foot. I believe that is why he was sent to [facility]. No notes at this time at [facility] at [facility] on why the patient was transferred. Patient is a very poor historian. Start patient on Cefepime and Vancomycin renally dosed for now. [place]rington cultures. Left foot third toe amputation by podiatry on 07/14/2018. WBC on 06/26/2018 was 10.2. Cultures with MSSA. Switched antibiotic to Ancef 2gm with HD. Given all the findings, I would consider completing a 2 week course with Ancef in HD. Supportive care. No new complaints. Local wound care. PMHx includes but not limited to ESRD on HD, HTN, DM, CAD, dyslipidemia, anemia, hypothyroidism, seizure history, PVD, hypothyroidism, secondary hyperparat hyroidism, seizure history, and blindness Thank you for allowing me to participate in the care of the patient, we will follow with you.
--- NOTE | 2018-07-17 02:39 | PN ---
DATE: 07/16/2018 REFERRING PHYSICIAN: Fatmata Wilkins MD SUBJECTIVE: The patient is lying in the bed, he is blind, arousable. Follow simple commands. No headache. No rhinitis. No nausea. No vomiting. No diarrhea. OBJECTIVE: GENERAL: In no acute distress. VITAL SIGNS: Temperature is 98, heart rate is 72, respiratory rate is 18, blood pressure 99/57, pulse ox 98% on room air. HEENT: Moist mucous membranes. Crowded airway. Mallampati score is 4. NECK: Supple. No JVD. LUNGS: Have a fair airflow with rhonchi. HEART: S1 and S2. ABDOMEN: Soft and nontender. No organomegaly. EXTREMITIES: Left BKA. Right foot ulcer. NEUROLOGIC: Sleepy, arousable, blind. MEDICATIONS: He is on Ancef 2 g IV TTS, IV daily was given, aspirin 81 mg daily, Cipro eye drops, heparin 5000 units subcu every 12 hours, insulin coverage, Keppra 1000 mg twice daily, Lipitor 80 mg daily, Nephro vitamins daily, Norvasc 10 mg daily, Percocet 5/325 one tab every 4 hours p.r.n., Toprol-XL 25 mg twice a day, Tylenol p.r.n. basis. LABORATORY DATA: Reviewed, showed blood sugar is 209, has a staph in the foot wound. IMPRESSION AND PLAN: Severe peripheral vascular disease, nonhealing leg ulcer, history of left below knee amputation, renal failure, dialysis dependent, diabetes, coronary artery disease, hyperlipidemia, anemia, hypothyroidism, seizure disorder, may have sleep apnea syndrome. Pulmonary point of view, doing okay. Keep head at 45 degrees. Continue antibiotics. Podiatry followup. Gastric prophylaxis. DVT prophylaxis. Pressure ulcer precaution. Fall precaution. Thank you and we will follow with you. Jeff Trinh MD
[2018-07-17] MEDS ORDERED: Darbepoetin Alfa 60 mcg/ml Inj IVP ONE (07:00)
--- NOTE | 2018-07-17 08:26 | PN ---
DATE: 07/16/2018 SUBJECTIVE: Patient is a 63-year-old male. Patient was seen and examined at the bedside on 07/16/2018. No change in the status. Patient is a very poor historian, got surgery. Feeling better. No hematuria. No hematochezia. PHYSICAL EXAMINATION: VITAL SIGNS: Temperature 97.5, pulse 74, respiratory rate 18, blood pressure 115/59, pulse ox 100. HEENT: Head: Normocephalic and atraumatic. Eyes: PERRLA. Extraocular muscles intact. Conjunctivae clear. Nose patent. Mucous membranes moist. NECK: Supple. No carotid bruit. No JVD or thyromegaly. CHEST: Bilaterally symmetrical. HEART: S1 and S2 positive. LUNGS: Clear to auscultation. ABDOMEN: Soft. Bowel sounds present. No organomegaly. EXTREMITIES: Left extremity amputation below knee. Right foot toe amputation, has dressing. MEDICATIONS: Tylenol, amlodipine, aspirin, Lipitor, ciprofloxacin, heparin, Ancef, Keppra, metoprolol, oxycodone, vitamin B-complex. LABORATORY DATA: White blood cell 13.4, hemoglobin 8, hematocrit 23.6, platelets 219. Sodium 133, potassium 3.3, BUN 45, creatinine 6.3, glucose 140. ASSESSMENT AND PLAN: Mr. Theodore Pedersen is a 63-year-old male with leukocytosis, anemia, hypokalemia, renal insufficiency, hyperglycemia, severe peripheral vascular disease, third toe gangrenous changes, status post amputation, end-stage renal disease on hemodialysis, left arteriovenous graft, diabetes mellitus, hyperthyroidism, left below knee amputation, legally blind, hypertension, seizures, gastritis, coronary artery disease, looks comfortable. Getting treatment from Podiatry and Infectious Disease for gangrenous toes. Cardiac status stable. On Lopressor. Hemodialysis yesterday. Continue present treatment. Gastrointestinal and deep venous thrombosis prophylaxes. Repeat labs. We will follow up. Fatmata Wilkins MD [facility]
--- NOTE | 2018-07-17 09:48 | OP ---
PROCEDURE DATE: 07/15/2018 PREOPERATIVE DIAGNOSIS: Gangrene of the right third digit. POSTOPERATIVE DIAGNOSIS: Gangrene of the right third digit. NAME OF THE OPERATION: Right third digit amputation. SURGEON: Loco Blakely DPM [employer] BRUSHER: Andreina Samaniego. TYPE OF ANESTHESIA: Local with monitored anesthetic care. HEMOSTASIS: No ankle tourniquet was used. ESTIMATED BLOOD LOSS: Minimal. DESCRIPTION OF PROCEDURE: The patient was brought into the operating room and left on his operating bed table. Following IV sedation, local anesthesia was obtained about the right third digit utilizing approximately 12 mL of a 1:1 mixture of 2% lidocaine plain and 0.25% Marcaine plain in a V-type block fashion. The foot was then scrubbed, prepped, and draped in usual aseptic manner. Attention was then directed to the right third digit, which was noted to be gangrenous. A racquet-type incision was utilized where two converging two semi-elliptical longitudinal incisions were made, encompass the base of the right third digit. Incisions were deepened through the subcutaneous tissues with care being taken to identify and retract all vital and neurovascular structures. There was no bleeders to ligate and they was noted to be minimal bleeding at this time. Incision was deepened down to the metatarsophalangeal joint and the toe was removed in toto. Next, utilizing a rongeur, the cartilage on the third metatarsal head was resected and passed from the operative field. Utilizing a bone rasp, the metatarsal head was rasped to smooth. The wound was then flushed with copious amounts of normal sterile saline and a culture was taken for sensitivities. The subcutaneous tissues were then re-approximated and coapted using 3-0 Vicryl and the skin was re-approximated and coapted using 3-0 nylon in a horizontal mattress suture technique. The foot was then cleansed with Betadine solution and a sterile Adaptic soaked Betadine dressing was applied along with sterile 4 x 4 gauze, Kerlix, and paper tape. The patient tolerated the procedure and anesthesia well. He was transferred to the recovery room with all vital signs stable. Following a period of postoperative monitoring, the patient was discharged back to his room with oral postoperative instructions. The patient will be seen in the a.m. for dressing change. Loco Blakely DPM
[2018-07-17] MEDS ORDERED: ceFAZolin IV 2 gm in Dextrose 2 GM/50 ML BAG IVPB SCH (10:00)
== END 2018-07-16 23:00 | DRG 255 ==
LOC: ED 15:46 → ERH 17:44 → 5RSO 21:44
PROVIDERS: ADMIT Internal Medicine; ATTEND Internal Medicine
PROC: 5A1D70Z Performance of Urinary Filtration, Intermittent, Less than 6 Hours Per Day (ICD-10-PCS; 2018-07-10)
PROC: 5A1D70Z Performance of Urinary Filtration, Intermittent, Less than 6 Hours Per Day (ICD-10-PCS; 2018-07-13)
PROC: 0Y6T0Z0 Detachment at Right 3rd Toe, Complete, Open Approach (ICD-10-PCS; principal; 2018-07-14 09:30)
PROC: 5A1D70Z Performance of Urinary Filtration, Intermittent, Less than 6 Hours Per Day (ICD-10-PCS; 2018-07-15)
DX: E11.52 Type 2 diabetes mellitus with diabetic peripheral angiopathy with gangrene (principal); N18.6 End stage renal disease; I96 Gangrene, not elsewhere classified; M86.171 Other acute osteomyelitis, right ankle and foot; N25.81 Secondary hyperparathyroidism of renal origin; I12.0 Hypertensive chronic kidney disease with stage 5 chronic kidney disease or end stage renal disease; E11.22 Type 2 diabetes mellitus with diabetic chronic kidney disease; E11.42 Type 2 diabetes mellitus with diabetic polyneuropathy; E11.319 Type 2 diabetes mellitus with unspecified diabetic retinopathy without macular edema; E11.21 Type 2 diabetes mellitus with diabetic nephropathy; E11.65 Type 2 diabetes mellitus with hyperglycemia; E11.69 Type 2 diabetes mellitus with other specified complication; I25.10 Atherosclerotic heart disease of native coronary artery without angina pectoris; E78.5 Hyperlipidemia, unspecified; E03.9 Hypothyroidism, unspecified; D63.1 Anemia in chronic kidney disease; L97.519 Non-pressure chronic ulcer of other part of right foot with unspecified severity; M89.771 Major osseous defect, right ankle and foot; E11.621 Type 2 diabetes mellitus with foot ulcer; G40.909 Epilepsy, unspecified, not intractable, without status epilepticus; E78.00 Pure hypercholesterolemia, unspecified; H54.8 Legal blindness, as defined in USA; J44.9 Chronic obstructive pulmonary disease, unspecified; Z99.2 Dependence on renal dialysis; Z79.899 Other long term (current) drug therapy; Z89.512 Acquired absence of left leg below knee; Z89.411 Acquired absence of right great toe; Z79.02 Long term (current) use of antithrombotics/antiplatelets; Z87.891 Personal history of nicotine dependence

== ENCOUNTER 2018-08-18 20:11 | Emergency (ER) | payer MEDICARE ==
--- NOTE | 2018-08-18 20:44 | ED PDOC ---
Arrival/HPI - General Chief Complaint: Trauma Time Seen by Provider: 08/18/18 20:28 Historian: Patient - History of Present Illness Narrative History of Present Illness (Text): 08/18/18 20:44 Theodore Pedersen is a 63 year old male, whose past medical history includes ESRD on hemodialysis, hypertension, diabetes, CAD, hyperlipidemia, anemia, hypothyoridism, seizure history, blindness, and left BKA, who presents to the Emergency department sent from alf status post fall. Patient states he was trying to get up from his wheelchair when it tipped over and fell, hitting the front of his head on the floor. Patient sustained a small contusion to his frontal scalp, but states he feels fine otherwise. Patient denies any loss of consciousness, head trauma, back pain, neck pain, headache, dizziness, chest pain, shortness of breath, nausea, vomiting, or any other complaints. Symptom Onset: Gradual Symptom Course: Unchanged Activities at Onset: Light Context: Home Past Medical History - Provider Review Nursing Documentation Reviewed: Yes - Infectious Disease Hx of Infectious Diseases: None - Cardiac Hx Cardiac Disorders: Yes Hx Hypertension: Yes - Pulmonary Hx Respiratory Disorders: No - Neurological Hx Neurological Disorder: Yes Hx Dementia: Yes Hx Seizures: Yes Other/Comment: Toxic metabolic encephalopathy - HEENT Hx HEENT Disorder: Yes Other/Comment: DYSPHAGIA - Renal Hx Renal Disorder: Yes Hx Renal Failure: Yes (with dialysis) - Endocrine/Metabolic Hx Endocrine Disorders: Yes Hx Diabetes Mellitus Type 2: Yes Hx Hypothyroidism: Yes - Hematological/Oncological Hx Blood Disorders: No - Integumentary Hx Dermatological Disorder: Yes Other/Comment: GANGRENE - Musculoskeletal/Rheumatological Hx Musculoskeletal Disorders: Yes Hx Falls: Yes - Gastrointestinal Hx Gastrointestinal Disorders: Yes Other/Comment: Gastritis, GI bleeding 2/2; Esophagitis; Roxana Amaya tear; - Genitourinary/Gynecological Hx Genitourinary Disorders: Yes Hx Incontinence: Yes - Psychiatric Hx Psychophysiologic Disorder: No Hx Substance Use: No - Surgical History Hx Amputation: Yes (left BKA 03/2017; mulitple b/l toes) Other/Comment: AVG thrombectomy with placement of AV fistula; right remoral antiopathy - Anesthesia Hx Anesthesia Reactions: No Hx Malignant Hyperthermia: No Family/Social History - Physician Review Nursing Documentation Reviewed: Yes Family/Social History: Unknown Family HX Smoking Status: Former Smoker Hx Alcohol Use: No Hx Substance Use: No Allergies/Home Meds Allergies/Adverse Reactions: Allergies No Known Allergies Allergy (Verified 08/18/18 20:35) Home Medications: Home Meds Medication Instructions Recorded Confirmed Metoprolol Tartrate 25 mg PO DAILY 07/09/18 08/18/18 Acidoph/L.bulg/Bif.b/S.thermop 1 tab PO BID 08/18/18 08/18/18 [Bacid Caplet] Insulin Human Regular-LOW [HumuLIN 0 units SC ACHS 08/18/18 08/18/18 R LOW] Review of Systems - Physician Review All systems were reviewed & negative as marked: Yes - Review of Systems Constitutional: Normal. absent: Fevers Eyes: Normal ENT: Normal Respiratory: Normal. absent: SOB, Cough Cardiovascular: Normal. absent: Chest Pain Gastrointestinal: Normal. absent: Abdominal Pain, Diarrhea, Nausea, Vomiting Genitourinary Male: Normal. absent: Dysuria, Frequency, Hematuria, Urinary Output Changes Musculoskeletal: Normal. absent: Back Pain, Neck Pain Skin: Normal. absent: Rash Neurological: Normal. absent: Headache, Dizziness Endocrine: Normal Hemo/Lymphatic: Normal Psychiatric: Normal Physical Exam Vital Signs Reviewed: Yes Vital Signs Temp Pulse Resp BP Pulse Ox 08/18/18 20:27 98.1 F 78 18 131/72 100 08/18/18 20:24 97.6 F 82 18 131/72 98 Temperature: Afebrile Blood Pressure: Normal Pulse: Regular Respiratory Rate: Normal Appearance: Positive for: Well-Appearing, Non-Toxic, Comfortable Pain Distress: None Mental Status: Positive for: Alert and Oriented X 3 - Systems Exam Head: Present: Normocephalic, Contusion (Superficial contusion to right frontal scalp) Extroacular Muscles: Present: EOMI Conjunctiva: Present: Normal Mouth: Present: Moist Mucous Membranes Neck: Present: Normal Range of Motion Respiratory/Chest: Present: Clear to Auscultation, Good Air Exchange. No: Respiratory Distress, Accessory Muscle Use Cardiovascular: Present: Regular Rate and Rhythm, Normal S1, S2. No: Murmurs Abdomen: No: Tenderness, Distention, Peritoneal Signs Back: Present: Normal Inspection Upper Extremity: Present: Normal Inspection. No: Cyanosis, Edema Lower Extremity: Present: Normal Inspection. No: Edema Neurological: Present: GCS=15, CN II-XII Intact, Speech Normal Skin: Present: Warm, Dry, Normal Color. No: Rashes Psychiatric: Present: Alert, Oriented x 3, Normal Insight, Normal Concentration Medical Decision Making ED Course and Treatment: 08/18/18 20:44 Impression: 63 year old male presents s/p fall from wheelchair at alf tonight. Plan: -- CT Head w/o contrast -- Reassess and disposition Prior Visits: Notes and results from previous visits were reviewed. Progress Notes: 08/18/18 22:06 CT Head: BRAIN Noncontrast CT brain The cortical sulci appear moderately effaced No acute ischemic or hemorrhagic infarct identified VENTRICLES: The ventricles are disproportionately large compared to the cortical sulci. ORBITS: The orbits are unremarkable. SINUSES AND MASTOIDS: The paranasal sinuses and mastoid air cells are clear. BONES: No fracture. SOFT TISSUES: Unremarkable. IMPRESSION: 1.consider normal pressure hydrocephalus. 2. The ventricles are disproportionately large compared to the cortical sulci. 3. The cortical sulci appear moderately effaced 4. No acute ischemic or hemorrhagic infarct identified Electronically signed on Aug 18, 2018 10:02:19 PM EST by: Abhijit Casas M.D., Certified by [facility]BR 08/18/18 22:[address] Wilkins, who is aware and agrees with plan to discharge pt back to alf. 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 I have reviewed the chart and agree that the record accurately reflects my personal performance of the history, physical exam, medical decision making, and the department course for this patient. I have also personally directed, reviewed, and agree with the discharge instructions and disposition. Disposition/Present on Arrival - Present on Arrival Any Indicators Present on Arrival: No History of DVT/PE: No History of Uncontrolled Diabetes: Yes Urinary Catheter: No History of Decub. Ulcer: No History Surgical Site Infection Following: None - Disposition Have Diagnosis and Disposition been Completed?: Yes Diagnosis: Head injury, Scalp contusion Disposition: TRANSF TO SNF Disposition Time: 23:50 Condition: GOOD Discharge Instructions (ExitCare): Minor Head Injury (DC), Contusion (DC) Additional Instructions: Follow up with this week Referrals: [facility], [Primary Care Provider] - Follow up with primary Forms: [employer] ([place])
[2018-08-18 20:54] VITALS: RESP 18; TEMP 98.1; BMI 21.2
[2018-08-19 00:42] VITALS: BP 132/78; PULSE 70; O2SAT 96
--- NOTE | 2018-08-19 08:26 | CT ---
Date of service: 08/18/2018 PROCEDURE: CT HEAD WITHOUT CONTRAST. HISTORY: injury COMPARISON: None available. TECHNIQUE: Axial computed tomography images were obtained through the head/brain without intravenous contrast. Radiation dose: Total exam DLP = 986.69 mGy-cm. This CT exam was performed using one or more of the following dose reduction techniques: Automated exposure control, adjustment of the mA and/or kV according to patient size, and/or use of iterative reconstruction technique. FINDINGS: HEMORRHAGE: No intracranial hemorrhage. BRAIN: No mass effect or edema. Chronic microvascular changes are seen in the periventricular white matter. VENTRICLES: The ventricles are disproportionately large compared to cortical sulci. This finding can be seen in normal pressure hydrocephalus. Clinical correlation is suggested CALVARIUM: Unremarkable. PARANASAL SINUSES: Unremarkable as visualized. No significant inflammatory changes. MASTOID AIR CELLS: Unremarkable as visualized. No inflammatory changes. OTHER FINDINGS: The report concurs with the preliminary [facility] report IMPRESSION: The ventricles are disproportionately large compared to cortical sulci. This finding can be seen in normal pressure hydrocephalus. Clinical correlation is suggested
== END 2018-08-19 00:40 ==
LOC: ED 20:11
DX: S00.03XA Contusion of scalp, initial encounter (principal); W05.0XXA Fall from non-moving wheelchair, initial encounter; Y92.129 Unspecified place in nursing home as the place of occurrence of the external cause

== ENCOUNTER 2018-10-25 14:10 | Inpatient (IN) | payer MEDICARE, MEDICAID ==
[2018-10-25 14:30] VITALS: BMI 17.3
--- NOTE | 2018-10-25 15:50 | RAD ---
Date of service: 10/25/2018 HISTORY: r/o infiltrate COMPARISON: 07/09/2018 FINDINGS: LUNGS: No active pulmonary disease. PLEURA: No significant pleural effusion identified, no pneumothorax apparent. CARDIOVASCULAR: No aortic atherosclerotic calcification present. Mild aortic tortuosity Mild cardiomegaly no pulmonary vascular congestion. OSSEOUS STRUCTURES: No significant abnormalities. VISUALIZED UPPER ABDOMEN: Normal. OTHER FINDINGS: None. IMPRESSION: No active disease.
[2018-10-25 16:53] LABS: BASO # 0.02 K/mm3 (0.0-2.0); BASO % 0.2 % (0.0-3.0); EOS # 0.3 (0.0-0.7); EOS % 4.1 % (1.5-5.0); GRAN # 5.7 (1.4-6.5); GRAN % 68.7 % (50.0-68.0); HEMOGLOBIN 10.7 g/dL (14.0-18.0); LYMPH # 1.6 (1.2-3.4); LYMPH % 19.2 % (22.0-35.0); MEAN CELL VOLUME 104.3 fl (80.0-105.0); MEAN CORPUSCULAR HGB CONC 31.7 g/dl (31.0-37.0); MEAN PLATELET VOLUME 10.8 fl (7.0-11.0); MONO # 0.7 (0.1-0.6); MONO % 7.8 % (1.0-6.0); RBC 3.24 10^6/uL (3.5-6.1); RED CELL DISTRIBUTION WIDTH 15.4 % (11.5-14.5); WHITE BLOOD COUNT 8.3 10^3/uL (4.5-11.0)
[2018-10-25 17:04] LABS: INR 0.98; PARTIAL THROMBOPLASTIN TIME 30.3 Seconds (25.1-36.5); PROTHROMBIN TIME 11.2 SECONDS (9.4-12.5)
--- NOTE | 2018-10-25 17:22 | US ---
PROCEDURE: Lower extremity BEAU exam HISTORY: Peripheral vascular disease with ischemic right 5th toe. Previous left BKA PHYSICIAN(S): Sergey Jacobs MD. FINDINGS: The right resting BEAU is normal, 1.03. The patient is status post left BKA The right PVR waveforms are normal from the high thigh to ankle. The right metatarsal waveforms are moderately blunted but pulsatile. IMPRESSION: 1. Possible right pedal occlusive disease. The right PVR waveforms are normal to the ankle 2. Normal right resting BEAU 3. Status post left BKA
[2018-10-25 18:50] LABS: ALB/GLOB RATIO 0.8 (1.1-1.8); ALBUMIN 3.5 g/dL (3.0-4.8); CALCIUM 8.9 mg/dL (8.4-10.5)
--- NOTE | 2018-10-25 20:16 | CARD ---
APPROVED REPORT Date of service: 10/25/2018 EKG Measurement Heart [id number] <Conclusion> Normal sinus rhythm Voltage criteria for LVH CPT mildly reduced voltage Borderline ECG
[2018-10-25] MEDS ORDERED: Influenza Vaccine 60 mcg/0.5 mL SYR (4YR UP) IM ONE (23:10)
[2018-10-25] MEDS ORDERED: Pneumococcal 23-Valent Vaccine IM ONE (23:10)
[2018-10-25] MEDS: Insulin Reg-LOW-Coverage SC SCH (23:30)
--- NOTE | 2018-10-26 07:15 | CP.PCM.CON ---
History of Present Illness - History of Present Illness History of Present Illness: Awake, alert, no distress Reason for consultation: Cardiac clearance for possible toe surgery, risk stratification Brief history of present illness: A 63 year old male who was brought to the ER for [facility] for right fifth toe gangrene.Poor historian. He does not know why he is in the hospital. chart reviewed. History of ESRD on hemodialysis 3x a week. with Left AV shunt/graft, diabetes, hypothyroidism, peripheral va scular disease, left BKA, legally blind, hypertension, hyperlipidemia, seizures, anemia, gastritis, GI bleeding, post angioplasty of right leg (07/2017), peripheral neuropathy, coronary artery disease. Seen and examined by me and Dr. Ashraf Review of Systems - Review of Systems All systems: reviewed and no additional remarkable complaints except Review of Systems: as per HPI Past Patient History - Infectious Disease Hx of Infectious Diseases: None - Past Social History Smoking Status: Former Smoker - CARDIAC Hx Cardiac Disorders: Yes Hx Hypercholesterolemia: Yes Hx Hypertension: Yes - PULMONARY Hx Respiratory Disorders: No - NEUROLOGICAL Hx Neurological Disorder: Yes Hx Dementia: Yes Hx Seizures: Yes Other/Comment: Toxic metabolic encephalopathy - HEENT Hx HEENT Problems: Yes Other/Comment: DYSPHAGIA - RENAL Hx Chronic Kidney Disease: Yes Hx Renal Failure: Yes (with dialysis) - ENDOCRINE/METABOLIC Hx Endocrine Disorders: Yes Hx Diabetes Mellitus Type 2: Yes Hx Hypothyroidism: Yes - HEMATOLOGICAL/ONCOLOGICAL Hx Blood Disorders: No - INTEGUMENTARY Hx Dermatological Problems: Yes Other/Comment: GANGRENE - MUSCULOSKELETAL/RHEUMATOLOGICAL Hx Falls: Yes - GASTROINTESTINAL Hx Gastrointestinal Disorders: Yes Other/Comment: Gastritis - GENITOURINARY/GYNECOLOGICAL Hx Incontinence: Yes - PSYCHIATRIC Hx Psychophysiologic Disorder: No - SURGICAL HISTORY Hx Amputation: Yes (left BKA 03/2017; mulitple b/l toes) - ANESTHESIA Hx Anesthesia Reactions: No Hx Malignant Hyperthermia: No Meds Allergies/Adverse Reactions: Allergies Allergy/AdvReac Type Severity Reaction Status Date / Time No Known Allergies Allergy Verified 08/18/18 20:35 - Medications Medications: Current Medications Acetaminophen (Tylenol 325mg Tab) 650 mg PO Q4H PRN PRN Reason: Pain, Mild (1-3) Amlodipine Besylate (Norvasc) 10 mg PO DAILY [facility] Ergocalciferol (Drisdol 50,000 Intl Units Cap) 1 cap PO Q7D [facility] Ferrous Sulfate (Feosol) 324 mg PO DAILY [facility] Insulin Human Regular (Humulin R Low) 0 units SC ACHS [facility]; Protocol Last Admin: 10/25/18 23:30 Dose: Not Given Levothyroxine Sodium (Synthroid) 25 mcg PO 0600 [facility] Last Admin: 10/26/18 06:12 Dose: 25 mcg Metoprolol Tartrate (Lopressor) 50 mg PO BRKDIN [facility] Ondansetron HCl (Zofran Tab) 4 mg PO Q8H PRN PRN Reason: Nausea/Vomiting Sevelamer HCl (Renagel) 1,600 mg PO TID [facility] Vitamin B Complex/Vit C/Folic Acid (Nephro-Yocasta) 1 tab PO 0800 [facility] Physical Exam - Constitutional Appears: Non-toxic, No Acute Distress - Head Exam Head Exam: NORMAL INSPECTION, NORMOCEPHALIC - Eye Exam Additional comments: legally blind - ENT Exam ENT Exam: Mucous Membranes Dry - Neck Exam Neck exam: Positive for: Full Rom, Normal Inspection - Respiratory Exam Respiratory Exam: Decreased Breath Sounds, Clear to Auscultation Bilateral, NORMAL BREATHING PATTERN - Cardiovascular Exam Cardiovascular Exam: +S1, +S2 - Extremities Exam Additional comments: left BKA right foot with toes amputated, 5th digit gangrene - Neurological Exam Neurological exam: Alert - Psychiatric Exam Psychiatric exam: Normal Affect, Normal Mood - Skin Skin Exam: Dry, Normal Color, Warm Results - Vital Signs Recent Vital Signs: Last Vital Signs Temp 98.2 F 10/25/18 21:03 Pulse 71 10/25/18 21:03 Resp 18 10/25/18 22:56 BP 147/71 10/25/18 21:03 Pulse Ox 100 10/25/18 21:03 - Labs Result Diagrams: 10/25/18 16:30 10/25/18 18:25 Labs: Laboratory Results - last 24 hr 10/25/18 10/25/18 10/25/18 16:30 16:30 18:25 WBC 8.3 RBC 3.24 L Hgb 10.7 L D Hct 33.8 L MCV 104.3 D MCH 33.0 MCHC 31.7 RDW 15.4 H Plt Count 282 MPV 10.8 Gran % 68.7 H Lymph % (Auto) 19.2 L [place] % (Auto) 7.8 H Eos % (Auto) 4.1 Baso % (Auto) 0.2 Gran # 5.70 Lymph # (Auto) 1.6 [place] # (Auto) 0.7 H Eos # (Auto) 0.3 Baso # (Auto) 0.02 PT 11.2 INR 0.98 APTT 30.3 Sodium 135 Potassium 4.6 Chloride 98 Carbon Dioxide 29 Anion Gap 13 BUN 43 H Creatinine 6.6 H Est GFR ( Amer) 10 Est GFR (Non-Af Amer) 9 POC Glucose (mg/dL) Random Glucose 79 Calcium 8.9 Total Bilirubin 0.7 AST 29 ALT 31 Alkaline Phosphatase 115 Total Protein 8.0 Albumin 3.5 Globulin 4.5 Albumin/Globulin Ratio 0.8 L Blood Type Antibody Screen BBK History Checked 10/25/18 10/25/18 10/26/18 19:39 23:35 00:38 WBC RBC Hgb Hct MCV MCH MCHC RDW Plt Count MPV Gran % Lymph % (Auto) [place] % (Auto) Eos % (Auto) Baso % (Auto) Gran # Lymph # (Auto) [place] # (Auto) Eos # (Auto) Baso # (Auto) PT INR APTT Sodium Potassium Chloride Carbon Dioxide Anion Gap BUN Creatinine Est GFR ( Amer) Est GFR (Non-Af Amer) POC Glucose (mg/dL) 59 L 147 H Random Glucose Calcium Total Bilirubin AST ALT Alkaline Phosphatase Total Protein Albumin Globulin Albumin/Globulin Ratio Blood Type B POSITIVE Antibody Screen Negative BBK History Checked Patient has bt Assessment & Plan - Assessment and Plan (Free Text) Assessment: A 63 year old male who was brought to the ER for [facility] due to right fifth toe gangrene. Poor historian. He does not know why he is in the hospital. chart reviewed. History of ESRD on hemodialysis 3x a week. with Left AV shunt/graft, diabetes, hypothyroidism, peripheral vascular disease, left BKA, legally blind, hypertension, hyperlipidemia, seizures, anemia, gastritis, GI bleeding, post angioplasty of right leg (07/2017),post 3rd toe digit amputation 07/2018, peripheral neuropathy, coronary artery disease. Normal EKG. Denies chest pain, Denies shortness of breath. No signs of ischemia, No signs of heart failure. Moderate risk for surgery. Cleared from cardiac standpoint. For possible right 5th toe gangrene surgery. Plan: Cardiac status stable Heart rate controlled Blood pressure controlled Cleared for surgery with moderate risk On Norvasc 10 mg daily,Synthroid 25 mcg daily,lopressor 50 mg BID TSH, HgbA1c, lipid panel Continue current treatment Continue current medications Will follow up Plan and treratment discussed with Dr. Ashraf Thank you Dr. Manriquez for the opportunity of taking care of Theodore Slava - Date & Time Date: 10/26/18 Time: 06:35
[2018-10-26] MEDS: Insulin Reg-LOW-Coverage SC SCH ×2 (07:57→16:53)
[2018-10-26] MEDS: Multivitamin Vitamin B Complex (Nephro-Vite) Tab PO SCH (09:02)
--- NOTE | 2018-10-26 11:48 | CP.PCM.APN ---
Subjective - Date & Time of Evaluation Date of Evaluation: 10/26/18 Time of Evaluation: 10:15 - Subjective Subjective: Pt seen and examined at bedside. Denies pain to R foot. In no acute distress. Objective - Vital Signs/Intake and Output Vital Signs (last 24 hours): Temp Pulse Resp BP Pulse Ox 98.1 F 69 20 163/80 H 99 10/26/18 07:00 10/26/18 07:00 10/26/18 07:00 10/26/18 07:00 10/26/18 07:00 - Medications Medications: Current Medications Acetaminophen (Tylenol 325mg Tab) 650 mg PO Q4H PRN PRN Reason: Pain, Mild (1-3) Amlodipine Besylate (Norvasc) 10 mg PO DAILY [facility] Ergocalciferol (Drisdol 50,000 Intl Units Cap) 1 cap PO Q7D [facility] Ferrous Sulfate (Feosol) 324 mg PO DAILY [facility] Last Admin: 10/26/18 09:02 Dose: 324 mg Heparin Sodium (Porcine) (Heparin) 5,000 units SC Q12 [facility]; Protocol Last Admin: 10/26/18 10:33 Dose: Not Given Insulin Human Regular (Humulin R Low) 0 units SC ACHS [facility]; Protocol Last Admin: 10/26/18 07:57 Dose: Not Given Levothyroxine Sodium (Synthroid) 25 mcg PO 0600 [facility] Last Admin: 10/26/18 06:12 Dose: 25 mcg Metoprolol Tartrate (Lopressor) 50 mg PO BRKDIN [facility] Last Admin: 10/26/18 08:39 Dose: Not Given Ondansetron HCl (Zofran Tab) 4 mg PO Q8H PRN PRN Reason: Nausea/Vomiting Sevelamer HCl (Renagel) 1,600 mg PO TID [facility] Last Admin: 10/26/18 09:02 Dose: 1,600 mg Vitamin B Complex/Vit C/Folic Acid (Nephro-Yocasta) 1 tab PO 0800 [facility] Last Admin: 10/26/18 09:02 Dose: 1 tab - Labs Labs: 10/25/18 16:30 10/25/18 18:25 PT 11.2 SECONDS (9.4-12.5) 10/25/18 16:30 INR 0.98 10/25/18 16:30 APTT 30.3 Seconds (25.1-36.5) 10/25/18 16:30 - Constitutional Appears: Well, No Acute Distress - Head Exam Head Exam: NORMOCEPHALIC - Eye Exam Additional comments: legally blind - Respiratory Exam Respiratory Exam: NORMAL BREATHING PATTERN - Cardiovascular Exam Cardiovascular Exam: REGULAR RHYTHM, +S1, +S2 - Rectal Exam Rectal Exam: Deferred - Extremities Exam Additional comments: L BKA R 5th toe gangrene [facility] Avf +bruit/thrill - Neurological Exam Neurological Exam: Alert, Awake Assessment and Plan - Assessment and Plan (Free Text) Assessment: Pt is a 63 y.o. male with pmhx of ESRD on HD, DM, hypothyroid, PVD, L BKA, legally blind, HTN, HLD, anemia, gastritis, GI bleed and CAD who presented for R 5th toe gangrene. Impressions Chest X-Ray 10/25/18 14:33 IMPRESSION: No active disease. Extremity Ultrasound 10/25/18 15:18 IMPRESSION: 1. Possible right pedal occlusive disease. The right PVR waveforms are normal to the ankle 2. Normal right resting BEAU 3. Status post left BKA Plan: Cardio, Podiatry, IR, and, ID, Renal on consult Per Podiatry, pt scheduled for possible R 5th partial ray amputation on 10/28 IV abx per ID recs Meds per MAR Will continue follow
--- NOTE | 2018-10-26 12:46 | CP.PCM.CON ---
History of Present Illness - History of Present Illness History of Present Illness: Nephrology Consultation Note: Assessment: Stable toe gangrene Diabetic chronic Kidney Disease (E11.22) Hypertensive Chronic Kidney Disease (I12.0) End stage renal disease (N18.6) dependence on hemodialysis (Z99.2) (TTS) via AVF Anemia (D64.9), Hyperphosphatemia (E83.39), Secondary Hyperparathyroidism (E21.1), HTN (I12.0) PVD Plan: Will plan for HD today as ordered. Continue with Nephrovite 1 tab/day. PRBC as needed for anemia. not on HILTON with dialysis as last Hb 10.7 Continue with phos binders, check last phos level BP control with meds as ordered. Patient not on RAAS levi, may add if needed for elevated BP Glycemic control, Dialysis consistent diet Further work up/management as per primary team Dose meds/antibiotics (if needed) for ESRD status. Avoid fleets enema/magnesium based laxatives. podiatry follow up Thanks for allowing me to participate in care of your patient. Will follow patient with you. Please call if any Qs Dr Alfred Resendez Office: [phone] Chief Complaint; toe gangrene HPI: Pt is a 63 M with hx of ESRD on hemodialysis (TTS) via AVF , last dialysis sat, chronic anemia, hyperphosphatemia, secondary hyperparathyroidism, Diabetes Mellitus, hypertension PVD, legally blind, left BKA presented with complaints of foot 5th toe gangrene. Renal consult requested for ESRD management. otherwise he feels usual health ROS: Cardiovascular: No chest pain. Pulmonary: No shortness of breath Gastrointestinal: denies abdominal pain No nausea. No vomiting. Genitourinary: No pain while urinating. Denies blood in urine. All other negative except as mentioned in HPI Physical Examination: General Appearance: Comfortable, in no acute respiratory distress, co-operative . Vitals reviewed and noted as below Head; Atraumatic, normocephalic ENT: no ulcers no thrush. Tongue is midline. Oropharynx: no rash or ulcers. EYES: Pupils are equal, round and reactive to light accommodation. Eye muscles and extraocular movement intact. Sclera is anicteric. Neck; supple no lymphadenopathy, no thyromegaly or bruit Lungs: Normal respiratory rate/effort. Breath sounds bilateral equal and clear Heart: Normal rate. s1s2 normal. No rub or gallop. Extremities: no edema. No varicose veins. left BKA. rt foot most toe amputated. has dry gangrene 5th toe Neurological: Patient is alert, awake and oriented to person, place and time. No focal deficit. Strength bilateral appropriate and equal Skin: Warm and dry. Normal turgor. No rash. Palpitation: Normal elasticity for age Abdomen: Abdomen is soft. Bowel sounds +. There is no abdominal tenderness, no guarding/rigidity or organomegaly Psych: normal insight and normal affect/mood MSK: no joint tenderness or swelling. Digits and nails normal, no deformity : kidney or bladder not palpable Access: AVF Labs/imaging reviewed. Past medical history, past surgical history, family history, social history, allergy reviewed and noted as below Family Hx: no hx of CKD. Non contributory Past Patient History - Infectious Disease Hx of Infectious Diseases: None - Past Social History Smoking Status: Former Smoker - CARDIAC Hx Cardiac Disorders: Yes Hx Hypercholesterolemia: Yes Hx Hypertension: Yes - PULMONARY Hx Respiratory Disorders: No - NEUROLOGICAL Hx Neurological Disorder: Yes Hx Dementia: Yes Hx Seizures: Yes Other/Comment: Toxic metabolic encephalopathy - HEENT Hx HEENT Problems: Yes Other/Comment: DYSPHAGIA - RENAL Hx Chronic Kidney Disease: Yes Hx Renal Failure: Yes (with dialysis) - ENDOCRINE/METABOLIC Hx Endocrine Disorders: Yes Hx Diabetes Mellitus Type 2: Yes Hx Hypothyroidism: Yes - HEMATOLOGICAL/ONCOLOGICAL Hx Blood Disorders: No - INTEGUMENTARY Hx Dermatological Problems: Yes Other/Comment: GANGRENE - MUSCULOSKELETAL/RHEUMATOLOGICAL Hx Falls: Yes - GASTROINTESTINAL Hx Gastrointestinal Disorders: Yes Other/Comment: Gastritis - GENITOURINARY/GYNECOLOGICAL Hx Incontinence: Yes - PSYCHIATRIC Hx Psychophysiologic Disorder: No - SURGICAL HISTORY Hx Amputation: Yes (left BKA 03/2017; mulitple b/l toes) - ANESTHESIA Hx Anesthesia Reactions: No Hx Malignant Hyperthermia: No Meds Allergies/Adverse Reactions: Allergies Allergy/AdvReac Type Severity Reaction Status Date / Time No Known Allergies Allergy Verified 08/18/18 20:35 - Medications Medications: Current Medications Acetaminophen (Tylenol 325mg Tab) 650 mg PO Q4H PRN PRN Reason: Pain, Mild (1-3) Amlodipine Besylate (Norvasc) 10 mg PO DAILY [facility] Ergocalciferol (Drisdol 50,000 Intl Units Cap) 1 cap PO Q7D [facility] Ferrous Sulfate (Feosol) 324 mg PO DAILY [facility] Last Admin: 10/26/18 09:02 Dose: 324 mg Heparin Sodium (Porcine) (Heparin) 5,000 units SC Q12 [facility]; Protocol Last Admin: 10/26/18 10:33 Dose: Not Given Insulin Human Regular (Humulin R Low) 0 units SC ACHS [facility]; Protocol Last Admin: 10/26/18 07:57 Dose: Not Given Levothyroxine Sodium (Synthroid) 25 mcg PO 0600 [facility] Last Admin: 10/26/18 06:12 Dose: 25 mcg Metoprolol Tartrate (Lopressor) 50 mg PO BRKDIN [facility] Last Admin: 10/26/18 08:39 Dose: Not Given Ondansetron HCl (Zofran Tab) 4 mg PO Q8H PRN PRN Reason: Nausea/Vomiting Sevelamer HCl (Renagel) 1,600 mg PO TID [facility] Last Admin: 10/26/18 09:02 Dose: 1,600 mg Vitamin B Complex/Vit C/Folic Acid (Nephro-Yocasta) 1 tab PO 0800 [facility] Last Admin: 10/26/18 09:02 Dose: 1 tab Results - Vital Signs Recent Vital Signs: Last Vital Signs Temp 98.1 F 10/26/18 07:00 Pulse 69 10/26/18 07:00 Resp 20 10/26/18 07:00 BP 163/80 H 10/26/18 07:00 Pulse Ox 99 10/26/18 07:00 - Labs Result Diagrams: 10/25/18 16:30 10/25/18 18:25 Labs: Laboratory Results - last 24 hr 10/25/18 10/25/18 10/25/18 16:30 16:30 18:25 WBC 8.3 RBC 3.24 L Hgb 10.7 L D Hct 33.8 L MCV 104.3 D MCH 33.0 MCHC 31.7 RDW 15.4 H Plt Count 282 MPV 10.8 Gran % 68.7 H Lymph % (Auto) 19.2 L Cassia % (Auto) 7.8 H Eos % (Auto) 4.1 Baso % (Auto) 0.2 Gran # 5.70 Lymph # (Auto) 1.6 Cassia # (Auto) 0.7 H Eos # (Auto) 0.3 Baso # (Auto) 0.02 PT 11.2 INR 0.98 APTT 30.3 Sodium 135 Potassium 4.6 Chloride 98 Carbon Dioxide 29 Anion Gap 13 BUN 43 H Creatinine 6.6 H Est GFR ( Amer) 10 Est GFR (Non-Af Amer) 9 POC Glucose (mg/dL) Random Glucose 79 Calcium 8.9 Total Bilirubin 0.7 AST 29 ALT 31 Alkaline Phosphatase 115 Total Protein 8.0 Albumin 3.5 Globulin 4.5 Albumin/Globulin Ratio 0.8 L Blood Type Antibody Screen BBK History Checked 10/25/18 10/25/18 10/26/18 19:39 23:35 00:38 WBC RBC Hgb Hct MCV MCH MCHC RDW Plt Count MPV Gran % Lymph % (Auto) Cassia % (Auto) Eos % (Auto) Baso % (Auto) Gran # Lymph # (Auto) Cassia # (Auto) Eos # (Auto) Baso # (Auto) PT INR APTT Sodium Potassium Chloride Carbon Dioxide Anion Gap BUN Creatinine Est GFR ( Amer) Est GFR (Non-Af Amer) POC Glucose (mg/dL) 59 L 147 H Random Glucose Calcium Total Bilirubin AST ALT Alkaline Phosphatase Total Protein Albumin Globulin Albumin/Globulin Ratio Blood Type B POSITIVE Antibody Screen Negative BBK History Checked Patient has bt 10/26/18 06:57 WBC RBC Hgb Hct MCV MCH MCHC RDW Plt Count MPV Gran % Lymph % (Auto) Cassia % (Auto) Eos % (Auto) Baso % (Auto) Gran # Lymph # (Auto) Cassia # (Auto) Eos # (Auto) Baso # (Auto) PT INR APTT Sodium Potassium Chloride Carbon Dioxide Anion Gap BUN Creatinine Est GFR ( Amer) Est GFR (Non-Af Amer) POC Glucose (mg/dL) 105 Random Glucose Calcium Total Bilirubin AST ALT Alkaline Phosphatase Total Protein Albumin Globulin Albumin/Globulin Ratio Blood Type Antibody Screen BBK History Checked
--- NOTE | 2018-10-26 13:03 | CP.PCM.CON ---
<Arturo Botello - Last Filed: 10/26/18 15:56> History of Present Illness - History of Present Illness History of Present Illness: Podiatry consult note for Dr. Blakely 63M with pmhx of ESRD on hemodialysis (TTS) via AVF , last dialysis sat, chronic anemia, hyperphosphatemia, secondary hyperparathyroidism, Diabetes Mellitus, hypertension PVD, legally blind, left BKA seen and evaluated for left foot fifth digit gangrene with Dr. Blakely. Patient is resting comfortably and had hemodialysis today. PMHx: ESRD on hemodialysis (TTS) via AVF , last dialysis sat, chronic anemia, hyperphosphatemia, secondary hyperparathyroidism, Diabetes Mellitus, hypertension PVD, legally blind, left BKA PSHx: left BKA 03/2017; mulitple b/l toes All: NKDA Past Patient History - Infectious Disease Hx of Infectious Diseases: None - Past Social History Smoking Status: Former Smoker - CARDIAC Hx Cardiac Disorders: Yes Hx Hypercholesterolemia: Yes Hx Hypertension: Yes - PULMONARY Hx Respiratory Disorders: No - NEUROLOGICAL Hx Neurological Disorder: Yes Hx Dementia: Yes Hx Seizures: Yes Other/Comment: Toxic metabolic encephalopathy - HEENT Hx HEENT Problems: Yes Other/Comment: DYSPHAGIA - RENAL Hx Chronic Kidney Disease: Yes Hx Renal Failure: Yes (with dialysis) - ENDOCRINE/METABOLIC Hx Endocrine Disorders: Yes Hx Diabetes Mellitus Type 2: Yes Hx Hypothyroidism: Yes - HEMATOLOGICAL/ONCOLOGICAL Hx Blood Disorders: No - INTEGUMENTARY Hx Dermatological Problems: Yes Other/Comment: GANGRENE - MUSCULOSKELETAL/RHEUMATOLOGICAL Hx Falls: Yes - GASTROINTESTINAL Hx Gastrointestinal Disorders: Yes Other/Comment: Gastritis - GENITOURINARY/GYNECOLOGICAL Hx Incontinence: Yes - PSYCHIATRIC Hx Psychophysiologic Disorder: No - SURGICAL HISTORY Hx Amputation: Yes (left BKA 03/2017; mulitple b/l toes) - ANESTHESIA Hx Anesthesia Reactions: No Hx Malignant Hyperthermia: No Meds Allergies/Adverse Reactions: Allergies Allergy/AdvReac Type Severity Reaction Status Date / Time No Known Allergies Allergy Verified 08/18/18 20:35 - Medications Medications: Current Medications Acetaminophen (Tylenol 325mg Tab) 650 mg PO Q4H PRN PRN Reason: Pain, Mild (1-3) Amlodipine Besylate (Norvasc) 10 mg PO DAILY [facility] Ergocalciferol (Drisdol 50,000 Intl Units Cap) 1 cap PO Q7D [facility] Ferrous Sulfate (Feosol) 324 mg PO DAILY [facility] Last Admin: 10/26/18 09:02 Dose: 324 mg Heparin Sodium (Porcine) (Heparin) 5,000 units SC Q12 [facility]; Protocol Last Admin: 10/26/18 10:33 Dose: Not Given Insulin Human Regular (Humulin R Low) 0 units SC ACHS [facility]; Protocol Last Admin: 10/26/18 07:57 Dose: Not Given Levothyroxine Sodium (Synthroid) 25 mcg PO 0600 [facility] Last Admin: 10/26/18 06:12 Dose: 25 mcg Metoprolol Tartrate (Lopressor) 50 mg PO BRKDIN [facility] Last Admin: 10/26/18 08:39 Dose: Not Given Ondansetron HCl (Zofran Tab) 4 mg PO Q8H PRN PRN Reason: Nausea/Vomiting Sevelamer HCl (Renagel) 1,600 mg PO TID [facility] Last Admin: 10/26/18 09:02 Dose: 1,600 mg Vitamin B Complex/Vit C/Folic Acid (Nephro-Yocasta) 1 tab PO 0800 [facility] Last Admin: 10/26/18 09:02 Dose: 1 tab Physical Exam - Constitutional Appears: Non-toxic, No Acute Distress - Head Exam Head Exam: ATRAUMATIC, NORMOCEPHALIC - Extremities Exam Additional comments: RLE focused VASC: DP and PT pulses nonpalpable; no cap refill assessed as 1-4 digit amputations, 5th >3 seconds; no edema noted, hair growth absent; temp gradient warm to cold DERM: digits 1-4 amputations; fifth digit gangrenous; interdigital maceration between 4th and 5th digits; no pus or drainage currently appreciated; erythema present to fifth digit, signs of infection present ORTHO: mild pain on palpation of macerated interspace; previous amputations of 1-4 digits NEURO: gross and protective sensation absent - Neurological Exam Neurological exam: Alert, Oriented x3 - Psychiatric Exam Psychiatric exam: Normal Affect, Normal Mood Results - Vital Signs Recent Vital Signs: Last Vital Signs Temp 98.1 F 10/26/18 07:00 Pulse 69 10/26/18 07:00 Resp 20 10/26/18 07:00 BP 163/80 H 10/26/18 07:00 Pulse Ox 99 10/26/18 07:00 - Labs Result Diagrams: 10/25/18 16:30 10/25/18 18:25 Labs: Laboratory Results - last 24 hr 10/25/18 10/25/18 10/25/18 16:30 16:30 18:25 WBC 8.3 RBC 3.24 L Hgb 10.7 L D Hct 33.8 L MCV 104.3 D MCH 33.0 MCHC 31.7 RDW 15.4 H Plt Count 282 MPV 10.8 Gran % 68.7 H Lymph % (Auto) 19.2 L Lewis % (Auto) 7.8 H Eos % (Auto) 4.1 Baso % (Auto) 0.2 Gran # 5.70 Lymph # (Auto) 1.6 Lewis # (Auto) 0.7 H Eos # (Auto) 0.3 Baso # (Auto) 0.02 PT 11.2 INR 0.98 APTT 30.3 Sodium 135 Potassium 4.6 Chloride 98 Carbon Dioxide 29 Anion Gap 13 BUN 43 H Creatinine 6.6 H Est GFR ( Amer) 10 Est GFR (Non-Af Amer) 9 POC Glucose (mg/dL) Random Glucose 79 Calcium 8.9 Total Bilirubin 0.7 AST 29 ALT 31 Alkaline Phosphatase 115 Total Protein 8.0 Albumin 3.5 Globulin 4.5 Albumin/Globulin Ratio 0.8 L Blood Type Antibody Screen BBK History Checked 10/25/18 10/25/18 10/26/18 19:39 23:35 00:38 WBC RBC Hgb Hct MCV MCH MCHC RDW Plt Count MPV Gran % Lymph % (Auto) Lewis % (Auto) Eos % (Auto) Baso % (Auto) Gran # Lymph # (Auto) Lewis # (Auto) Eos # (Auto) Baso # (Auto) PT INR APTT Sodium Potassium Chloride Carbon Dioxide Anion Gap BUN Creatinine Est GFR ( Amer) Est GFR (Non-Af Amer) POC Glucose (mg/dL) 59 L 147 H Random Glucose Calcium Total Bilirubin AST ALT Alkaline Phosphatase Total Protein Albumin Globulin Albumin/Globulin Ratio Blood Type B POSITIVE Antibody Screen Negative BBK History Checked Patient has bt 10/26/18 06:57 WBC RBC Hgb Hct MCV MCH MCHC RDW Plt Count MPV Gran % Lymph % (Auto) Lewis % (Auto) Eos % (Auto) Baso % (Auto) Gran # Lymph # (Auto) Lewis # (Auto) Eos # (Auto) Baso # (Auto) PT INR APTT Sodium Potassium Chloride Carbon Dioxide Anion Gap BUN Creatinine Est GFR ( Amer) Est GFR (Non-Af Amer) POC Glucose (mg/dL) 105 Random Glucose Calcium Total Bilirubin AST ALT Alkaline Phosphatase Total Protein Albumin Globulin Albumin/Globulin Ratio Blood Type Antibody Screen BBK History Checked Assessment & Plan - Assessment and Plan (Free Text) Assessment: 63M with extensive pmhx seen and evaluated for right fifth digit gangrene and infection Plan: Patient seen and evaluated with Dr. Blakely Afebrile, absent leukocytosis Right fifth digit cleansed with saline and dressed with betadine soaked dressing in interspace Vascular consult, Dr. Reynaldo garcia appreciated, right foot proximal perfusion appreciated Patient cleared for surgery from cardiac standpoint Scheduled for 7:30AM right fifth ray partial amputation Heparin held today, resume Thursday NPO tomorrow after midnight Podiatry will continue to follow ref[place]io in [place] - Date & Time Date: 10/26/18 Time: 16:04 <Loco Blakely - Last Filed: 10/26/18 17:32> Meds - Medications Medications: Current Medications Acetaminophen (Tylenol 325mg Tab) 650 mg PO Q4H PRN PRN Reason: Pain, Mild (1-3) Amlodipine Besylate (Norvasc) 10 mg PO DAILY [facility] Ergocalciferol (Drisdol 50,000 Intl Units Cap) 1 cap PO Q7D [facility] Ferrous Sulfate (Feosol) 324 mg PO DAILY [facility] Last Admin: 10/26/18 09:02 Dose: 324 mg Heparin Sodium (Porcine) (Heparin) 5,000 units SC Q12 [facility]; Protocol Last Admin: 10/26/18 10:33 Dose: Not Given Insulin Human Regular (Humulin R Low) 0 units SC ACHS [facility]; Protocol Last Admin: 10/26/18 16:53 Dose: Not Given Levothyroxine Sodium (Synthroid) 25 mcg PO 0600 [facility] Last Admin: 10/26/18 06:12 Dose: 25 mcg Metoprolol Tartrate (Lopressor) 50 mg PO BRKDIN [facility] Last Admin: 10/26/18 08:39 Dose: Not Given Ondansetron HCl (Zofran Tab) 4 mg PO Q8H PRN PRN Reason: Nausea/Vomiting Sevelamer HCl (Renagel) 1,600 mg PO TID [facility] Last Admin: 10/26/18 14:00 Dose: Not Given Vitamin B Complex/Vit C/Folic Acid (Nephro-Yocasta) 1 tab PO 0800 [facility] Last Admin: 10/26/18 09:02 Dose: 1 tab Results - Vital Signs Recent Vital Signs: Last Vital Signs Temp 98.3 F 10/26/18 16:23 Pulse 80 10/26/18 16:23 Resp 16 10/26/18 16:23 BP 143/77 10/26/18 16:23 Pulse Ox 100 10/26/18 16:23 - Labs Result Diagrams: 10/25/18 16:30 10/25/18 18:25 Labs: Laboratory Results - last 24 hr 10/25/18 10/25/18 10/25/18 18:25 19:39 23:35 Sodium 135 Potassium 4.6 Chloride 98 Carbon Dioxide 29 Anion Gap 13 BUN 43 H Creatinine 6.6 H Est GFR ( Amer) 10 Est GFR (Non-Af Amer) 9 POC Glucose (mg/dL) 59 L Random Glucose 79 Calcium 8.9 Total Bilirubin 0.7 AST 29 ALT 31 Alkaline Phosphatase 115 Total Protein 8.0 Albumin 3.5 Globulin 4.5 Albumin/Globulin Ratio 0.8 L Blood Type B POSITIVE Antibody Screen Negative BBK History Checked Patient has bt 10/26/18 10/26/18 10/26/18 00:38 06:57 16:36 Sodium Potassium Chloride Carbon Dioxide Anion Gap BUN Creatinine Est GFR ( Amer) Est GFR (Non-Af Amer) POC Glucose (mg/dL) 147 H 105 78 Random Glucose Calcium Total Bilirubin AST ALT Alkaline Phosphatase Total Protein Albumin Globulin Albumin/Globulin Ratio Blood Type Antibody Screen BBK History Checked Attending/Attestation - Attestation I have personally seen and examined this patient.: Yes I have fully participated in the care of the patient.: Yes I have reviewed all pertinent clinical information: Yes
--- NOTE | 2018-10-26 20:56 | CARD ---
APPROVED REPORT Date of service: 10/26/2018 EXAM: Two-dimensional and M-mode echocardiogram with Doppler and color Doppler. INDICATION Pre-Op 2D DIMENSIONS Left Atrium (2D)3.9 (1.6-4.0cm)IVSd1.4 (0.7-1.1cm) LVDd5.4 (3.9-5.9cm)PWd1.4 (0.7-1.1cm) LVDs4.4 (2.5-4.0cm)FS (%) 19.4 % LVEF (%)39.7 (>50%) M-Mode DIMENSIONS Aortic Root3.60 (2.2-3.7cm)Aortic Cusp Exc.1.90 (1.5-2.0cm) Aortic Valve AoV Peak Auykwgrb874.0cm/Lilia Peak GR.12mmHg Mitral Valve MV E Tmhfhkag56.0cm/sMV A Fnhclwmm244.0cm/sE/A ratio0.7 TDI E/Lateral E'0.0E/Medial E'0.0 Tricuspid Valve TR Peak [id number]/sRAP [id number] Peak Gr.13mmHg [id number] LEFT VENTRICLE The left ventricle is normal size. There is mild to moderate concentric left ventricular hypertrophy. The systolic function is mildly to moderately impaired.EF-35-40% There is mild to moderate hypokinesis in the apical anterior wall. Transmitral Doppler flow pattern is Grade III-reversible restrictive diastolic dysfunction. No left ventricle thrombus noted on this study. There is no ventricular septal defect visualized. There is no left ventricular aneurysm. There is no mass noted in the left ventricle. RIGHT VENTRICLE The right ventricle is normal size. There is normal right ventricular wall thickness. The right ventricular systolic function is normal. ATRIA The left atrium size is normal. The right atrium size is normal. The interatrial septum is intact with no evidence for an atrial septal defect. AORTIC VALVE The aortic valve is calcified and displays decreased opening. The aortic valve is moderately sclerotic. There is mild aortic regurgitation. Aortic Sclerosis Vs Mild MITRAL VALVE The mitral valve is thickened but opens well. Mitral regurgitation is trace. There is no mitral valve stenosis. There is no evidence of mitral valve prolapse. TRICUSPID VALVE The tricuspid valve leaflets are thickened , but open well. There is trace tricuspid regurgitation.RVSP-17 mmof Hg. There is no tricuspid valve stenosis. There is no tricuspid valve prolapse or vegetation. PULMONIC VALVE The pulmonary valve is normal in structure. There is no pulmonic valvular regurgitation. There is no pulmonic valvular stenosis. GREAT VESSELS The aortic root is normal in size. The ascending aorta is normal in size. The pulmonary artery is normal. The IVC is normal in size and collapses >50% with inspiration. PERICARDIAL EFFUSION There is no pleural effusion. Trivial pericardial effusion <Conclusion> Normal ChamberSize. EF-35-40% There is mild aortic regurgitation. Aortic Sclerosis Vs Mild Mitral regurgitation is trace. There is trace tricuspid regurgitation.RVSP-17 mmof Hg. The IVC is normal in size and collapses >50% with inspiration. Trivial pericardial effusion. No vegetation or thrombus noted.
[2018-10-27] MEDS: Levothyroxine 25 MCG TAB PO SCH (06:12)
[2018-10-27 06:44] LABS: HDL CHOLESTEROL 36 mg/dL (29-60)
[2018-10-27 06:56] LABS: LDL CHOLESTEROL 86 mg/dL (0-129)
--- NOTE | 2018-10-27 07:08 | CP.PCM.PN ---
Subjective - Date & Time of Evaluation Date of Evaluation: 10/27/18 Time of Evaluation: 06:20 - Subjective Subjective: Awake, alert, no distress Reason for consultation and follow up: Cardiac clearance for possible toe surgery, risk stratification,History of ESRD on hemodialysis 3x a week. with Left AV shunt/graft, diabetes, hypothyroidism, peripheral vascular disease, left BKA, legally blind, hypertension, hyperlipidemia, seizures, anemia, gastritis, GI bleeding, post angioplasty of right leg (07/2017), peripheral neuropathy, coronary artery disease. Seen and examined by me and Dr. Ashraf Objective - Vital Signs/Intake and Output Vital Signs (last 24 hours): Temp Pulse Resp BP Pulse Ox 97.3 F L 72 20 154/82 H 98 10/26/18 23:22 10/26/18 23:22 10/26/18 23:22 10/26/18 23:22 10/26/18 23:22 - Medications Medications: Current Medications Acetaminophen (Tylenol 325mg Tab) 650 mg PO Q4H PRN PRN Reason: Pain, Mild (1-3) Amlodipine Besylate (Norvasc) 10 mg PO DAILY [facility] Last Admin: 10/26/18 18:15 Dose: Not Given Ergocalciferol (Drisdol 50,000 Intl Units Cap) 1 cap PO Q7D [facility] Ferrous Sulfate (Feosol) 324 mg PO DAILY [facility] Last Admin: 10/26/18 09:02 Dose: 324 mg Heparin Sodium (Porcine) (Heparin) 5,000 units SC Q12 [facility]; Protocol Last Admin: 10/26/18 10:33 Dose: Not Given Insulin Human Regular (Humulin R Low) 0 units SC ACHS [facility]; Protocol Last Admin: 10/26/18 16:53 Dose: Not Given Levothyroxine Sodium (Synthroid) 25 mcg PO 0600 [facility] Last Admin: 10/26/18 06:12 Dose: 25 mcg Metoprolol Tartrate (Lopressor) 50 mg PO BRKDIN [facility] Last Admin: 10/26/18 18:16 Dose: Not Given Ondansetron HCl (Zofran Tab) 4 mg PO Q8H PRN PRN Reason: Nausea/Vomiting Sevelamer HCl (Renagel) 1,600 mg PO TID [facility] Last Admin: 10/26/18 18:15 Dose: Not Given Vitamin B Complex/Vit C/Folic Acid (Nephro-Yocasta) 1 tab PO 0800 [facility] Last Admin: 10/26/18 09:02 Dose: 1 tab - Labs Labs: 10/25/18 16:30 10/25/18 18:25 PT 11.2 SECONDS (9.4-12.5) 10/25/18 16:30 INR 0.98 10/25/18 16:30 APTT 30.3 Seconds (25.1-36.5) 10/25/18 16:30 - Constitutional Appears: Non-toxic, No Acute Distress - Head Exam Head Exam: NORMAL INSPECTION, NORMOCEPHALIC - Eye Exam Additional comments: legally blind - ENT Exam ENT Exam: Mucous Membranes Moist, Normal Exam - Respiratory Exam Respiratory Exam: Decreased Breath Sounds, Clear to Ausculation Bilateral, NORMAL BREATHING PATTERN - Cardiovascular Exam Cardiovascular Exam: +S1, +S2 - GI/Abdominal Exam GI & Abdominal Exam: Soft, Normal Bowel Sounds - Exam Additional comments: ESRD on hemodialysis 3 x a week - Extremities Exam Additional comments: left BKA right fifth toe with dressing left AV shunt positive bruit - Neurological Exam Neurological Exam: Alert, Awake - Psychiatric Exam Psychiatric exam: Normal Affect, Normal Mood - Skin Skin Exam: Dry, Normal Color, Warm Assessment and Plan - Assessment and Plan (Free Text) Assessment: A 63 year old male who was brought to the ER for [facility] due to right fifth toe gangrene. Poor historian. He does not know why he is in the hospital. chart reviewed. History of ESRD on hemodialysis 3x a week. with Left AV shunt/graft, diabetes, hypothyroidism, peripheral vascular disease, left BKA, legally blind, hypertension, hyperlipidemia, seizures, anemia, gastritis, GI bleeding, post angioplasty of right leg (07/2017),post 3rd toe digit amputation 07/2018, peripheral neuropathy, coronary artery disease. Normal EKG. Denies chest pain, Denies shortness of breath. No signs of ischemia, No signs of heart failure. For possible right 5th toe gangrene surgery.Echo done yesterday, Normal chamber size, LVEF 35-40%,mild aortic regurgitation,trace MR/TR, trivial pericardial effusion. no vegetation or thrombus.Moderate risk for surgery. C leared from cardiac standpoint. Normal Lipid and TSH levels. Plan: Denies chest pain, no distress For possible right 5th toe gangrene surgery tomorrow () Cleared for surgery with moderate risk Cardiac status stable Heart rate controlled Blood pressure controlled On Norvasc 10 mg daily,Synthroid 25 mcg daily,Lopressor 50 mg BID Continue current treatment Continue current medications Will follow up postoperatively Plan and treatment discussed with Dr. Ashraf
--- NOTE | 2018-10-27 08:14 | CON ---
DATE: 10/26/2018 CONSULT SERVICE: Cardiology. REASON FOR CONSULTATION: Cardiac clearance for amputation of right toe, preop evaluation and risk stratification. This note is addition to dictated by nurse practitioner, Xiomara Ann detailed consult. BRIEF CLINICAL HISTORY: This is a 63-year-old male brought to the emergency room from [facility] for possible amputation of right fifth toe because of gangrene. History of end-stage renal disease, on dialysis six months; history of left BKA; history of multiple transmetatarsal right toe, now for right fifth toe for amputation; legally blind; history of hypertension, hyperlipidemia, and neuropathy. No complaint of chest pain or shortness of breath or dyspnea on exertion. History of end-stage renal disease, on dialysis; history of right leg angioplasty in 07/2017; and history of third toe amputation in 07/2018. EKG shows normal sinus; no acute ST-T changes noted. RECOMMENDATIONS: Since the patient has no history of arrhythmia,CHF, ischemia or no complaint of any chest pain, we will clear the patient as a moderate risk, they go for OR. We will get echo if not done in the last six months to assess LV function. Recommendation as mentioned; continue perioperative beta-levi. Continue amlodipine and atorvastatin. We will clear the patient to moderate risk. No absolute contraindication. No evidence of ischemia; no evidence of angina or arrhythmia or congestive heart failure. We will follow with you. Continue dialysis. We will get echo to assess LV function. We will get lipid profile, TSH, and hemoglobin A1c. Thank you Dr. Wilkins for providing us the opportunity in taking care of the patient, Theodore Pedersen. Jeff Ashraf MD [facility]
[2018-10-27] MEDS: Multivitamin Vitamin B Complex (Nephro-Vite) Tab PO SCH (08:44)
[2018-10-27] MEDS: Insulin Reg-LOW-Coverage SC SCH ×2 (08:45→22:01)
[2018-10-27] MEDS ORDERED: Ergocalciferol 50,000 Intl Units Cap PO SCH (10:00)
--- NOTE | 2018-10-27 10:03 | CP.PCM.PN ---
<Arturo Botello - Last Filed: 10/27/18 09:59> Subjective - Date & Time of Evaluation Date of Evaluation: 10/27/18 Time of Evaluation: 09:59 - Subjective Subjective: Podiatry progress note for Dr. Frost 63M seen and evaluated at bedside with Dr. Frost. Patient is resting comfortably with a nurse assisting him in eating his breakfast. Denies any complaints today and nurse states he had no acute events overnight. Objective - Vital Signs/Intake and Output Vital Signs (last 24 hours): Temp Pulse Resp BP Pulse Ox 99.7 F H 92 H 18 126/65 96 10/27/18 06:00 10/27/18 08:44 10/27/18 06:00 10/27/18 08:44 10/27/18 06:00 - Medications Medications: Current Medications Acetaminophen (Tylenol 325mg Tab) 650 mg PO Q4H PRN PRN Reason: Pain, Mild (1-3) Ergocalciferol (Drisdol 50,000 Intl Units Cap) 1 cap PO Q7D [facility] Ferrous Sulfate (Feosol) 324 mg PO DAILY [facility] Last Admin: 10/26/18 09:02 Dose: 324 mg Heparin Sodium (Porcine) (Heparin) 5,000 units SC Q12 [facility]; Protocol Last Admin: 10/26/18 10:33 Dose: Not Given Insulin Human Regular (Humulin R Low) 0 units SC ACHS [facility]; Protocol Last Admin: 10/27/18 08:45 Dose: Not Given Levothyroxine Sodium (Synthroid) 25 mcg PO 0600 [facility] Last Admin: 10/26/18 06:12 Dose: 25 mcg Lisinopril (Zestril) 2.5 mg PO DAILY [facility] Metoprolol Tartrate (Lopressor) 50 mg PO BRKDIN [facility] Last Admin: 10/27/18 08:44 Dose: 50 mg Ondansetron HCl (Zofran Tab) 4 mg PO Q8H PRN PRN Reason: Nausea/Vomiting Sevelamer HCl (Renagel) 1,600 mg PO TID [facility] Last Admin: 10/26/18 18:15 Dose: Not Given Vitamin B Complex/Vit C/Folic Acid (Nephro-Yocasta) 1 tab PO 0800 [facility] Last Admin: 10/27/18 08:44 Dose: 1 tab - Labs Labs: 10/25/18 16:30 10/25/18 18:25 PT 11.2 SECONDS (9.4-12.5) 10/25/18 16:30 INR 0.98 10/25/18 16:30 APTT 30.3 Seconds (25.1-36.5) 10/25/18 16:30 - Constitutional Appears: Non-toxic, No Acute Distress - Head Exam Head Exam: NORMOCEPHALIC - Extremities Exam Additional comments: RLE focused VASC: DP and PT pulses nonpalpable; no cap refill assessed as 1-4 digit amputations, 5th >3 seconds; no edema noted, hair growth absent; temp gradient warm to cold DERM: digits 1-4 amputations; fifth digit gangrenous; interdigital maceration between 4th and 5th digits; no pus or drainage currently appreciated; erythema present to fifth digit, signs of infection present ORTHO: mild pain on palpation of macerated interspace; previous amputations of 1-4 digits NEURO: gross and protective sensation absent - Neurological Exam Neurological Exam: Alert, Awake - Psychiatric Exam Psychiatric exam: Normal Affect, Normal Mood Assessment and Plan - Assessment and Plan (Free Text) Assessment: 63M with right fifth digit gangrene and infection Plan: Patient seen and evaluated with Dr. Frost Afebrile, absent leukocytosis Right fifth digit cleansed with saline and dressed with betadine soaked dressing in interspace Vascular consult, Dr. Reynaldo garcia appreciated, right foot proximal perfusion appreciated Patient cleared for surgery from cardiac standpoint Scheduled for 7:30AM tomorrow right fifth ray partial amputation Resume heparin Thursday NPO tonight after midnight Podiatry will continue to follow [facility] in [place] <Yany Frost - Last Filed: 10/31/18 18:56> Objective - Vital Signs/Intake and Output Vital Signs (last 24 hours): Temp Pulse Resp BP Pulse Ox 98.5 F 76 18 124/62 100 10/31/18 14:00 10/31/18 17:59 10/31/18 17:59 10/31/18 17:59 10/31/18 14:00 - Medications Medications: Current Medications Acetaminophen (Tylenol 325mg Tab) 650 mg PO Q4H PRN PRN Reason: Pain, Mild (1-3) Darbepoetin Rob (Aranesp) 60 mcg IVP QWK [facility] Ergocalciferol (Drisdol 50,000 Intl Units Cap) 1 cap PO Q7D [facility] Last Admin: 10/27/18 10:53 Dose: 1 cap Ferrous Sulfate (Feosol) 324 mg PO DAILY [facility] Last Admin: 10/31/18 10:03 Dose: 324 mg Heparin Sodium (Porcine) (Heparin) 5,000 units SC Q12 [facility]; Protocol Last Admin: 10/31/18 10:04 Dose: 5,000 units Meropenem/Sodium Chloride (Merrem Iv 500 Mg/Ns 50 Ml) 500 mg in 50 mls @ 100 mls/hr IVPB Q24H [facility]; Protocol Stop: 11/04/18 14:16 Last Admin: 10/31/18 14:12 Dose: 100 mls/hr Vancomycin HCl (Vancomycin 750 Mg In Ns) 750 mg in 250 mls @ 167 mls/hr IVPB TTS@2200 [facility]; Protocol Last Admin: 10/30/18 22:29 Dose: 167 mls/hr Insulin Human Regular (Humulin R Low) 0 units SC ACHS [facility]; Protocol Last Admin: 10/31/18 17:52 Dose: Not Given Levothyroxine Sodium (Synthroid) 25 mcg PO 0600 [facility] Last Admin: 10/31/18 06:26 Dose: 25 mcg Lisinopril (Zestril) 2.5 mg PO DAILY [facility] Last Admin: 10/31/18 09:56 Dose: Not Given Metoprolol Tartrate (Lopressor) 50 mg PO BRKDIN [facility] Last Admin: 10/31/18 17:57 Dose: 50 mg Ondansetron HCl (Zofran Tab) 4 mg PO Q8H PRN PRN Reason: Nausea/Vomiting Sevelamer HCl (Renagel) 800 mg PO TID [facility] Last Admin: 10/31/18 17:57 Dose: 800 mg Vitamin B Complex/Vit C/Folic Acid (Nephro-Yocasta) 1 tab PO 0800 [facility] Last Admin: 10/31/18 10:03 Dose: 1 tab - Labs Labs: 10/31/18 07:30 10/30/18 09:00 PT 11.2 SECONDS (9.4-12.5) 10/25/18 16:30 INR 0.98 10/25/18 16:30 APTT 30.3 Seconds (25.1-36.5) 10/25/18 16:30 Attending/Attestation - Attestation I have personally seen and examined this patient.: Yes I have fully participated in the care of the patient.: Yes I have reviewed all pertinent clinical information, including history, physical exam and plan: Yes
--- NOTE | 2018-10-27 12:10 | CP.PCM.CON ---
<Pk Velásquez - Last Filed: 10/27/18 12:17> History of Present Illness - History of Present Illness History of Present Illness: Infectious disease consult note: 63M with pmhx of ESRD on hemodialysis (Tues, thyovanny, sat), chronic anemia,secondary hyperparathyroidism, DM, hypertension, PVD, legally blind, left JANETA (2016) [facility]. patient is poor historian. He has had L BKA done in 2017 and has had all of the R foot digits amputated. Now ID being consulted for Right foot fifth digit gangrene 12 Point ROS limited due to poor historian PMHx: as above PSHx: left BKA 03/2017; mulitple right toe ampuation All: NKDA SH: Denies any current etoh, smoking or drug use Review of Systems - Review of Systems All systems: reviewed and no additional remarkable complaints except Past Patient History - Infectious Disease Hx of Infectious Diseases: None - Past Social History Smoking Status: Former Smoker - CARDIAC Hx Cardiac Disorders: Yes Hx Hypercholesterolemia: Yes Hx Hypertension: Yes - PULMONARY Hx Respiratory Disorders: No - NEUROLOGICAL Hx Neurological Disorder: Yes Hx Dementia: Yes Hx Seizures: Yes Other/Comment: Toxic metabolic encephalopathy - HEENT Hx HEENT Problems: Yes Other/Comment: DYSPHAGIA - RENAL Hx Chronic Kidney Disease: Yes Hx Renal Failure: Yes (with dialysis) - ENDOCRINE/METABOLIC Hx Endocrine Disorders: Yes Hx Diabetes Mellitus Type 2: Yes Hx Hypothyroidism: Yes - HEMATOLOGICAL/ONCOLOGICAL Hx Blood Disorders: No - INTEGUMENTARY Hx Dermatological Problems: Yes Other/Comment: GANGRENE - MUSCULOSKELETAL/RHEUMATOLOGICAL Hx Falls: Yes - GASTROINTESTINAL Hx Gastrointestinal Disorders: Yes Other/Comment: Gastritis - GENITOURINARY/GYNECOLOGICAL Hx Incontinence: Yes - PSYCHIATRIC Hx Psychophysiologic Disorder: No - SURGICAL HISTORY Hx Amputation: Yes (left BKA 03/2017; mulitple b/l toes) - ANESTHESIA Hx Anesthesia Reactions: No Hx Malignant Hyperthermia: No Meds Allergies/Adverse Reactions: Allergies Allergy/AdvReac Type Severity Reaction Status Date / Time No Known Allergies Allergy Verified 08/18/18 20:35 - Medications Medications: Current Medications Acetaminophen (Tylenol 325mg Tab) 650 mg PO Q4H PRN PRN Reason: Pain, Mild (1-3) Ergocalciferol (Drisdol 50,000 Intl Units Cap) 1 cap PO Q7D [facility] Last Admin: 10/27/18 10:53 Dose: 1 cap Ferrous Sulfate (Feosol) 324 mg PO DAILY [facility] Last Admin: 10/27/18 10:44 Dose: 324 mg Heparin Sodium (Porcine) (Heparin) 5,000 units SC Q12 [facility]; Protocol Last Admin: 10/26/18 10:33 Dose: Not Given Vancomycin HCl 1.25 gm/ Sodium (Chloride) 500 mls @ 167 mls/hr IVPB ONCE [facility]; Protocol Stop: 10/27/18 22:59 Insulin Human Regular (Humulin R Low) 0 units SC ACHS [facility]; Protocol Last Admin: 10/27/18 08:45 Dose: Not Given Levothyroxine Sodium (Synthroid) 25 mcg PO 0600 [facility] Last Admin: 10/26/18 06:12 Dose: 25 mcg Lisinopril (Zestril) 2.5 mg PO DAILY [facility] Last Admin: 10/27/18 10:54 Dose: Not Given Metoprolol Tartrate (Lopressor) 50 mg PO BRKDIN [facility] Last Admin: 10/27/18 08:44 Dose: 50 mg Ondansetron HCl (Zofran Tab) 4 mg PO Q8H PRN PRN Reason: Nausea/Vomiting Sevelamer HCl (Renagel) 1,600 mg PO TID [facility] Last Admin: 10/27/18 10:44 Dose: 1,600 mg Vitamin B Complex/Vit C/Folic Acid (Nephro-Yocasta) 1 tab PO 0800 [facility] Last Admin: 10/27/18 08:44 Dose: 1 tab Physical Exam - Constitutional Appears: No Acute Distress - Head Exam Head Exam: ATRAUMATIC, NORMOCEPHALIC - Eye Exam Eye Exam: EOMI - ENT Exam ENT Exam: Mucous Membranes Moist - Respiratory Exam Respiratory Exam: Clear to Auscultation Bilateral (no r/r/w) - Cardiovascular Exam Cardiovascular Exam: REGULAR RHYTHM, +S1, +S2 - GI/Abdominal Exam GI & Abdominal Exam: Normal Bowel Sounds, Soft - Extremities Exam Extremities exam: Negative for: calf tenderness, pedal edema - Neurological Exam Neurological exam: Alert, Oriented x3 - Psychiatric Exam Psychiatric exam: Normal Mood - Skin Skin Exam: Dry, Warm Results - Vital Signs Recent Vital Signs: Last Vital Signs Temp 99.7 F H 10/27/18 06:00 Pulse 71 10/27/18 10:54 Resp 18 10/27/18 06:00 BP 108/53 L 10/27/18 10:54 Pulse Ox 96 10/27/18 06:00 - Labs Result Diagrams: 10/25/18 16:30 10/25/18 18:25 Labs: Laboratory Results - last 24 hr 10/26/18 10/26/18 10/27/18 16:36 21:33 05:35 POC Glucose (mg/dL) 78 130 H Triglycerides 63 Cholesterol 163 LDL Cholesterol Direct 86 HDL Cholesterol 36 TSH 3rd Generation 10/27/18 10/27/18 10/27/18 05:35 06:50 11:34 POC Glucose (mg/dL) 103 136 H Triglycerides Cholesterol LDL Cholesterol Direct HDL Cholesterol TSH 3rd Generation 3.14 Assessment & Plan - Assessment and Plan (Free Text) Assessment: 63M with pmhx of ESRD on hemodialysis (Lam, janny, deloris), chronic anemia,secondary hyperparathyroidism, DM, hypertension, PVD, legally blind, left BKA (2017) [facility] with [facility]. - Monitor off of abx at this time - Scheduled for a dose of Vanco tonight - F/u podiatry recs - fifth ray partial amputation tomorrow - F/u vascular, and nephro consult and recs - F/u septic work up - Cont to monitor Case and plan was reviewed and discussed with Dr Casper <Jose Casper - Last Filed: 10/27/18 17:37> Meds - Medications Medications: Current Medications Acetaminophen (Tylenol 325mg Tab) 650 mg PO Q4H PRN PRN Reason: Pain, Mild (1-3) Ergocalciferol (Drisdol 50,000 Intl Units Cap) 1 cap PO Q7D [facility] Last Admin: 10/27/18 10:53 Dose: 1 cap Ferrous Sulfate (Feosol) 324 mg PO DAILY [facility] Last Admin: 10/27/18 10:44 Dose: 324 mg Heparin Sodium (Porcine) (Heparin) 5,000 units SC Q12 [facility]; Protocol Last Admin: 10/26/18 10:33 Dose: Not Given Vancomycin HCl 1.25 gm/ Sodium (Chloride) 500 mls @ 167 mls/hr IVPB ONCE [facility]; Protocol Stop: 10/27/18 22:59 Insulin Human Regular (Humulin R Low) 0 units SC ACHS [facility]; Protocol Last Admin: 10/27/18 08:45 Dose: Not Given Levothyroxine Sodium (Synthroid) 25 mcg PO 0600 [facility] Last Admin: 10/26/18 06:12 Dose: 25 mcg Lisinopril (Zestril) 2.5 mg PO DAILY [facility] Last Admin: 10/27/18 10:54 Dose: Not Given Metoprolol Tartrate (Lopressor) 50 mg PO BRKDIN [facility] Last Admin: 10/27/18 08:44 Dose: 50 mg Ondansetron HCl (Zofran Tab) 4 mg PO Q8H PRN PRN Reason: Nausea/Vomiting Sevelamer HCl (Renagel) 1,600 mg PO TID [facility] Last Admin: 10/27/18 14:33 Dose: 1,600 mg Vitamin B Complex/Vit C/Folic Acid (Nephro-Yocasta) 1 tab PO 0800 [facility] Last Admin: 10/27/18 08:44 Dose: 1 tab Results - Vital Signs Recent Vital Signs: Last Vital Signs Temp 100 F H 10/27/18 14:00 Pulse 78 10/27/18 14:00 Resp 16 10/27/18 14:00 BP 127/69 10/27/18 14:00 Pulse Ox 100 10/27/18 14:00 - Labs Result Diagrams: 10/25/18 16:30 10/25/18 18:25 Labs: Laboratory Results - last 24 hr 10/26/18 10/27/18 10/27/18 21:33 05:35 05:35 POC Glucose (mg/dL) 130 H Hemoglobin A1c 3.6 L D Triglycerides 63 Cholesterol 163 LDL Cholesterol Direct 86 HDL Cholesterol 36 TSH 3rd Generation 10/27/18 10/27/18 10/27/18 05:35 06:50 11:34 POC Glucose (mg/dL) 103 136 H Hemoglobin A1c Triglycerides Cholesterol LDL Cholesterol Direct HDL Cholesterol TSH 3rd Generation 3.14 10/27/18 16:00 POC Glucose (mg/dL) 142 H Hemoglobin A1c Triglycerides Cholesterol LDL Cholesterol Direct HDL Cholesterol TSH 3rd Generation Assessment & Plan - Assessment and Plan (Free Text) Assessment: Infectious diseases Attending Physician Attestation Patient seen and examined, discussed with general medical practitioner. I have reviewed the patient's history of present illness, past medical, social, personal and family histories, pertinent physical exam findings, course so far in this hospital admission, pertinent laboratory and imaging results. I agree with the above findings, assessment and plan. In addition, will await OR cultures to guide antibiotic therapy for patient with right foot gangrene along the 5th toe. For OR tomorrow. Patient does not have SIRS or signs of systemic infection. Can give Vancomycin prophylaxis prior to OR.
--- NOTE | 2018-10-27 13:58 | PN ---
DATE: 10/27/2018 REASON FOR CONSULTATION AND FOLLOWUP: Preop evaluation, risk stratification, history of end-stage renal disease on dialysis, history of severe PAD status post left BKA, status post right tarso-metatarsal amputation for amputation of right toe. SUBJECTIVE: The patient had an echocardiography done yesterday that revealed ejection fraction 35% to 40%, aortic sclerosis, mild mitral regurgitation, trace tricuspid regurgitation, RV systolic pressure 17. This note is in addition to the one dictated by nurse practitioner, Xiomara Ann. IMPRESSION: A 63-year-old male with past medical history of end-stage renal disease, severe peripheral artery disease status post left below knee amputation, status post right tarso-metatarsal amputation, for amputation of right toe. No evidence of angina, no evidence of arrhythmia or congestive heart failure. RECOMMENDATIONS: The patient is cleared to go for surgery. Continue beta levi. We will add low dose of DEL inhibitors for decreased left ventricular function. We will discontinue amlodipine. We will follow with you. We will clear the patient as mentioned yesterday with [id number] risk because of low risk procedure. We will put the as well. Thank you for providing us the opportunity in taking care of the patient, Theodore Pedersen. Jeff Ashraf MD
--- NOTE | 2018-10-27 14:27 | HP ---
DATE OF EXAM: 10/26/2018 REASON FOR ADMISSION: The patient is 63-year-old male came in because of right small toe gangrene. HISTORY OF PRESENT ILLNESS: A 63-year-old male with history of hypertension, chronic renal failure, diabetes type 2, on hemodialysis for chronic renal failure via AV shunts. The patient came in from [facility] with gangrene of the right small toe, that was diverted to ER for admission for possible surgical amputation. The patient had history of peripheral vascular disease. He quit smoking years ago. He has no other complaints according to him. No fever. No chills. No nausea. No vomiting and has not complained of any pain in his torso either. No other new complaint. The patient does have a history of left below knee amputation and also right foot, there is a history of previous surgeries on the other toes. PAST MEDICAL HISTORY: As I mentioned. 1. Chronic renal failure, on hemodialysis via AV shunt. 2. Diabetes mellitus, on insulin. 3. Hypertension, chronic. 4. Peripheral vascular disease. 5. Hypothyroidism. 6. History of seizure disorders. MEDICATIONS: At the residential, he was getting NovoLog before meals, Zofran p.r.n., Renagel 1600 p.o. twice daily, Plavix 75 p.o. daily, Norvasc 10 mg daily, metoprolol 50 p.o. twice daily, B complex with vitamin C once a day, levothyroxine, he has been taking 25 mcg daily, iron pills 1 tablet daily, vitamin D once a week and baby aspirin 81 mg daily. ALLERGIES: NO KNOWN ALLERGY. SOCIAL HISTORY: He is a residential patient. FAMILY HISTORY: Noncontributory. REVIEW OF SYSTEMS: As in the present illness, he does have anemia from gastritis, has history of hypertension, does have difficulty walking because of amputations and current gangrenes. He is on dialysis. Legally blind, left eye is done. He has diabetic nephropathy, renal failure on dialysis. Please look at the past medical history on the previous history. PHYSICAL EXAMINATION: GENERAL: The patient is alert, awake, oriented to the place. His memory is good. VITAL SIGNS: Temperature 98.1, heart rate 69, blood pressure 163/80, respirations 20 and sat 99%. HEAD AND NECK: Normal. No JVD. No thyromegaly. CHEST: Clear bilateral. CARDIAC: First sound and second sound normal. No murmur, rub or gallop. ABDOMEN: Soft and nontender. EXTREMITIES: Left below knee amputations old healed scar and right little toe black gangrenous, also the skin is very shiny, no hairs consistent with previous peripheral vascular disease and also scar of previous toes amputations. NEUROLOGICAL: The patient move all extremities. He is alert, awake and oriented x3. LABORATORY DATA: The patient had chemistry will see sodium 135, potassium 4.6, chloride 98, bicarb 27, BUN 43, creatinine 6.6, blood sugar 147 and in admission was 79, calcium 8.9, total bilirubin, AST, ALT and alk phos all are normal. CBC noted for white count 8.3, hemoglobin 10.7, hematocrit 33.8 and platelets 282. PT and PTT was within normal range. The patient also had an EKG which is sinus rhythm, LVH. Chest x-ray, no active disease. The patient also had an echocardiography which shows left ventricular hypertrophy with diminished left ventricular functions and sclerotic aortic valve and IVC collapse more than 50%. No AICD. IMPRESSION AND PLAN: This is a 63-year-old male with history of significant vascular disease including coronary artery disease, hypertension, diabetes with diabetic nephropathy, on hemodialysis with AV fistula, history of seizure disorder, legally blind, came in with gangrene of his right little toe small toe with previous below knee amputation and with history of peripheral vascular disease. We will admit the patient's for gangrene of the right small toe. We will get vascular surgeon, Dr. Sergey Jacobs, for BEAU evaluation of vascular status. We will give dose vancomycin. We will get Infectious Disease consult Dr. Vincent, Renal consult Dr. Dipti Simon to maintain hemodialysis and manage hypertension. Also, we will get Cardiology clearance before surgery, and we will follow up on daily basis. We will resume all his medication. We will hold off an aspirin and Plavix because of the surgery coming and we will resume all his medicines. Currently, he got dose vancomycin 1 time. He was given vitamin D once a week, iron pills twice a day. He received influenza vaccine. He is on heparin subcutaneous daily for deep venous thrombosis prophylaxis. He is on insulin coverage. We will give algorithm with Humalog, metoprolol 50 twice daily, vitamin B-complex , Norvasc 10, pneumococcal vaccine was given, Renagel 1600 mg 3 times daily, Synthroid 25 mcg, Tylenol, and Zofran p.r.n. We will continue this medication. We will follow up. The patient was seen on hemodialysis, seems stable and continue hemodialysis and we will schedule the surgery as per Dr. Blakely the Podiatry consult who already seeing the patient and plans for surgery. Feliciano Manriquez MD
--- NOTE | 2018-10-27 16:33 | CP.PCM.PN ---
Subjective - Date & Time of Evaluation Date of Evaluation: 10/27/18 Time of Evaluation: 16:32 - Subjective Subjective: Nephrology Consultation Note: Assessment: Stable toe gangrene Diabetic chronic Kidney Disease (E11.22) Hypertensive Chronic Kidney Disease (I12.0) End stage renal disease (N18.6) dependence on hemodialysis (Z99.2) (TTS) via AVF Anemia (D64.9), Hyperphosphatemia (E83.39), Secondary Hyperparathyroidism (E21.1), HTN (I12.0) PVD sys CHF LVEf 35-40% Plan: Will plan for HD TTS schedule as ordered. Continue with Nephrovite 1 tab/day. PRBC as needed for anemia. not on HILTON with dialysis as last Hb 10.7 Continue with phos binders, check last phos level BP control with meds as ordered. Patient now on RAAS levi, low dose lisinopril Glycemic control, Dialysis consistent diet Further work up/management as per primary team Dose meds/antibiotics (if needed) for ESRD status. Avoid fleets enema/magnesium based laxatives. podiatry cardio follow up appreciated pt planned for toe amputation 10/28/18 Thanks for allowing me to participate in care of your patient. Will follow patient with you. Please call if any Qs Dr Alfred Resendez Office: [phone] Chief Complaint; toe gangrene HPI: Pt is a 63 M with hx of ESRD on hemodialysis (TTS) via AVF , last dialysis sat, chronic anemia, hyperphosphatemia, secondary hyperparathyroidism, Diabetes Mellitus, hypertension PVD, legally blind, left BKA presented with complaints of foot 5th toe gangrene. Renal consult requested for ESRD management. otherwise he feels usual health ROS: Cardiovascular: No chest pain. Pulmonary: No shortness of breath Gastrointestinal: denies abdominal pain No nausea. No vomiting. Genitourinary: No pain while urinating. Denies blood in urine. All other negative except as mentioned in HPI Physical Examination: General Appearance: Comfortable, in no acute respiratory distress, co-operative . Vitals reviewed and noted as below Head; Atraumatic, normocephalic ENT: no ulcers no thrush. Tongue is midline. Oropharynx: no rash or ulcers. EYES: Pupils are equal, round and reactive to light accommodation. Eye muscles and extraocular movement intact. Sclera is anicteric. Neck; supple no lymphadenopathy, no thyromegaly or bruit Lungs: Normal respiratory rate/effort. Breath sounds bilateral equal and clear Heart: Normal rate. s1s2 normal. No rub or gallop. Extremities: no edema. No varicose veins. left BKA. rt foot most toe amputated. has dry gangrene 5th toe Neurological: Patient is alert, awake and oriented to person, place and time. No focal deficit. Strength bilateral appropriate and equal Skin: Warm and dry. Normal turgor. No rash. Palpitation: Normal elasticity for age Abdomen: Abdomen is soft. Bowel sounds +. There is no abdominal tenderness, no guarding/rigidity or organomegaly Psych: normal insight and normal affect/mood MSK: no joint tenderness or swelling. Digits and nails normal, no deformity : kidney or bladder not palpable Access: AVF Labs/imaging reviewed. Past medical history, past surgical history, family history, social history, allergy reviewed and noted as below Family Hx: no hx of CKD. Non contributory Objective - Vital Signs/Intake and Output Vital Signs (last 24 hours): Temp Pulse Resp BP Pulse Ox 100 F H 78 16 127/69 100 10/27/18 14:00 10/27/18 14:00 10/27/18 14:00 10/27/18 14:00 10/27/18 14:00 - Medications Medications: Current Medications Acetaminophen (Tylenol 325mg Tab) 650 mg PO Q4H PRN PRN Reason: Pain, Mild (1-3) Ergocalciferol (Drisdol 50,000 Intl Units Cap) 1 cap PO Q7D [facility] Last Admin: 10/27/18 10:53 Dose: 1 cap Ferrous Sulfate (Feosol) 324 mg PO DAILY [facility] Last Admin: 10/27/18 10:44 Dose: 324 mg Heparin Sodium (Porcine) (Heparin) 5,000 units SC Q12 [facility]; Protocol Last Admin: 10/26/18 10:33 Dose: Not Given Vancomycin HCl 1.25 gm/ Sodium (Chloride) 500 mls @ 167 mls/hr IVPB ONCE ONE; Protocol Stop: 10/27/18 22:59 Insulin Human Regular (Humulin R Low) 0 units SC ACHS [facility]; Protocol Last Admin: 10/27/18 08:45 Dose: Not Given Levothyroxine Sodium (Synthroid) 25 mcg PO 0600 [facility] Last Admin: 10/26/18 06:12 Dose: 25 mcg Lisinopril (Zestril) 2.5 mg PO DAILY [facility] Last Admin: 10/27/18 10:54 Dose: Not Given Metoprolol Tartrate (Lopressor) 50 mg PO BRKDIN [facility] Last Admin: 10/27/18 08:44 Dose: 50 mg Ondansetron HCl (Zofran Tab) 4 mg PO Q8H PRN PRN Reason: Nausea/Vomiting Sevelamer HCl (Renagel) 1,600 mg PO TID [facility] Last Admin: 10/27/18 14:33 Dose: 1,600 mg Vitamin B Complex/Vit C/Folic Acid (Nephro-Yocasta) 1 tab PO 0800 [facility] Last Admin: 10/27/18 08:44 Dose: 1 tab - Labs Labs: 10/25/18 16:30 10/25/18 18:25 PT 11.2 SECONDS (9.4-12.5) 10/25/18 16:30 INR 0.98 10/25/18 16:30 APTT 30.3 Seconds (25.1-36.5) 10/25/18 16:30
[2018-10-27] MEDS ORDERED: Vancomycin 1.25 GM in Sodium Chloride 0.9% 500 ML IVPB ONE (20:00)
--- NOTE | 2018-10-28 01:14 | PN ---
DATE: 10/27/2018 SUBJECTIVE: The patient is comfortable. No distress. Afebrile. Going for surgery tomorrow. Seen by college dean. Cleared by other specialists. The patient is comfortable. Has no complaints. PHYSICAL EXAMINATION: VITAL SIGNS: Temperature is 99.7, heart rate 92, blood pressure 126/65, respirations 18, saturation 96% on room air. HEAD AND NECK: Normal. CHEST: Clear bilateral. CARDIAC: First sound and second sounds normal. ABDOMEN: Soft and nontender. EXTREMITIES: There is right above-knee amputation. Small toe gangrene on the left side. NEUROLOGICAL: He moves all extremities. LABORATORY STUDIES: White count 8.3, hemoglobin 10.7, hematocrit 33.8, platelets 288. PT and PTT are normal. Chemistries: Sodium is 135, potassium 4.6, chloride 98, bicarb 29, BUN 43, creatinine 6.6, and calcium 8.9. Liver function tests are normal. IMPRESSION AND PLAN: 1. Gangrene, left toe. The patient is going for surgery tomorrow. History of peripheral vascular disease, hypertension, coronary artery disease, diabetes. The patient is seen by college dean. Blood sugars running in the 100, 130, 140. No spiking. The patient is hemodynamically stable and medically stable for surgery with acceptable risk. The patient has multiple medical problems with moderate risks of cardiovascular complications including also pulmonary. The patient is medically stable for surgery. 2. Chronic renal failure, on hemodialysis. 3. Diabetes, type 2, on insulin coverage. 4. Peripheral vascular disease, coronary artery disease, the patient has low ejection fraction of 40%, hypothyroidism, below-knee amputation on the right leg, stable blood pressure, hypertension is stable. PLAN: Continue current treatment. Follow up clinically. I just want to review medications. The patient is getting vitamin D once a week; iron pills twice a day; heparin subcu, hold before surgery; insulin coverage, low algorithm; Lopressor 50 mg b.i.d.; Nephro-Yocasta once a day; Renagel 1600 mg p.o. t.i.d.; Synthroid 25 mcg once a day; Tylenol every 4 hours p.r.n.; vancomycin 1.25 g IV once; Zestril 2.5 mg p.o. daily; and Zofran 4 mg every 8 hours p.r.n. Continue current therapy. The patient has been seen by cardiology consults. Has been seen by nephrology consults. Also seen by infectious disease consults. He is also seen by Dr. Sergey Jacobs, Vascular Interventional Radiology. Continue current therapy. The patient also had blood cultures x2 which was negative. Feliciano Manriquez MD
[2018-10-28] MEDS: Levothyroxine 25 MCG TAB PO SCH (06:39)
--- NOTE | 2018-10-28 07:14 | CP.PCM.PN ---
Subjective - Date & Time of Evaluation Date of Evaluation: 10/28/18 Time of Evaluation: 06:45 - Subjective Subjective: lying in bed, awake, alert, no distress Reason for consultation and follow up: Cardiac clearance for possible toe surgery, risk stratification,History of ESRD on hemodialysis 3x a week. with Left AV shunt/graft, diabetes, hypothyroidism, peripheral vascular disease, left BKA, legally blind, hypertension, hyperlipidemia, seizures, anemia, gastritis, GI bleeding, post angioplasty of right leg (07/2017), peripheral neuropathy, coronary artery disease. Seen and examined by me and Dr. Ashraf Objective - Vital Signs/Intake and Output Vital Signs (last 24 hours): Temp Pulse Resp BP Pulse Ox 98.9 F 69 19 119/73 98 10/27/18 23:29 10/27/18 23:29 10/27/18 23:29 10/27/18 23:29 10/27/18 23:29 Intake and Output: 10/28/18 10/28/18 06:59 18:59 Intake Total 0 Balance 0 - Medications Medications: Current Medications Acetaminophen (Tylenol 325mg Tab) 650 mg PO Q4H PRN PRN Reason: Pain, Mild (1-3) Ergocalciferol (Drisdol 50,000 Intl Units Cap) 1 cap PO Q7D [facility] Last Admin: 10/27/18 10:53 Dose: 1 cap Ferrous Sulfate (Feosol) 324 mg PO DAILY [facility] Last Admin: 10/27/18 10:44 Dose: 324 mg Heparin Sodium (Porcine) (Heparin) 5,000 units SC Q12 [facility]; Protocol Last Admin: 10/26/18 10:33 Dose: Not Given Insulin Human Regular (Humulin R Low) 0 units SC ACHS [facility]; Protocol Last Admin: 10/27/18 22:01 Dose: Not Given Levothyroxine Sodium (Synthroid) 25 mcg PO 0600 [facility] Last Admin: 10/28/18 06:39 Dose: Not Given Lisinopril (Zestril) 2.5 mg PO DAILY [facility] Last Admin: 10/27/18 10:54 Dose: Not Given Metoprolol Tartrate (Lopressor) 50 mg PO BRKDIN [facility] Last Admin: 10/27/18 17:48 Dose: 50 mg Ondansetron HCl (Zofran Tab) 4 mg PO Q8H PRN PRN Reason: Nausea/Vomiting Sevelamer HCl (Renagel) 1,600 mg PO TID [facility] Last Admin: 10/27/18 17:48 Dose: 1,600 mg Vitamin B Complex/Vit C/Folic Acid (Nephro-Yocasta) 1 tab PO 0800 [facility] Last Admin: 10/27/18 08:44 Dose: 1 tab - Labs Labs: 10/25/18 16:30 10/25/18 18:25 PT 11.2 SECONDS (9.4-12.5) 10/25/18 16:30 INR 0.98 10/25/18 16:30 APTT 30.3 Seconds (25.1-36.5) 10/25/18 16:30 - Constitutional Appears: Non-toxic, No Acute Distress - Head Exam Head Exam: NORMAL INSPECTION, NORMOCEPHALIC - Eye Exam Additional comments: legally blind - ENT Exam ENT Exam: Mucous Membranes Moist, Normal Exam - Respiratory Exam Respiratory Exam: Clear to Ausculation Bilateral, NORMAL BREATHING PATTERN - Cardiovascular Exam Cardiovascular Exam: +S1, +S2 - GI/Abdominal Exam GI & Abdominal Exam: Soft, Normal Bowel Sounds - Exam Additional comments: ESRD on hemodialysis 3x a week - Extremities Exam Additional comments: left AV shunt, positive bruit left BKA right 5th toe with dressing - Neurological Exam Neurological Exam: Alert, Awake - Psychiatric Exam Psychiatric exam: Normal Affect, Normal Mood - Skin Skin Exam: Dry, Normal Color, Warm Assessment and Plan - Assessment and Plan (Free Text) Assessment: A 63 year old male who was brought to the ER for [facility] due to right fifth toe gangrene. Poor historian. He does not know why he is in the hospital. chart reviewed. History of ESRD on hemodialysis 3x a week. with Left AV shunt/graft, diabetes, hypothyroidism, peripheral vascular disease, left BKA, legally blind, hypertension, hyperlipidemia, seizures, anemia, gastritis, GI bleeding, post angioplasty of right leg (07/2017),post 3rd toe digit amputation 07/2018, peripheral neuropathy, coronary artery disease. Normal EKG. Denies chest pain, Denies shortness of breath. No signs of ischemia, No signs of heart failure. For possible right 5th toe gangrene surgery.Echo done yesterday, Normal chamber size, LVEF 35-40%,mild aortic regurgitation,trace MR/TR, trivial pericardial effusion. no vegetation or thrombus.Moderate risk for surgery. Cleared from cardiac standpoint. Normal Lipid and TSH levels.For right 5th toe gangrene surgery/amputation today. Plan: For right 5th toe gangrene surgery/amputation today Cardiac status stable Heart rate controlled Blood pressure controlled Denies chest pain, no distress On Norvasc 10 mg daily,Synthroid 25 mcg daily,Lopressor 50 mg BID Continue current treatment Continue current medications Will follow up postoperatively Plan and treatment discussed with Dr. Ashraf
[2018-10-28] MEDS ORDERED: Lidocaine 1% Inj (20ml) ONE (07:20)
[2018-10-28] MEDS ORDERED: Bupivacaine 0.5% 50 ML IJ ONE (07:20)
[2018-10-28] MEDS ORDERED: Midazolam 2 MG/2 ML VIAL ONE (07:46)
[2018-10-28] MEDS: Multivitamin Vitamin B Complex (Nephro-Vite) Tab PO SCH (08:27)
[2018-10-28] MEDS: Insulin Reg-LOW-Coverage SC SCH ×4 (08:27→22:46)
[2018-10-28] MEDS ORDERED: Oxycodone/Acetaminophen 5/325 mg Tab PO PRN ×2 (08:49)
--- NOTE | 2018-10-28 08:54 | PCM.SURG1 ---
Surgeon's Initial Post Op Note - Surgeon's Notes Surgeon: Dr. Blakely DPM [place]er: Dr. Botello PGY1 Type of Anesthesia: IV Sedation, Local Anesthesia Administered By: Dr. Milligan Pre-Operative Diagnosis: Right foot fifth digit gangrene Operative Findings: see dictation. I: 18cc 1:1 mix 0.5% marcaine plain, 1% lidocaine plain. M: 3-0 vicryl, 3-0 nylon, betadine soaked adaptic, xeroform on heel Post-Operative Diagnosis: same Operation Performed: Right fifth ray partial amputation Specimen/Specimens Removed: Right foot fifth digit phalanges and metatarsal head Estimated Blood Loss: EBL {In ML}: 2 Blood Products Given: N/A Drains Used: No Drains Post-Op Condition: Good Date of Surgery/Procedure: 10/28/18 Time of Surgery/Procedure: 08:54
[2018-10-28] MEDS ORDERED: Sodium Chloride 0.9% 1,000 ML IV SCH (09:00)
--- NOTE | 2018-10-28 11:15 | RAD ---
Date of service: 10/28/2018 PROCEDURE: Right Foot Radiographs. HISTORY: Status post right fifth toe amputation COMPARISON: Comparison made with prior radiographs of the right foot dated 07/14/2018 FINDINGS: BONES: Interval resection left toe and distal 1/3 left 5th metatarsal with a small amount of surrounding subcutaneous emphysema and mild soft tissue swelling present. Redemonstrated are amputation changes of the right great toe to the level of the distal aspect of the 1st metatarsal. Redemonstrated are resection changes 2nd toe to the level of the mid-distal aspect proximal phalanx as well as the 3rd toe to the level PIP joint level.. Also again seen are resection changes 4th toe to the level of the distal aspect proximal phalanx. There is cortical thickening-callus formation about the distal 1/2 second metatarsal.. Findings may represent sequela of old trauma or chronic infection. Diffuse demineralization JOINTS: Normal. SOFT TISSUES: As above. Vascular calcifications present. OTHER FINDINGS: None. IMPRESSION: Interval resection left toe and distal 1/3 left 5th metatarsal with small amount of surrounding subcutaneous emphysema and swelling. Amputation changes of the remaining digits unchanged. There is cortical thickening which could represent chronic callus formation about the distal 1/2 of the 2nd metatarsal. Diffuse demineralization
[2018-10-28] MEDS ORDERED: Vancomycin 750mg 750 MG/250 ML BAG IVPB STA (13:40)
--- NOTE | 2018-10-28 13:45 | CP.PCM.PN ---
<Pk Velásquez - Last Filed: 10/28/18 13:42> Subjective - Date & Time of Evaluation Date of Evaluation: 10/28/18 Time of Evaluation: 09:15 - Subjective Subjective: Infectious disease progress note: Pt seen and examined at bedside. No acute events overnight. NPO for R 5th ray partial amputation. Patient mainly mumbles however denies any pain. 12 Point ROS limited and performed neg other than stated above. Objective - Vital Signs/Intake and Output Vital Signs (last 24 hours): Temp Pulse Resp BP Pulse Ox 98.7 F 70 14 138/67 100 10/28/18 09:30 10/28/18 10:01 10/28/18 10:01 10/28/18 10:01 10/28/18 10:01 Intake and Output: 10/28/18 10/28/18 06:59 18:59 Intake Total 0 Balance 0 - Medications Medications: Current Medications Acetaminophen (Tylenol 325mg Tab) 650 mg PO Q4H PRN PRN Reason: Pain, Mild (1-3) Ergocalciferol (Drisdol 50,000 Intl Units Cap) 1 cap PO Q7D [facility] Last Admin: 10/27/18 10:53 Dose: 1 cap Ferrous Sulfate (Feosol) 324 mg PO DAILY [facility] Last Admin: 10/28/18 10:07 Dose: Not Given Heparin Sodium (Porcine) (Heparin) 5,000 units SC Q12 [facility]; Protocol Last Admin: 10/26/18 10:33 Dose: Not Given Vancomycin HCl (Vancomycin 750 Mg In Ns) 750 mg in 250 mls @ 167 mls/hr IVPB TTS [facility]; Protocol Stop: 10/28/18 15:09 Insulin Human Regular (Humulin R Low) 0 units SC ACHS [facility]; Protocol Last Admin: 10/28/18 12:14 Dose: Not Given Levothyroxine Sodium (Synthroid) 25 mcg PO 0600 [facility] Last Admin: 10/28/18 06:39 Dose: Not Given Lisinopril (Zestril) 2.5 mg PO DAILY [facility] Last Admin: 10/28/18 09:54 Dose: Not Given Metoprolol Tartrate (Lopressor) 50 mg PO BRKDIN [facility] Last Admin: 10/28/18 08:27 Dose: Not Given Ondansetron HCl (Zofran Tab) 4 mg PO Q8H PRN PRN Reason: Nausea/Vomiting Oxycodone/Acetaminophen (Percocet 5/325 Mg Tab) 1 tab PO Q4H PRN PRN Reason: Pain, moderate (4-7) Stop: 10/31/18 08:50 Oxycodone/Acetaminophen (Percocet 5/325 Mg Tab) 2 tab PO Q4H PRN PRN Reason: Pain, severe (8-10) Stop: 10/31/18 08:50 Sevelamer HCl (Renagel) 1,600 mg PO TID [facility] Last Admin: 10/28/18 13:38 Dose: Not Given Vitamin B Complex/Vit C/Folic Acid (Nephro-Yocasta) 1 tab PO 0800 [facility] Last Admin: 10/28/18 08:27 Dose: Not Given - Labs Labs: 10/25/18 16:30 10/25/18 18:25 PT 11.2 SECONDS (9.4-12.5) 10/25/18 16:30 INR 0.98 10/25/18 16:30 APTT 30.3 Seconds (25.1-36.5) 10/25/18 16:30 - Constitutional Appears: No Acute Distress - Head Exam Head Exam: ATRAUMATIC, NORMOCEPHALIC - Eye Exam Eye Exam: EOMI - ENT Exam ENT Exam: Mucous Membranes Moist - Respiratory Exam Respiratory Exam: Clear to Ausculation Bilateral. absent: Wheezes - Cardiovascular Exam Cardiovascular Exam: REGULAR RHYTHM, +S1, +S2 - GI/Abdominal Exam GI & Abdominal Exam: Soft. absent: Tenderness - Extremities Exam Extremities Exam: absent: Calf Tenderness Additional comments: RLE splint in place - Neurological Exam Neurological Exam: Alert, Awake - Psychiatric Exam Psychiatric exam: Normal Mood - Skin Skin Exam: Dry, Warm Assessment and Plan - Assessment and Plan (Free Text) Assessment: 63M with pmhx of ESRD on hemodialysis (, , thu), chronic anemia,secondary hyperparathyroidism, DM, hypertension, PVD, legally blind, left BKA (2017) presents from [facility] with right foot gangrene. S/p 5th ray partial amputation today - Vanc started with dialysis days - F/u podiatry recs - F/u OR cultures and path - F/u vascular, and nephro consult and recs - Cont to monitor Case and plan was reviewed and discussed with Dr Casper <Jose Casper - Last Filed: 10/28/18 14:14> Objective - Vital Signs/Intake and Output Vital Signs (last 24 hours): Temp Pulse Resp BP Pulse Ox 98.7 F 70 14 138/67 100 10/28/18 09:30 10/28/18 10:01 10/28/18 10:01 10/28/18 10:01 10/28/18 10:01 Intake and Output: 10/28/18 10/28/18 06:59 18:59 Intake Total 0 Balance 0 - Medications Medications: Current Medications Acetaminophen (Tylenol 325mg Tab) 650 mg PO Q4H PRN PRN Reason: Pain, Mild (1-3) Ergocalciferol (Drisdol 50,000 Intl Units Cap) 1 cap PO Q7D [facility] Last Admin: 10/27/18 10:53 Dose: 1 cap Ferrous Sulfate (Feosol) 324 mg PO DAILY [facility] Last Admin: 10/28/18 10:07 Dose: Not Given Heparin Sodium (Porcine) (Heparin) 5,000 units SC Q12 [facility]; Protocol Last Admin: 10/26/18 10:33 Dose: Not Given Vancomycin HCl (Vancomycin 750 Mg In Ns) 750 mg in 250 mls @ 167 mls/hr IVPB [facility]TS [facility]; Protocol Stop: 10/28/18 15:09 Meropenem/Sodium Chloride (Merrem Iv 500 Mg/Ns 50 Ml) 500 mg in 50 mls @ 100 mls/hr IVPB Q24H [facility]; Protocol Stop: 11/04/18 14:16 Insulin Human Regular (Humulin R Low) 0 units SC ACHS [facility]; Protocol Last Admin: 10/28/18 12:14 Dose: Not Given Levothyroxine Sodium (Synthroid) 25 mcg PO 0600 [facility] Last Admin: 10/28/18 06:39 Dose: Not Given Lisinopril (Zestril) 2.5 mg PO DAILY [facility] Last Admin: 10/28/18 09:54 Dose: Not Given Metoprolol Tartrate (Lopressor) 50 mg PO BRKDIN [facility] Last Admin: 10/28/18 08:27 Dose: Not Given Ondansetron HCl (Zofran Tab) 4 mg PO Q8H PRN PRN Reason: Nausea/Vomiting Oxycodone/Acetaminophen (Percocet 5/325 Mg Tab) 1 tab PO Q4H PRN PRN Reason: Pain, moderate (4-7) Stop: 10/31/18 08:50 Oxycodone/Acetaminophen (Percocet 5/325 Mg Tab) 2 tab PO Q4H PRN PRN Reason: Pain, severe (8-10) Stop: 10/31/18 08:50 Sevelamer HCl (Renagel) 1,600 mg PO TID [facility] Last Admin: 10/28/18 13:38 Dose: Not Given Vitamin B Complex/Vit C/Folic Acid (Nephro-Yocasta) 1 tab PO 0800 [facility] Last Admin: 10/28/18 08:27 Dose: Not Given - Labs Labs: 10/28/18 13:30 10/28/18 13:30 PT 11.2 SECONDS (9.4-12.5) 10/25/18 16:30 INR 0.98 10/25/18 16:30 APTT 30.3 Seconds (25.1-36.5) 10/25/18 16:30 Assessment and Plan - Assessment and Plan (Free Text) Assessment: Infectious diseases Attending Physician Attestation Patient seen and examined, discussed with medical claims representative. I have reviewed the patient's history of present illness, past medical, social, personal and family histories, pertinent physical exam findings, course so far in this hospital admission, pertinent laboratory and imaging results. I agree with the above findings, assessment and plan. In addition, patient with right foot gangrene along the 5th toe, now with gram negative bacilli bacteremia as well. For OR today and will await OR cultures. Will start intermittent Vancomycin and Merrem and will monitor clinically.
[2018-10-28 14:03] LABS: BASO # 0.04 K/mm3 (0.0-2.0); BASO % 0.5 % (0.0-3.0); EOS # 0.3 (0.0-0.7); EOS % 3.6 % (1.5-5.0); GRAN # 5.56 (1.4-6.5); GRAN % 68.3 % (50.0-68.0); LYMPH # 1.3 (1.2-3.4); LYMPH % 16.1 % (22.0-35.0); MEAN CORPUSCULAR HEMOGLOBIN 31.9 pg (25.0-35.0); MEAN CORPUSCULAR HGB CONC 31.3 g/dl (31.0-37.0); MEAN PLATELET VOLUME 9.9 fl (7.0-11.0); MONO # 0.9 (0.1-0.6); MONO % 11.5 % (1.0-6.0); RBC 2.51 10^6/uL (3.5-6.1); WHITE BLOOD COUNT 8.1 10^3/uL (4.5-11.0)
[2018-10-28 14:12] LABS: CALCIUM 8.2 mg/dL (8.4-10.5)
--- NOTE | 2018-10-28 14:22 | CP.PCM.PN ---
Subjective - Date & Time of Evaluation Date of Evaluation: 10/28/18 Time of Evaluation: 14:18 - Subjective Subjective: Nephrology Consultation Note: Assessment: Stable Rt foot 5th toe gangrene s/p amputation 10/28/18 GNR sepsis Diabetic chronic Kidney Disease (E11.22) Hypertensive Chronic Kidney Disease (I12.0) End stage renal disease (N18.6) dependence on hemodialysis (Z99.2) (TTS) via AVF Anemia (D64.9), Hyperphosphatemia (E83.39), Secondary Hyperparathyroidism (E21.1), HTN (I12.0) PVD sys CHF LVEF 35-40% Plan: Will plan for HD TTS schedule as ordered. Continue with Nephrovite 1 tab/day. PRBC as needed for anemia. on HILTON with dialysis as last Hb 8 Continue with phos binders but hold 1-2 day and resume @ lower dose last phos level 2.4 BP control with meds as ordered. Patient now on RAAS levi, low dose lisinopril Glycemic control, Dialysis consistent diet Further work up/management as per primary team Dose meds/antibiotics (if needed) for ESRD status. Avoid fleets enema/magnesium based laxatives. podiatry cardio follow up appreciated pt planned for toe amputation 10/28/18 Thanks for allowing me to participate in care of your patient. Will follow patient with you. Please call if any Qs Dr Alfred Resendez Office: [phone] Chief Complaint; toe gangrene HPI: Pt is a 63 M with hx of ESRD on hemodialysis (TTS) via AVF , last dialysis sat, chronic anemia, hyperphosphatemia, secondary hyperparathyroidism, Diabetes Mellitus, hypertension PVD, legally blind, left BKA presented with complaints of foot 5th toe gangrene. Renal consult requested for ESRD management. otherwise he feels usual health ROS: Cardiovascular: No chest pain. Pulmonary: No shortness of breath Gastrointestinal: denies abdominal pain No nausea. No vomiting. Genitourinary: No pain while urinating. Denies blood in urine. All other negative except as mentioned in HPI Physical Examination: seen on HD General Appearance: Comfortable, in no acute respiratory distress, co-operative . Vitals reviewed and noted as below Head; Atraumatic, normocephalic ENT: no ulcers no thrush. Tongue is midline. Oropharynx: no rash or ulcers. EYES: Pupils are equal, round and reactive to light accommodation. Eye muscles a nd extraocular movement intact. Sclera is anicteric. Neck; supple no lymphadenopathy, no thyromegaly or bruit Lungs: Normal respiratory rate/effort. Breath sounds bilateral equal and clear Heart: Normal rate. s1s2 normal. No rub or gallop. Extremities: no edema. No varicose veins. left BKA. Rt foot dressed Neurological: Patient is alert, awake and oriented to person, place and time. No focal deficit. Strength bilateral appropriate and equal Skin: Warm and dry. Normal turgor. No rash. Palpitation: Normal elasticity for age Abdomen: Abdomen is soft. Bowel sounds +. There is no abdominal tenderness, no guarding/rigidity or organomegaly Psych: normal insight and normal affect/mood MSK: no joint tenderness or swelling. : kidney or bladder not palpable Access: AVF Labs/imaging reviewed. Past medical history, past surgical history, family history, social history, allergy reviewed and noted as below Family Hx: no hx of CKD. Non contributory Objective - Vital Signs/Intake and Output Vital Signs (last 24 hours): Temp Pulse Resp BP Pulse Ox 98.7 F 70 14 138/67 100 10/28/18 09:30 10/28/18 10:01 10/28/18 10:01 10/28/18 10:01 10/28/18 10:01 Intake and Output: 10/28/18 10/28/18 06:59 18:59 Intake Total 0 Balance 0 - Medications Medications: Current Medications Acetaminophen (Tylenol 325mg Tab) 650 mg PO Q4H PRN PRN Reason: Pain, Mild (1-3) Ergocalciferol (Drisdol 50,000 Intl Units Cap) 1 cap PO Q7D [facility] Last Admin: 10/27/18 10:53 Dose: 1 cap Ferrous Sulfate (Feosol) 324 mg PO DAILY [facility] Last Admin: 10/28/18 10:07 Dose: Not Given Heparin Sodium (Porcine) (Heparin) 5,000 units SC Q12 [facility]; Protocol Last Admin: 10/26/18 10:33 Dose: Not Given Vancomycin HCl (Vancomycin 750 Mg In Ns) 750 mg in 250 mls @ 167 mls/hr IVPB [facility]; Protocol Stop: 10/28/18 15:09 Meropenem/Sodium Chloride (Merrem Iv 500 Mg/Ns 50 Ml) 500 mg in 50 mls @ 100 mls/hr IVPB Q24H [facility]; Protocol Stop: 11/04/18 14:16 Insulin Human Regular (Humulin R Low) 0 units SC ACHS [facility]; Protocol Last Admin: 10/28/18 12:14 Dose: Not Given Levothyroxine Sodium (Synthroid) 25 mcg PO 0600 [facility] Last Admin: 10/28/18 06:39 Dose: Not Given Lisinopril (Zestril) 2.5 mg PO DAILY [facility] Last Admin: 10/28/18 09:54 Dose: Not Given Metoprolol Tartrate (Lopressor) 50 mg PO BRKDIN [facility] Last Admin: 10/28/18 08:27 Dose: Not Given Ondansetron HCl (Zofran Tab) 4 mg PO Q8H PRN PRN Reason: Nausea/Vomiting Oxycodone/Acetaminophen (Percocet 5/325 Mg Tab) 1 tab PO Q4H PRN PRN Reason: Pain, moderate (4-7) Stop: 10/31/18 08:50 Oxycodone/Acetaminophen (Percocet 5/325 Mg Tab) 2 tab PO Q4H PRN PRN Reason: Pain, severe (8-10) Stop: 10/31/18 08:50 Sevelamer HCl (Renagel) 1,600 mg PO TID [facility] Last Admin: 10/28/18 13:38 Dose: Not Given Vitamin B Complex/Vit C/Folic Acid (Nephro-Yocasta) 1 tab PO 0800 [facility] Last Admin: 10/28/18 08:27 Dose: Not Given - Labs Labs: 10/28/18 13:30 10/28/18 13:30 PT 11.2 SECONDS (9.4-12.5) 10/25/18 16:30 INR 0.98 10/25/18 16:30 APTT 30.3 Seconds (25.1-36.5) 10/25/18 16:30
[2018-10-28] MEDS ORDERED: Darbepoetin Alfa 60 mcg/ml Inj IVP SCH (14:30)
[2018-10-28] MEDS: MEROPENEM 500 MG in NS 500 MG/50 ML BAG IVPB SCH ×2 (18:03→18:31)
[2018-10-29] MEDS: Vancomycin 750mg 750 MG/250 ML BAG IVPB SCH (03:56)
[2018-10-29] MEDS: Levothyroxine 25 MCG TAB PO SCH (05:40)
--- NOTE | 2018-10-29 06:48 | CP.PCM.PN ---
Subjective - Date & Time of Evaluation Date of Evaluation: 10/29/18 Time of Evaluation: 06:20 - Subjective Subjective: Awake, alert, no distress Reason for consultation and follow up: Cardiac clearance for toe surgery, risk stratification.History of ESRD on hemodialysis 3x a week. with Left AV shunt/graft, diabetes, hypothyroidism, peripheral vascular disease, left BKA, legally blind, hypertension, hyperlipidemia, seizures, anemia, gastritis, GI b leeding, post angioplasty of right leg (07/2017), peripheral neuropathy, coronary artery disease. Status post right foot fifth digit phalange and metatarsal amputation. Seen and examined by me and Dr. Ashraf Objective - Vital Signs/Intake and Output Vital Signs (last 24 hours): Temp Pulse Resp BP Pulse Ox 98.4 F 72 18 130/61 95 10/28/18 22:51 10/28/18 22:51 10/28/18 22:51 10/28/18 22:51 10/28/18 22:51 Intake and Output: 10/28/18 10/29/18 18:59 06:59 Intake Total 690 360 Balance 690 360 - Medications Medications: Current Medications Acetaminophen (Tylenol 325mg Tab) 650 mg PO Q4H PRN PRN Reason: Pain, Mild (1-3) Darbepoetin Rob (Aranesp) 60 mcg IVP QWK [facility] Ergocalciferol (Drisdol 50,000 Intl Units Cap) 1 cap PO Q7D [facility] Last Admin: 10/27/18 10:53 Dose: 1 cap Ferrous Sulfate (Feosol) 324 mg PO DAILY [facility] Last Admin: 10/28/18 10:07 Dose: Not Given Heparin Sodium (Porcine) (Heparin) 5,000 units SC Q12 [facility]; Protocol Last Admin: 10/28/18 22:47 Dose: 5,000 units Meropenem/Sodium Chloride (Merrem Iv 500 Mg/Ns 50 Ml) 500 mg in 50 mls @ 100 mls/hr IVPB Q24H [facility]; Protocol Stop: 11/04/18 14:16 Last Admin: 10/28/18 18:31 Dose: Not Given Vancomycin HCl (Vancomycin 750 Mg In Ns) 750 mg in 250 mls @ 167 mls/hr IVPB TTS@2200 [facility]; Protocol Last Admin: 10/29/18 03:56 Dose: Not Given Insulin Human Regular (Humulin R Low) 0 units SC ACHS [facility]; Protocol Last Admin: 10/28/18 22:46 Dose: Not Given Levothyroxine Sodium (Synthroid) 25 mcg PO 0600 [facility] Last Admin: 10/29/18 05:40 Dose: 25 mcg Lisinopril (Zestril) 2.5 mg PO DAILY [facility] Last Admin: 10/28/18 09:54 Dose: Not Given Metoprolol Tartrate (Lopressor) 50 mg PO BRKDIN [facility] Last Admin: 10/28/18 18:00 Dose: 50 mg Ondansetron HCl (Zofran Tab) 4 mg PO Q8H PRN PRN Reason: Nausea/Vomiting Oxycodone/Acetaminophen (Percocet 5/325 Mg Tab) 1 tab PO Q4H PRN PRN Reason: Pain, moderate (4-7) Stop: 10/31/18 08:50 Oxycodone/Acetaminophen (Percocet 5/325 Mg Tab) 2 tab PO Q4H PRN PRN Reason: Pain, severe (8-10) Stop: 10/31/18 08:50 Sevelamer HCl (Renagel) 800 mg PO TID [facility] Vitamin B Complex/Vit C/Folic Acid (Nephro-Yocasta) 1 tab PO 0800 [facility] Last Admin: 10/28/18 08:27 Dose: Not Given - Labs Labs: 10/28/18 13:30 10/28/18 13:30 PT 11.2 SECONDS (9.4-12.5) 10/25/18 16:30 INR 0.98 10/25/18 16:30 APTT 30.3 Seconds (25.1-36.5) 10/25/18 16:30 - Constitutional Appears: Non-toxic, No Acute Distress - Head Exam Head Exam: NORMAL INSPECTION, NORMOCEPHALIC - Eye Exam Additional comments: legally blind - ENT Exam ENT Exam: Mucous Membranes Moist - Respiratory Exam Respiratory Exam: Clear to Ausculation Bilateral, NORMAL BREATHING PATTERN - Cardiovascular Exam Cardiovascular Exam: +S1, +S2 - Exam Additional comments: ESRD on hemodialysis 3x a week - Extremities Exam Additional comments: left BKA right foot dressing left arm AV shunt positive bruit - Neurological Exam Neurological Exam: Alert, Awake - Psychiatric Exam Psychiatric exam: Normal Affect, Normal Mood - Skin Skin Exam: Dry, Normal Color, Warm Assessment and Plan - Assessment and Plan (Free Text) Assessment: A 63 year old male who was brought to the ER for [facility] due to right fifth toe gangrene. Poor historian. He does not know why he is in the hospital. chart reviewed. History of ESRD on hemodialysis 3x a week. with Left AV shunt/graft, diabetes, hypothyroidism, peripheral vascular disease, left BKA, legally blind, hypertension, hyperlipidemia, seizures, anemia, gastritis, GI bleeding, post angioplasty of right leg (07/2017),post 3rd toe digit amputation 07/2018, peripheral neuropathy, coronary artery disease. Normal EKG. Denies chest pain, Denies shortness of breath. No signs of ischemia, No signs of heart failure. For possible right 5th toe gangrene surgery.Echo done yesterday, Normal chamber size, LVEF 35-40%,mild aortic regurgitation,trace MR/TR, trivial pericardial effusion. no vegetation or thrombus.Moderate risk for surgery. Cleared from cardiac standpoint. Normal Lipid and TSH levels. Status post right 5th digit phalange and metatarsal amputation POD#1. Clinically stable. Had hemodialysis yesterday after surgery. Plan: Denies chest pain, no distress,pleasant Status post right 5th digit phalange and metatarsal amputation POD#1 Cardiac status stable Heart rate controlled Blood pressure controlled Had hemodialysis yesterday after surgery On Norvasc 10 mg daily,Synthroid 25 mcg daily,Lopressor 50 mg BID Continue current treatment Continue current medications Will follow up Plan and treatment discussed with Dr. Asrhaf
[2018-10-29] MEDS: Insulin Reg-LOW-Coverage SC SCH ×5 (08:31→21:31)
--- NOTE | 2018-10-29 09:00 | CP.PCM.PN ---
<Pk Velásquez - Last Filed: 10/29/18 13:22> Subjective - Date & Time of Evaluation Date of Evaluation: 10/29/18 Time of Evaluation: 06:50 - Subjective Subjective: Infectious disease progress note: Pt seen and examined at bedside. No acute events overnight. s/p R 5th ray partial amputation yesterday. Patient more alert and responding to questions today. 12 Point ROS limited and performed neg other than stated above. Objective - Vital Signs/Intake and Output Vital Signs (last 24 hours): Temp Pulse Resp BP Pulse Ox 98.4 F 72 18 130/61 95 10/28/18 22:51 10/28/18 22:51 10/28/18 22:51 10/28/18 22:51 10/28/18 22:51 Intake and Output: 10/29/18 10/29/18 06:59 18:59 Intake Total 360 Balance 360 - Medications Medications: Current Medications Acetaminophen (Tylenol 325mg Tab) 650 mg PO Q4H PRN PRN Reason: Pain, Mild (1-3) Darbepoetin Rob (Aranesp) 60 mcg IVP QWK [facility] Ergocalciferol (Drisdol 50,000 Intl Units Cap) 1 cap PO Q7D [facility] Last Admin: 10/27/18 10:53 Dose: 1 cap Ferrous Sulfate (Feosol) 324 mg PO DAILY [facility] Last Admin: 10/28/18 10:07 Dose: Not Given Heparin Sodium (Porcine) (Heparin) 5,000 units SC Q12 [facility]; Protocol Last Admin: 10/28/18 22:47 Dose: 5,000 units Meropenem/Sodium Chloride (Merrem Iv 500 Mg/Ns 50 Ml) 500 mg in 50 mls @ 100 mls/hr IVPB Q24H [facility]; Protocol Stop: 11/04/18 14:16 Last Admin: 10/28/18 18:31 Dose: Not Given Vancomycin HCl (Vancomycin 750 Mg In Ns) 750 mg in 250 mls @ 167 mls/hr IVPB TTS@2200 [facility]; Protocol Last Admin: 10/29/18 03:56 Dose: Not Given Insulin Human Regular (Humulin R Low) 0 units SC ACHS [facility]; Protocol Last Admin: 10/29/18 08:31 Dose: Not Given Levothyroxine Sodium (Synthroid) 25 mcg PO 0600 [facility] Last Admin: 10/29/18 05:40 Dose: 25 mcg Lisinopril (Zestril) 2.5 mg PO DAILY [facility] Last Admin: 10/28/18 09:54 Dose: Not Given Metoprolol Tartrate (Lopressor) 50 mg PO BRKDIN [facility] Last Admin: 10/28/18 18:00 Dose: 50 mg Ondansetron HCl (Zofran Tab) 4 mg PO Q8H PRN PRN Reason: Nausea/Vomiting Oxycodone/Acetaminophen (Percocet 5/325 Mg Tab) 1 tab PO Q4H PRN PRN Reason: Pain, moderate (4-7) Stop: 10/31/18 08:50 Oxycodone/Acetaminophen (Percocet 5/325 Mg Tab) 2 tab PO Q4H PRN PRN Reason: Pain, severe (8-10) Stop: 10/31/18 08:50 Sevelamer HCl (Renagel) 800 mg PO TID [facility] Vitamin B Complex/Vit C/Folic Acid (Nephro-Yocasta) 1 tab PO 0800 [facility] Last Admin: 10/28/18 08:27 Dose: Not Given - Labs Labs: 10/28/18 13:30 10/28/18 13:30 PT 11.2 SECONDS (9.4-12.5) 10/25/18 16:30 INR 0.98 10/25/18 16:30 APTT 30.3 Seconds (25.1-36.5) 10/25/18 16:30 - Constitutional Appears: No Acute Distress - Head Exam Head Exam: ATRAUMATIC, NORMOCEPHALIC - Eye Exam Eye Exam: EOMI - ENT Exam ENT Exam: Mucous Membranes Moist - Respiratory Exam Respiratory Exam: Clear to Ausculation Bilateral (no rrw) - Cardiovascular Exam Cardiovascular Exam: REGULAR RHYTHM, +S1, +S2 - GI/Abdominal Exam GI & Abdominal Exam: Soft, Normal Bowel Sounds - Extremities Exam Additional comments: dressing in place by podiatry - Neurological Exam Neurological Exam: Alert, Awake, Oriented x3 - Psychiatric Exam Psychiatric exam: Normal Mood - Skin Skin Exam: Dry, Warm Assessment and Plan - Assessment and Plan (Free Text) Assessment: 63M with pmhx of ESRD on hemodialysis (, , thu), chronic anemia,secondary hyperparathyroidism, DM, hypertension, PVD, legally blind, left BKA (2017) presents from [facility] with right foot gangrene. S/p 5th ray partial amputation, and with proteus and staph aureus bacteremia. - Cont with Vanc with dialysis TTS, and Santi was started yesterday - Blood cx shows proteus and staph aureus - F/u OR cultures and path - F/u podiatry, vascular, and nephro consult and recs - Cont to monitor Case and plan was reviewed and discussed with Dr Casper <Jose Casper - Last Filed: 10/29/18 14:39> Objective - Vital Signs/Intake and Output Vital Signs (last 24 hours): Temp Pulse Resp BP Pulse Ox 100.6 F H 75 18 136/64 100 10/29/18 06:00 10/29/18 09:11 10/29/18 06:00 10/29/18 09:11 10/29/18 06:00 Intake and Output: 10/29/18 10/29/18 06:59 18:59 Intake Total 360 Balance 360 - Medications Medications: Current Medications Acetaminophen (Tylenol 325mg Tab) 650 mg PO Q4H PRN PRN Reason: Pain, Mild (1-3) Darbepoetin Rob (Aranesp) 60 mcg IVP QWK [facility] Ergocalciferol (Drisdol 50,000 Intl Units Cap) 1 cap PO Q7D [facility] Last Admin: 10/27/18 10:53 Dose: 1 cap Ferrous Sulfate (Feosol) 324 mg PO DAILY [facility] Last Admin: 10/29/18 09:11 Dose: 324 mg Heparin Sodium (Porcine) (Heparin) 5,000 units SC Q12 [facility]; Protocol Last Admin: 10/29/18 09:17 Dose: 5,000 units Meropenem/Sodium Chloride (Merrem Iv 500 Mg/Ns 50 Ml) 500 mg in 50 mls @ 100 mls/hr IVPB Q24H [facility]; Protocol Stop: 11/04/18 14:16 Last Admin: 10/29/18 13:26 Dose: 100 mls/hr Vancomycin HCl (Vancomycin 750 Mg In Ns) 750 mg in 250 mls @ 167 mls/hr IVPB TTS@2200 [facility]; Protocol Last Admin: 10/29/18 03:56 Dose: Not Given Insulin Human Regular (Humulin R Low) 0 units SC ACHS [facility]; Protocol Last Admin: 10/29/18 13:20 Dose: Not Given Levothyroxine Sodium (Synthroid) 25 mcg PO 0600 [facility] Last Admin: 10/29/18 05:40 Dose: 25 mcg Lisinopril (Zestril) 2.5 mg PO DAILY [facility] Last Admin: 10/29/18 09:11 Dose: 2.5 mg Metoprolol Tartrate (Lopressor) 50 mg PO BRKDIN [facility] Last Admin: 10/29/18 09:10 Dose: 50 mg Ondansetron HCl (Zofran Tab) 4 mg PO Q8H PRN PRN Reason: Nausea/Vomiting Oxycodone/Acetaminophen (Percocet 5/325 Mg Tab) 1 tab PO Q4H PRN PRN Reason: Pain, moderate (4-7) Stop: 10/31/18 08:50 Oxycodone/Acetaminophen (Percocet 5/325 Mg Tab) 2 tab PO Q4H PRN PRN Reason: Pain, severe (8-10) Stop: 10/31/18 08:50 Sevelamer HCl (Renagel) 800 mg PO TID [facility] Vitamin B Complex/Vit C/Folic Acid (Nephro-Yocasta) 1 tab PO 0800 [facility] Last Admin: 10/29/18 09:12 Dose: 1 tab - Labs Labs: 10/29/18 11:45 10/28/18 13:30 PT 11.2 SECONDS (9.4-12.5) 10/25/18 16:30 INR 0.98 10/25/18 16:30 APTT 30.3 Seconds (25.1-36.5) 10/25/18 16:30 Assessment and Plan - Assessment and Plan (Free Text) Assessment: Infectious diseases Attending Physician Attestation Patient seen and examined, discussed with medical records analyst. I have reviewed the patient's history of present illness, past medical, social, personal and family histories, pertinent physical exam findings, course so far in this hospital admission, pertinent laboratory and imaging results. I agree with the above findings, assessment and plan. In addition, we will continue intermittent Vancomycin and Merrem for patient with MSSA and Proteus bacteremia in this patient with right 5th toe gangrene S/P amputation. Follow up OR cx and pathology to guide antibiotic choice and duration of therapy.
[2018-10-29] MEDS: Multivitamin Vitamin B Complex (Nephro-Vite) Tab PO SCH (09:12)
--- NOTE | 2018-10-29 09:42 | CP.PCM.APN ---
Subjective - Date & Time of Evaluation Date of Evaluation: 10/29/18 Time of Evaluation: 10:00 - Subjective Subjective: Pt seen and examined at bedside. In no acute distress. Objective - Vital Signs/Intake and Output Vital Signs (last 24 hours): Temp Pulse Resp BP Pulse Ox 98.4 F 75 18 136/64 95 10/28/18 22:51 10/29/18 09:11 10/28/18 22:51 10/29/18 09:11 10/28/18 22:51 Intake and Output: 10/29/18 10/29/18 06:59 18:59 Intake Total 360 Balance 360 - Medications Medications: Current Medications Acetaminophen (Tylenol 325mg Tab) 650 mg PO Q4H PRN PRN Reason: Pain, Mild (1-3) Darbepoetin Rob (Aranesp) 60 mcg IVP QWK [facility] Ergocalciferol (Drisdol 50,000 Intl Units Cap) 1 cap PO Q7D [facility] Last Admin: 10/27/18 10:53 Dose: 1 cap Ferrous Sulfate (Feosol) 324 mg PO DAILY [facility] Last Admin: 10/29/18 09:11 Dose: 324 mg Heparin Sodium (Porcine) (Heparin) 5,000 units SC Q12 [facility]; Protocol Last Admin: 10/29/18 09:17 Dose: 5,000 units Meropenem/Sodium Chloride (Merrem Iv 500 Mg/Ns 50 Ml) 500 mg in 50 mls @ 100 mls/hr IVPB Q24H [facility]; Protocol Stop: 11/04/18 14:16 Last Admin: 10/28/18 18:31 Dose: Not Given Vancomycin HCl (Vancomycin 750 Mg In Ns) 750 mg in 250 mls @ 167 mls/hr IVPB TTS@2200 [facility]; Protocol Last Admin: 10/29/18 03:56 Dose: Not Given Insulin Human Regular (Humulin R Low) 0 units SC ACHS [facility]; Protocol Last Admin: 10/29/18 08:31 Dose: Not Given Levothyroxine Sodium (Synthroid) 25 mcg PO 0600 [facility] Last Admin: 10/29/18 05:40 Dose: 25 mcg Lisinopril (Zestril) 2.5 mg PO DAILY [facility] Last Admin: 10/29/18 09:11 Dose: 2.5 mg Metoprolol Tartrate (Lopressor) 50 mg PO BRKDIN [facility] Last Admin: 10/29/18 09:10 Dose: 50 mg Ondansetron HCl (Zofran Tab) 4 mg PO Q8H PRN PRN Reason: Nausea/Vomiting Oxycodone/Acetaminophen (Percocet 5/325 Mg Tab) 1 tab PO Q4H PRN PRN Reason: Pain, moderate (4-7) Stop: 10/31/18 08:50 Oxycodone/Acetaminophen (Percocet 5/325 Mg Tab) 2 tab PO Q4H PRN PRN Reason: Pain, severe (8-10) Stop: 10/31/18 08:50 Sevelamer HCl (Renagel) 800 mg PO TID [facility] Vitamin B Complex/Vit C/Folic Acid (Nephro-Yocasta) 1 tab PO 0800 [facility] Last Admin: 10/29/18 09:12 Dose: 1 tab - Labs Labs: 10/28/18 13:30 10/28/18 13:30 PT 11.2 SECONDS (9.4-12.5) 10/25/18 16:30 INR 0.98 10/25/18 16:30 APTT 30.3 Seconds (25.1-36.5) 10/25/18 16:30 Assessment and Plan - Assessment and Plan (Free Text) Assessment: Pt is a 63 y.o. male who is admitted for R 5th toe gangrene. He is s/p r 5th ray partial amputation pod#1. Plan: On Vanco/Merrem per ID recs Initial Bcx - proteus mirabilis, staph aureus Pending repeat BCX Pending OR culture/path ID, Renal, Podiatry, and Cardio on consult Meds per MAR Will continue to follow
[2018-10-29 12:22] LABS: HEMOGLOBIN 8.9 g/dL (14.0-18.0); MEAN CELL VOLUME 102.9 fl (80.0-105.0); MEAN CORPUSCULAR HEMOGLOBIN 32.1 pg (25.0-35.0); MEAN CORPUSCULAR HGB CONC 31.2 g/dl (31.0-37.0); MEAN PLATELET VOLUME 10.5 fl (7.0-11.0); RBC 2.77 10^6/uL (3.5-6.1); RED CELL DISTRIBUTION WIDTH 14.8 % (11.5-14.5); WHITE BLOOD COUNT 11.6 10^3/uL (4.5-11.0)
--- NOTE | 2018-10-29 13:02 | CP.PCM.PN ---
<Arturo Botello - Last Filed: 10/29/18 12:57> Subjective - Date & Time of Evaluation Date of Evaluation: 10/29/18 Time of Evaluation: 12:57 - Subjective Subjective: Podiatry progress note for Dr. Blakely 63M seen and evaluated at bedside with Dr. Blakely. Patient is in no acute distress. Patient states he is in no pain to his right foot and that he had no acute events overnight. Denies N/V/F/C/SOB/CP. Objective - Vital Signs/Intake and Output Vital Signs (last 24 hours): Temp Pulse Resp BP Pulse Ox 100.6 F H 75 18 136/64 100 10/29/18 06:00 10/29/18 09:11 10/29/18 06:00 10/29/18 09:11 10/29/18 06:00 Intake and Output: 10/29/18 10/29/18 06:59 18:59 Intake Total 360 Balance 360 - Medications Medications: Current Medications Acetaminophen (Tylenol 325mg Tab) 650 mg PO Q4H PRN PRN Reason: Pain, Mild (1-3) Darbepoetin Rob (Aranesp) 60 mcg IVP QWK [facility] Ergocalciferol (Drisdol 50,000 Intl Units Cap) 1 cap PO Q7D [facility] Last Admin: 10/27/18 10:53 Dose: 1 cap Ferrous Sulfate (Feosol) 324 mg PO DAILY [facility] Last Admin: 10/29/18 09:11 Dose: 324 mg Heparin Sodium (Porcine) (Heparin) 5,000 units SC Q12 [facility]; Protocol Last Admin: 10/29/18 09:17 Dose: 5,000 units Meropenem/Sodium Chloride (Merrem Iv 500 Mg/Ns 50 Ml) 500 mg in 50 mls @ 100 mls/hr IVPB Q24H [facility]; Protocol Stop: 11/04/18 14:16 Last Admin: 10/28/18 18:31 Dose: Not Given Vancomycin HCl (Vancomycin 750 Mg In Ns) 750 mg in 250 mls @ 167 mls/hr IVPB TTS@2200 [facility]; Protocol Last Admin: 10/29/18 03:56 Dose: Not Given Insulin Human Regular (Humulin R Low) 0 units SC ACHS [facility]; Protocol Last Admin: 10/29/18 12:01 Dose: 1 units Levothyroxine Sodium (Synthroid) 25 mcg PO 0600 [facility] Last Admin: 10/29/18 05:40 Dose: 25 mcg Lisinopril (Zestril) 2.5 mg PO DAILY [facility] Last Admin: 10/29/18 09:11 Dose: 2.5 mg Metoprolol Tartrate (Lopressor) 50 mg PO BRKDIN [facility] Last Admin: 10/29/18 09:10 Dose: 50 mg Ondansetron HCl (Zofran Tab) 4 mg PO Q8H PRN PRN Reason: Nausea/Vomiting Oxycodone/Acetaminophen (Percocet 5/325 Mg Tab) 1 tab PO Q4H PRN PRN Reason: Pain, moderate (4-7) Stop: 10/31/18 08:50 Oxycodone/Acetaminophen (Percocet 5/325 Mg Tab) 2 tab PO Q4H PRN PRN Reason: Pain, severe (8-10) Stop: 10/31/18 08:50 Sevelamer HCl (Renagel) 800 mg PO TID [facility] Vitamin B Complex/Vit C/Folic Acid (Nephro-Yocasta) 1 tab PO 0800 [facility] Last Admin: 10/29/18 09:12 Dose: 1 tab - Labs Labs: 10/29/18 11:45 10/28/18 13:30 PT 11.2 SECONDS (9.4-12.5) 10/25/18 16:30 INR 0.98 10/25/18 16:30 APTT 30.3 Seconds (25.1-36.5) 10/25/18 16:30 - Constitutional Appears: Non-toxic, No Acute Distress - Head Exam Head Exam: NORMOCEPHALIC - Extremities Exam Additional comments: RLE focused VASC: DP and PT pulses nonpalpable; no cap refill assessed as 1-4 digit amputations, 5th >3 seconds; no edema noted, hair growth absent; temp gradient warm to cold DERM: digits 1-4 amputations; site of fifth ray partial amputation surgery appe ars well coapted, sutures in place, no drainage or signs of dehiscence, no signs of ischemic event, no pus, no clinical signs of infection ORTHO: no pain on palpation of surgical site; previous amputations of 1-4 digits NEURO: gross and protective sensation absent - Neurological Exam Neurological Exam: Alert, Awake - Psychiatric Exam Psychiatric exam: Normal Affect, Normal Mood Assessment and Plan - Assessment and Plan (Free Text) Assessment: 63M POD 1 right fifth ray partial amputation Plan: Patient seen and evaluated with Dr. Blakely Afebrile, WBC 11.6 Surgical site cleansed with sterile saline and dressed with betadine, adaptic, DSD Continue treatment per medicine Keep site off from pressure on bed Podiatry to continue to follow <Loco Blakely - Last Filed: 10/29/18 13:53> Objective - Vital Signs/Intake and Output Vital Signs (last 24 hours): Temp Pulse Resp BP Pulse Ox 100.6 F H 75 18 136/64 100 10/29/18 06:00 10/29/18 09:11 10/29/18 06:00 10/29/18 09:11 10/29/18 06:00 Intake and Output: 10/29/18 10/29/18 06:59 18:59 Intake Total 360 Balance 360 - Medications Medications: Current Medications Acetaminophen (Tylenol 325mg Tab) 650 mg PO Q4H PRN PRN Reason: Pain, Mild (1-3) Darbepoetin Rob (Aranesp) 60 mcg IVP QWK [facility] Ergocalciferol (Drisdol 50,000 Intl Units Cap) 1 cap PO Q7D [facility] Last Admin: 10/27/18 10:53 Dose: 1 cap Ferrous Sulfate (Feosol) 324 mg PO DAILY [facility] Last Admin: 10/29/18 09:11 Dose: 324 mg Heparin Sodium (Porcine) (Heparin) 5,000 units SC Q12 [facility]; Protocol Last Admin: 10/29/18 09:17 Dose: 5,000 units Meropenem/Sodium Chloride (Merrem Iv 500 Mg/Ns 50 Ml) 500 mg in 50 mls @ 100 mls/hr IVPB Q24H [facility]; Protocol Stop: 11/04/18 14:16 Last Admin: 10/29/18 13:26 Dose: 100 mls/hr Vancomycin HCl (Vancomycin 750 Mg In Ns) 750 mg in 250 mls @ 167 mls/hr IVPB TTS@2200 [facility]; Protocol Last Admin: 10/29/18 03:56 Dose: Not Given Insulin Human Regular (Humulin R Low) 0 units SC ACHS [facility]; Protocol Last Admin: 10/29/18 13:20 Dose: Not Given Levothyroxine Sodium (Synthroid) 25 mcg PO 0600 [facility] Last Admin: 10/29/18 05:40 Dose: 25 mcg Lisinopril (Zestril) 2.5 mg PO DAILY [facility] Last Admin: 10/29/18 09:11 Dose: 2.5 mg Metoprolol Tartrate (Lopressor) 50 mg PO BRKDIN [facility] Last Admin: 10/29/18 09:10 Dose: 50 mg Ondansetron HCl (Zofran Tab) 4 mg PO Q8H PRN PRN Reason: Nausea/Vomiting Oxycodone/Acetaminophen (Percocet 5/325 Mg Tab) 1 tab PO Q4H PRN PRN Reason: Pain, moderate (4-7) Stop: 10/31/18 08:50 Oxycodone/Acetaminophen (Percocet 5/325 Mg Tab) 2 tab PO Q4H PRN PRN Reason: Pain, severe (8-10) Stop: 10/31/18 08:50 Sevelamer HCl (Renagel) 800 mg PO TID [facility] Vitamin B Complex/Vit C/Folic Acid (Nephro-Yocasta) 1 tab PO 0800 [facility] Last Admin: 10/29/18 09:12 Dose: 1 tab - Labs Labs: 10/29/18 11:45 10/28/18 13:30 PT 11.2 SECONDS (9.4-12.5) 10/25/18 16:30 INR 0.98 10/25/18 16:30 APTT 30.3 Seconds (25.1-36.5) 10/25/18 16:30 Attending/Attestation - Attestation I have personally seen and examined this patient.: Yes I have fully participated in the care of the patient.: Yes I have reviewed all pertinent clinical information, including history, physical exam and plan: Yes
[2018-10-29] MEDS: MEROPENEM 500 MG in NS 500 MG/50 ML BAG IVPB SCH (13:26)
--- NOTE | 2018-10-29 13:51 | PN ---
DATE: 10/28/2018 SUBJECTIVE: The patient is in hemodialysis. He seems comfortable, status post surgery of the left foot. Does not seem to be in pain and he is getting hemodialysis. He seems sleepy, but otherwise he had lunch and his sugars stable. PHYSICAL EXAMINATION: VITAL SIGNS: His temperature 98.7, heart rate 68, blood pressure 126/63, respirations 20, and saturating 99% on room air. HEAD AND NECK: Normal. No JVD. No thyromegaly. CHEST: Clear bilaterally. CARDIAC: First sound and second sound normal. No murmur, rub, or gallop. ABDOMEN: Soft and nontender. EXTREMITIES: There is right below-knee amputation. Left, small toe and fifth toe amputation; and his foot is wrapped around with a gauze. NEUROLOGIC: He moves all extremities. LABORATORY STUDIES: One blood culture shows proteus mirabilis and Staphylococcus aureus and laboratory on 10/28/2018; white count 8.1, hemoglobin 8.0, hematocrit 25, and platelet 228. Chemistry shows sodium 137, potassium 4.1, chloride 101, bicarb 27, BUN 34, creatinine 5.2, blood sugar 157, calcium 8.2, and phosphorus 2.4. IMPRESSION AND PLAN: 1. Status post left toe amputation, status post surgery. Continue current local wound care, IV antibiotics and getting vancomycin each dialysis and Infectious Disease consult seen the patient. Also, the patient had added meropenem because of the gram-negative Proteus mirabilis in the blood, which he is getting 500 mg everyday every 24 hours. 2. Chronic renal failure. He is maintained on hemodialysis. 3. Anemia. We will monitor. He may need transfusions, status post surgery. We will discuss with a hot baller for giving him Epogen or transfusion iron IV. 4. Hypertension. Continue Zestril 2.5 mg. Continue metoprolol 50 mg twice daily. 5. Peripheral vascular disease, hypercholesterolemia, hypothyroidism and continue current medications. Currently, the patient is getting Aranesp, vitamin D, iron p.o., heparin subcutaneous, insulin coverage, Lopressor 50 twice daily, Merrem 500 daily, and vancomycin he is getting 750 mg once a day. He is on Zestril 2.5 once a day, Zofran p.r.n., Synthroid 25 mcg once a day, Renagel 800 3 times daily has been reduced and also getting oxycodone p.r.n. for pain. Continue vitamin B complex and Nephro-Yocasta. The patient is medically stable. We will continue followup with him. Feliciano Manriquez MD
--- NOTE | 2018-10-29 14:08 | CP.PCM.PN ---
Subjective - Date & Time of Evaluation Date of Evaluation: 10/29/18 Time of Evaluation: 10:00 - Subjective Subjective: Nephrology Consultation Note: Assessment: Stable Rt foot 5th toe gangrene s/p amputation 10/28/18 GNR sepsis Diabetic chronic Kidney Disease (E11.22) Hypertensive Chronic Kidney Disease (I12.0) End stage renal disease (N18.6) dependence on hemodialysis (Z99.2) (TTS) via AVF Anemia (D64.9), Hyperphosphatemia (E83.39), Secondary Hyperparathyroidism (E21.1), HTN (I12.0) PVD sys CHF LVEF 35-40% Plan: Will plan for HD TTS schedule as ordered. Continue with Nephrovite 1 tab/day. PRBC as needed for anemia. on HILTON weekly with dialysis as last Hb 8.9 Continue with phos binders but hold 1-2 day and resume @ lower dose last phos level 2.4 BP control with meds as ordered. Patient now on RAAS levi, low dose lisinopril Glycemic control, Dialysis consistent diet Further work up/management as per primary team Dose meds/antibiotics (if needed) for ESRD status. Avoid fleets enema/magnesium based laxatives. podiatry cardio follow up appreciated Thanks for allowing me to participate in care of your patient. Will follow patient with you. Please call if any Qs Dr Alfred Resendez Office: [phone] Chief Complaint; toe gangrene HPI: Pt is a 63 M with hx of ESRD on hemodialysis (TTS) via AVF , last dialysis sat, chronic anemia, hyperphosphatemia, secondary hyperparathyroidism, Diabetes Mellitus, hypertension PVD, legally blind, left BKA presented with complaints of foot 5th toe gangrene. Renal consult requested for ESRD management. otherwise he feels usual health ROS: Cardiovascular: No chest pain. Pulmonary: No shortness of breath Gastrointestinal: denies abdominal pain No nausea. No vomiting. Genitourinary: No pain while urinating. Denies blood in urine. All other negative except as mentioned in HPI Physical Examination: General Appearance: Comfortable, in no acute respiratory distress, co-operative . Vitals reviewed and noted as below Head; Atraumatic, normocephalic ENT: no ulcers no thrush. Tongue is midline. Oropharynx: no rash or ulcers. EYES: Pupils are equal, round and reactive to light accommodation. Eye muscles and extraocular movement intact. Sclera is anicteric. Neck; supple no lymphadenopathy, no thyromegaly or bruit Lungs: Normal respiratory rate/effort. Breath sounds bilateral equal and clear Heart: Normal rate. s1s2 normal. No rub or gallop. Extremities: no edema. No varicose veins. left BKA. Rt foot dressed Neurological: Patient is alert, awake and oriented to person, place and time. No focal deficit. Strength bilateral appropriate and equal Skin: Warm and dry. Normal turgor. No rash. Palpitation: Normal elasticity for age Abdomen: Abdomen is soft. Bowel sounds +. There is no abdominal tenderness, no guarding/rigidity or organomegaly Psych: normal insight and normal affect/mood MSK: no joint tenderness or swelling. : kidney or bladder not palpable Access: AVF Labs/imaging reviewed. Past medical history, past surgical history, family history, social history, allergy reviewed and noted as below Family Hx: no hx of CKD. Non contributory Objective - Vital Signs/Intake and Output Vital Signs (last 24 hours): Temp Pulse Resp BP Pulse Ox 100.6 F H 75 18 136/64 100 10/29/18 06:00 10/29/18 09:11 10/29/18 06:00 10/29/18 09:11 10/29/18 06:00 Intake and Output: 10/29/18 10/29/18 06:59 18:59 Intake Total 360 Balance 360 - Medications Medications: Current Medications Acetaminophen (Tylenol 325mg Tab) 650 mg PO Q4H PRN PRN Reason: Pain, Mild (1-3) Darbepoetin Rob (Aranesp) 60 mcg IVP QWK [facility] Ergocalciferol (Drisdol 50,000 Intl Units Cap) 1 cap PO Q7D [facility] Last Admin: 10/27/18 10:53 Dose: 1 cap Ferrous Sulfate (Feosol) 324 mg PO DAILY [facility] Last Admin: 10/29/18 09:11 Dose: 324 mg Heparin Sodium (Porcine) (Heparin) 5,000 units SC Q12 [facility]; Protocol Last Admin: 10/29/18 09:17 Dose: 5,000 units Meropenem/Sodium Chloride (Merrem Iv 500 Mg/Ns 50 Ml) 500 mg in 50 mls @ 100 mls/hr IVPB Q24H [facility]; Protocol Stop: 11/04/18 14:16 Last Admin: 10/29/18 13:26 Dose: 100 mls/hr Vancomycin HCl (Vancomycin 750 Mg In Ns) 750 mg in 250 mls @ 167 mls/hr IVPB TTS@2200 [facility]; Protocol Last Admin: 10/29/18 03:56 Dose: Not Given Insulin Human Regular (Humulin R Low) 0 units SC ACHS [facility]; Protocol Last Admin: 10/29/18 13:20 Dose: Not Given Levothyroxine Sodium (Synthroid) 25 mcg PO 0600 [facility] Last Admin: 10/29/18 05:40 Dose: 25 mcg Lisinopril (Zestril) 2.5 mg PO DAILY [facility] Last Admin: 10/29/18 09:11 Dose: 2.5 mg Metoprolol Tartrate (Lopressor) 50 mg PO BRKDIN [facility] Last Admin: 10/29/18 09:10 Dose: 50 mg Ondansetron HCl (Zofran Tab) 4 mg PO Q8H PRN PRN Reason: Nausea/Vomiting Oxycodone/Acetaminophen (Percocet 5/325 Mg Tab) 1 tab PO Q4H PRN PRN Reason: Pain, moderate (4-7) Stop: 10/31/18 08:50 Oxycodone/Acetaminophen (Percocet 5/325 Mg Tab) 2 tab PO Q4H PRN PRN Reason: Pain, severe (8-10) Stop: 10/31/18 08:50 Sevelamer HCl (Renagel) 800 mg PO TID [facility] Vitamin B Complex/Vit C/Folic Acid (Nephro-Yocasta) 1 tab PO 0800 [facility] Last Admin: 10/29/18 09:12 Dose: 1 tab - Labs Labs: 10/29/18 11:45 10/28/18 13:30 PT 11.2 SECONDS (9.4-12.5) 10/25/18 16:30 INR 0.98 10/25/18 16:30 APTT 30.3 Seconds (25.1-36.5) 10/25/18 16:30
[2018-10-30] MEDS: Levothyroxine 25 MCG TAB PO SCH (05:49)
--- NOTE | 2018-10-30 06:59 | CP.PCM.PN ---
Subjective - Date & Time of Evaluation Date of Evaluation: 10/30/18 Time of Evaluation: 06:50 - Subjective Subjective: Lying in bed Awake, alert, no distress Reason for consultation and follow up: Cardiac clearance for toe surgery, risk stratification.History of ESRD on hemodialysis 3x a week. with Left AV shunt/graft, diabetes, hypothyroidism, peripheral vascular disease, left BKA, legally blind, hypertension, hyperlipidemia, seizures, anemia, gastritis, GI bleeding, post angioplasty of right leg (07/2017), peripheral neuropathy, coronary artery disease. Status post right foot fifth digit phalange and metatarsal amputation. Seen and examined by me and Dr. Ashraf Objective - Vital Signs/Intake and Output Vital Signs (last 24 hours): Temp Pulse Resp BP Pulse Ox 99.8 F H 82 18 128/68 98 10/29/18 22:00 10/29/18 22:00 10/29/18 22:00 10/29/18 22:00 10/29/18 22:00 - Medications Medications: Current Medications Acetaminophen (Tylenol 325mg Tab) 650 mg PO Q4H PRN PRN Reason: Pain, Mild (1-3) Darbepoetin Rob (Aranesp) 60 mcg IVP QWK [facility] Ergocalciferol (Drisdol 50,000 Intl Units Cap) 1 cap PO Q7D [facility] Last Admin: 10/27/18 10:53 Dose: 1 cap Ferrous Sulfate (Feosol) 324 mg PO DAILY [facility] Last Admin: 10/29/18 09:11 Dose: 324 mg Heparin Sodium (Porcine) (Heparin) 5,000 units SC Q12 [facility]; Protocol Last Admin: 10/29/18 21:32 Dose: 5,000 units Meropenem/Sodium Chloride (Merrem Iv 500 Mg/Ns 50 Ml) 500 mg in 50 mls @ 100 mls/hr IVPB Q24H [facility]; Protocol Stop: 11/04/18 14:16 Last Admin: 10/29/18 13:26 Dose: 100 mls/hr Vancomycin HCl (Vancomycin 750 Mg In Ns) 750 mg in 250 mls @ 167 mls/hr IVPB TTS@2200 [facility]; Protocol Last Admin: 10/29/18 03:56 Dose: Not Given Insulin Human Regular (Humulin R Low) 0 units SC ACHS [facility]; Protocol Last Admin: 10/29/18 21:31 Dose: Not Given Levothyroxine Sodium (Synthroid) 25 mcg PO 0600 [facility] Last Admin: 10/30/18 05:49 Dose: 25 mcg Lisinopril (Zestril) 2.5 mg PO DAILY [facility] Last Admin: 10/29/18 09:11 Dose: 2.5 mg Metoprolol Tartrate (Lopressor) 50 mg PO BRKDIN [facility] Last Admin: 10/29/18 17:21 Dose: Not Given Ondansetron HCl (Zofran Tab) 4 mg PO Q8H PRN PRN Reason: Nausea/Vomiting Oxycodone/Acetaminophen (Percocet 5/325 Mg Tab) 1 tab PO Q4H PRN PRN Reason: Pain, moderate (4-7) Stop: 10/31/18 08:50 Oxycodone/Acetaminophen (Percocet 5/325 Mg Tab) 2 tab PO Q4H PRN PRN Reason: Pain, severe (8-10) Stop: 10/31/18 08:50 Sevelamer HCl (Renagel) 800 mg PO TID [facility] Vitamin B Complex/Vit C/Folic Acid (Nephro-Yocasta) 1 tab PO 0800 [facility] Last Admin: 10/29/18 09:12 Dose: 1 tab - Labs Labs: 10/29/18 11:45 10/28/18 13:30 PT 11.2 SECONDS (9.4-12.5) 10/25/18 16:30 INR 0.98 10/25/18 16:30 APTT 30.3 Seconds (25.1-36.5) 10/25/18 16:30 - Constitutional Appears: Non-toxic, No Acute Distress - Head Exam Head Exam: NORMAL INSPECTION, NORMOCEPHALIC - Eye Exam Additional comments: legally blind - ENT Exam ENT Exam: Mucous Membranes Moist, Normal Exam - Respiratory Exam Respiratory Exam: Clear to Ausculation Bilateral, NORMAL BREATHING PATTERN - Cardiovascular Exam Cardiovascular Exam: +S1, +S2 - GI/Abdominal Exam GI & Abdominal Exam: Soft, Normal Bowel Sounds - Extremities Exam Additional comments: left arm AV shunt positive brit Left BKA Right foot dressing - Neurological Exam Neurological Exam: Alert, Awake, Oriented x3 - Psychiatric Exam Psychiatric exam: Normal Affect, Normal Mood - Skin Skin Exam: Dry, Normal Color, Warm Assessment and Plan - Assessment and Plan (Free Text) Assessment: A 63 year old male who was brought to the ER for [facility] due to right fifth toe gangrene. Poor historian. He does not know why he is in the hospital. chart reviewed. History of ESRD on hemodialysis 3x a week. with Left AV shunt/graft, diabetes, hypothyroidism, peripheral vascular disease, left BKA, legally blind, hypertension, hyperlipidemia, seizures, anemia, gastritis, GI bleeding, post angioplasty of right leg (07/2017),post 3rd toe digit amputation 07/2018, peripheral neuropathy, coronary artery disease. Normal EKG. Denies chest pain, Denies shortness of breath. No signs of ischemia, No signs of heart failure. For possible right 5th toe gangrene surgery.Echo done yesterday, Normal chamber size, LVEF 35-40%,mild aortic regurgitation,trace MR/TR, trivial pericardial effusion. no vegetation or thrombus.Moderate risk for surgery. Cleared from cardiac standpoint. Normal Lipid and TSH levels. Status post right 5th digit phalange and metatarsal amputation POD#2. Cardiac status stable. Blood culture positive for proteus mirabilis and staph aureaus. Toe wound culture positive for gram negative rods. ID on consult. Plan: No distress, low grade fever Cardiac status stable Heart rate controlled Blood pressure controlled Status post right 5th digit phalange and metatarsal amputation POD#2 On hemodialysis 3x a week (TTS) On Norvasc 10 mg daily,Synthroid 25 mcg daily,Lopressor 50 mg BID Continue current treatment Continue current medications Continue IV antibiotics as ordered by ID Followed up by Podiatry Will follow up Plan and treatment discussed with Dr. Ashraf
[2018-10-30] MEDS: Insulin Reg-LOW-Coverage SC SCH ×4 (08:57→22:30)
[2018-10-30 09:31] LABS: BASO # 0.02 K/mm3 (0.0-2.0); BASO % 0.2 % (0.0-3.0); EOS # 0.4 (0.0-0.7); EOS % 3.9 % (1.5-5.0); HEMOGLOBIN 7.9 g/dL (14.0-18.0); LYMPH # 1.8 (1.2-3.4); LYMPH % 17.9 % (22.0-35.0); MEAN CELL VOLUME 99.2 fl (80.0-105.0); MEAN CORPUSCULAR HEMOGLOBIN 31.2 pg (25.0-35.0); MEAN CORPUSCULAR HGB CONC 31.5 g/dl (31.0-37.0); MEAN PLATELET VOLUME 10.1 fl (7.0-11.0); MONO # 0.9 (0.1-0.6); RBC 2.53 10^6/uL (3.5-6.1); RED CELL DISTRIBUTION WIDTH 14.8 % (11.5-14.5); WHITE BLOOD COUNT 9.8 10^3/uL (4.5-11.0)
[2018-10-30 09:50] LABS: CALCIUM 8.4 mg/dL (8.4-10.5)
[2018-10-30] MEDS: Multivitamin Vitamin B Complex (Nephro-Vite) Tab PO SCH (13:47)
[2018-10-30] MEDS: MEROPENEM 500 MG in NS 500 MG/50 ML BAG IVPB SCH (13:47)
--- NOTE | 2018-10-30 17:25 | CP.PCM.PN ---
Subjective - Date & Time of Evaluation Date of Evaluation: 10/30/18 Time of Evaluation: 17:24 - Subjective Subjective: Nephrology Consultation Note: Assessment: Stable Rt foot 5th toe gangrene s/p amputation 10/28/18 GNR sepsis Diabetic chronic Kidney Disease (E11.22) Hypertensive Chronic Kidney Disease (I12.0) End stage renal disease (N18.6) dependence on hemodialysis (Z99.2) (TTS) via AVF Anemia (D64.9), Hyperphosphatemia (E83.39), Secondary Hyperparathyroidism (E21.1), HTN (I12.0) PVD sys CHF LVEF 35-40% Plan: Will plan for HD TTS schedule as ordered. Continue with Nephrovite PRBC as needed for anemia. on HILTON weekly with dialysis Continue with phos binders BP control with meds as ordered. Patient now on RAAS levi, low dose lisinopril Dose meds/antibiotics (if needed) for ESRD status. ROS: Cardiovascular: No chest pain. Pulmonary: No shortness of breath Gastrointestinal: denies abdominal pain No nausea. No vomiting. Genitourinary: No pain while urinating. Denies blood in urine. All other negative except as mentioned in HPI Physical Examination: General Appearance: Comfortable, in no acute respiratory distress, co-operative . Vitals reviewed and noted Head; Atraumatic, normocephalic ENT: no ulcers EYES: Eye muscles and extraocular movement intact. Sclera is anicteric. Neck; supple Lungs: Normal respiratory rate/effort. Breath sounds bilateral equal and clear Heart: Normal rate. s1s2 normal. No rub or gallop. Extremities: no edema. No varicose veins. left BKA. Rt foot dressed Neurological: Patient is alert, awake and oriented to person, place and time. No focal deficit. Strength bilateral appropriate and equal Skin: Warm and dry. Normal turgor. Abdomen: Abdomen is soft. Bowel sounds +. Psych: normal insight and normal affect/mood MSK: no joint tenderness Objective - Vital Signs/Intake and Output Vital Signs (last 24 hours): Temp Pulse Resp BP Pulse Ox 98 F 67 18 110/60 100 10/30/18 07:00 10/30/18 13:44 10/30/18 07:00 10/30/18 13:44 10/30/18 07:00 - Medications Medications: Current Medications Acetaminophen (Tylenol 325mg Tab) 650 mg PO Q4H PRN PRN Reason: Pain, Mild (1-3) Darbepoetin Rob (Aranesp) 60 mcg IVP QWK [facility] Ergocalciferol (Drisdol 50,000 Intl Units Cap) 1 cap PO Q7D [facility] Last Admin: 10/27/18 10:53 Dose: 1 cap Ferrous Sulfate (Feosol) 324 mg PO DAILY [facility] Last Admin: 10/30/18 13:46 Dose: 324 mg Heparin Sodium (Porcine) (Heparin) 5,000 units SC Q12 [facility]; Protocol Last Admin: 10/30/18 10:00 Dose: Not Given Meropenem/Sodium Chloride (Merrem Iv 500 Mg/Ns 50 Ml) 500 mg in 50 mls @ 100 mls/hr IVPB Q24H [facility]; Protocol Stop: 11/04/18 14:16 Last Admin: 10/30/18 13:47 Dose: 100 mls/hr Vancomycin HCl (Vancomycin 750 Mg In Ns) 750 mg in 250 mls @ 167 mls/hr IVPB TTS@2200 [facility]; Protocol Last Admin: 10/29/18 03:56 Dose: Not Given Insulin Human Regular (Humulin R Low) 0 units SC ACHS [facility]; Protocol Last Admin: 10/30/18 11:30 Dose: Not Given Levothyroxine Sodium (Synthroid) 25 mcg PO 0600 [facility] Last Admin: 10/30/18 05:49 Dose: 25 mcg Lisinopril (Zestril) 2.5 mg PO DAILY [facility] Last Admin: 10/30/18 13:44 Dose: 2.5 mg Metoprolol Tartrate (Lopressor) 50 mg PO BRKDIN [facility] Last Admin: 10/30/18 09:00 Dose: Not Given Ondansetron HCl (Zofran Tab) 4 mg PO Q8H PRN PRN Reason: Nausea/Vomiting Oxycodone/Acetaminophen (Percocet 5/325 Mg Tab) 1 tab PO Q4H PRN PRN Reason: Pain, moderate (4-7) Stop: 10/31/18 08:50 Oxycodone/Acetaminophen (Percocet 5/325 Mg Tab) 2 tab PO Q4H PRN PRN Reason: Pain, severe (8-10) Stop: 10/31/18 08:50 Sevelamer HCl (Renagel) 800 mg PO TID [facility] Last Admin: 10/30/18 10:00 Dose: Not Given Vitamin B Complex/Vit C/Folic Acid (Nephro-Yocasta) 1 tab PO 0800 [facility] Last Admin: 10/30/18 13:47 Dose: 1 tab - Labs Labs: 10/30/18 09:00 10/30/18 09:00 PT 11.2 SECONDS (9.4-12.5) 10/25/18 16:30 INR 0.98 10/25/18 16:30 APTT 30.3 Seconds (25.1-36.5) 10/25/18 16:30
--- NOTE | 2018-10-30 17:37 | PN ---
DATE: 10/30/2018 SUBJECTIVE: The patient is in bed, seen earlier today in 567, bed 2. The patient did have fevers yesterday. PHYSICAL EXAMINATION: VITAL SIGNS: Temperature is 98, T-max yesterday was 100.3 and actually was up to 100.6, respiratory rate of 18, heart rate of 71. HEENT: Unremarkable. NECK: Supple. LUNGS: Have decreased breath sounds. HEART: Normal S1, S2. ABDOMEN: Soft. LABORATORY DATA: Reveals a white count of 9.8, hemoglobin of 7, creatinine 6.8. Microbiology reveals the toe culture to be Proteus and coag negative, the blood cultures also with Proteus. Repeat blood cultures are negative. ASSESSMENT AND PLAN: He is a 63-year-old with past medical history of end-stage renal disease, on hemodialysis; chronic anemia; hyperparathyroidism; diabetes; hypertension; legally blind; left below-knee amputation in 2017; severe peripheral vascular disease; and with a right foot gangrene, status post fifth ray partial amputation, Proteus and staph aureus bacteremia, currently on meropenem, intermittent vancomycin. We will follow with you. Oneil Vincent MD
[2018-10-30 18:10] LABS: HEMOGLOBIN 8.3 g/dL (14.0-18.0); MEAN CORPUSCULAR HEMOGLOBIN 31.9 pg (25.0-35.0); MEAN CORPUSCULAR HGB CONC 31.9 g/dl (31.0-37.0); MEAN PLATELET VOLUME 9.2 fl (7.0-11.0); RBC 2.6 10^6/uL (3.5-6.1); RED CELL DISTRIBUTION WIDTH 14.8 % (11.5-14.5); WHITE BLOOD COUNT 8.1 10^3/uL (4.5-11.0)
--- NOTE | 2018-10-30 22:02 | PN ---
DATE: 10/29/2018 SUBJECTIVE: The patient is in hemodialysis. He is comfortable. There is no chest pain. He received antibiotics. The patient had temperature. He has no nausea, vomiting, doing better. PHYSICAL EXAMINATION: VITAL SIGNS: Temperature 99.8, heart rate 82, blood pressure 128/68, respirations 18, saturation 98%. HEAD AND NECK: Normal. No JVD. No thyromegaly. CHEST: Clear bilaterally. CARDIAC: First sound and second sounds are normal. ABDOMEN: Soft. EXTREMITIES: There is right below-knee amputation on the right leg and left leg. There is new surgery with toe amputation for gangrene. The leg is covered with gauze with heel cushions. LABORATORY DATA: White count 11.6, hemoglobin 8.9, hematocrit 28.5, platelets 271. Chemistry shows on the , blood sugar is in 152. IMPRESSION AND PLAN: 1. Status post toe amputation secondary to gangrene. The patient has gram-negative and gram-positive cocci. He is on Maxipime, Merrem IV, and vancomycin. Continue current IV antibiotics. Continue wound care. 2. Anemia. Discussed with civil design specialist. He will continue Epogen plus iron and on the hemoglobin, discussed with Dr. Resendez. Continue Aranesp 60 mcg IV once a week and continue iron pills 324 mg daily. 3. Diabetes. He is on insulin coverage, seems doing well. 4. History of coronary artery disease, hypothyroidism, peripheral vascular disease, hypertension. Continue Zestril. Continue metoprolol 50 mg b.i.d. and continue Synthroid 25 mcg. 5. Continue current therapy, current medications. We will follow up clinically. We will repeat labs in the morning. Discussed the case with Dr. Dipti Simon, civil design specialist on the case and we will repeat CBC in the morning. Feliciano Manriquez MD
[2018-10-30] MEDS: Vancomycin 750mg 750 MG/250 ML BAG IVPB SCH (22:29)
--- NOTE | 2018-10-30 22:29 | PN ---
DATE: 10/30/2018 SUBJECTIVE: The patient is comfortable. No distress. No new complaints. PHYSICAL EXAMINATION: VITAL SIGNS: Temperature 98, heart rate 65, blood pressure 120/66, respirations 18, saturation 100%. HEAD AND NECK: Normal. No JVD. No thyromegaly. CHEST: Clear bilateral. CARDIAC: First sound and second sounds are normal. No murmur, rub, or gallop. ABDOMEN: Soft, nontender. EXTREMITIES: There is right below-knee amputations and left foot is covered with gauze and heel cushions. NEUROLOGICAL: The patient moves all extremities normal. LABORATORY STUDIES: On 10/30/2018, white count 9.8, hemoglobin 7.9, hematocrit 25.1, platelets 239. IMPRESSION AND PLAN: 1. Acute gangrenes of the left small toe. Continue therapy, status post surgical amputations, debridement, and the patient is currently under local wound care plus IV antibiotics, vancomycin. 2. Bacteremia. The patient has gram-negative and gram-positive. Continue Merrem and vancomycin. Followup with Infectious Disease. 3. Anemia. Hemoglobin seems dropped a little bit, 7.9 from 8.9. We are going to repeat the CBC at 4:05 p.m. and we will monitor. We will transfuse if hemoglobin go below 7. Continue to monitor CBC. We will repeat CBC and we will follow up. 4. Diabetes, mainly diet-controlled plus insulin coverage. 5. Hypothyroidism, peripheral vascular disease, hypothyroidism, hypertension, and coronary artery disease. The patient medically seems stable. Continue current medications. Continue gastrointestinal and deep venous thrombosis prophylaxis. CURRENT MEDICATIONS: As follows; Aranesp 60 mcg IV every week, vitamin D once a week, iron pills once a day, heparin subcutaneous every 12 hours, insulin coverage, metoprolol 50 b.i.d, Merrem 500 every 24 hours, vitamin B complex with vitamin C, Nephro-Yocasta, Percocet p.r.n. for pain, Renagel 800 t.i.d., Synthroid 25 mcg once a day, Tylenol p.r.n., vancomycin 750 every hemodialysis I believe, Zestril 2.5 mg p.o. daily, and Zofran 4 mg every 8 hours p.r.n. Continue current therapy. Followup clinically. Plan to repeat labs in the morning and monitor hemoglobin and continue IV antibiotics. Feliciano Manriquez MD
[2018-10-31] MEDS: Levothyroxine 25 MCG TAB PO SCH (06:26)
--- NOTE | 2018-10-31 06:56 | CP.PCM.PN ---
Subjective - Date & Time of Evaluation Date of Evaluation: 10/31/18 Time of Evaluation: 06:25 - Subjective Subjective: No distress, awake Reason for consultation and follow up: Cardiac clearance for toe surgery, risk stratification.History of ESRD on hemodialysis 3x a week. with Left AV shunt/graft, diabetes, hypothyroidism, peripheral vascular disease, left BKA, legally blind, hypertension, hyperlipidemia, seizures, anemia, gastritis, GI bleeding, post angioplasty of right leg (07/2017), peripheral neuropathy, coronary artery disease. Status post right foot fifth digit phalange and metatarsal amputation. Seen and examined by me and Dr. Ashraf Objective - Vital Signs/Intake and Output Vital Signs (last 24 hours): Temp Pulse Resp BP Pulse Ox 99.8 F H 77 16 104/55 L 100 10/30/18 21:25 10/30/18 21:25 10/30/18 21:25 10/30/18 21:25 10/30/18 21:25 - Medications Medications: Current Medications Acetaminophen (Tylenol 325mg Tab) 650 mg PO Q4H PRN PRN Reason: Pain, Mild (1-3) Darbepoetin Rob (Aranesp) 60 mcg IVP QWK [facility] Ergocalciferol (Drisdol 50,000 Intl Units Cap) 1 cap PO Q7D [facility] Last Admin: 10/27/18 10:53 Dose: 1 cap Ferrous Sulfate (Feosol) 324 mg PO DAILY [facility] Last Admin: 10/30/18 13:46 Dose: 324 mg Heparin Sodium (Porcine) (Heparin) 5,000 units SC Q12 [facility]; Protocol Last Admin: 10/30/18 22:30 Dose: 5,000 units Meropenem/Sodium Chloride (Merrem Iv 500 Mg/Ns 50 Ml) 500 mg in 50 mls @ 100 mls/hr IVPB Q24H [facility]; Protocol Stop: 11/04/18 14:16 Last Admin: 10/30/18 13:47 Dose: 100 mls/hr Vancomycin HCl (Vancomycin 750 Mg In Ns) 750 mg in 250 mls @ 167 mls/hr IVPB TTS@2200 [facility]; Protocol Last Admin: 10/30/18 22:29 Dose: 167 mls/hr Insulin Human Regular (Humulin R Low) 0 units SC ACHS [facility]; Protocol Last Admin: 10/30/18 22:30 Dose: Not Given Levothyroxine Sodium (Synthroid) 25 mcg PO 0600 [facility] Last Admin: 10/31/18 06:26 Dose: 25 mcg Lisinopril (Zestril) 2.5 mg PO DAILY [facility] Last Admin: 10/30/18 13:44 Dose: 2.5 mg Metoprolol Tartrate (Lopressor) 50 mg PO BRKDIN [facility] Last Admin: 10/30/18 18:24 Dose: Not Given Ondansetron HCl (Zofran Tab) 4 mg PO Q8H PRN PRN Reason: Nausea/Vomiting Oxycodone/Acetaminophen (Percocet 5/325 Mg Tab) 1 tab PO Q4H PRN PRN Reason: Pain, moderate (4-7) Stop: 10/31/18 08:50 Oxycodone/Acetaminophen (Percocet 5/325 Mg Tab) 2 tab PO Q4H PRN PRN Reason: Pain, severe (8-10) Stop: 10/31/18 08:50 Sevelamer HCl (Renagel) 800 mg PO TID [facility] Last Admin: 10/30/18 18:28 Dose: 800 mg Vitamin B Complex/Vit C/Folic Acid (Nephro-Yocasta) 1 tab PO 0800 [facility] Last Admin: 10/30/18 13:47 Dose: 1 tab - Labs Labs: 10/30/18 18:00 10/30/18 09:00 PT 11.2 SECONDS (9.4-12.5) 10/25/18 16:30 INR 0.98 10/25/18 16:30 APTT 30.3 Seconds (25.1-36.5) 10/25/18 16:30 - Constitutional Appears: Non-toxic, No Acute Distress - Head Exam Head Exam: NORMAL INSPECTION, NORMOCEPHALIC - Eye Exam Additional comments: legally blind - ENT Exam ENT Exam: Mucous Membranes Moist - Respiratory Exam Respiratory Exam: Decreased Breath Sounds, NORMAL BREATHING PATTERN - Cardiovascular Exam Cardiovascular Exam: +S1, +S2 - GI/Abdominal Exam GI & Abdominal Exam: Soft, Normal Bowel Sounds - Exam Additional comments: ESRD on hemodialysis 3x a week - Extremities Exam Additional comments: left below knee amputation Left arm AV shunt, positive bruit Right foot dressing - Neurological Exam Neurological Exam: Alert, Awake - Psychiatric Exam Psychiatric exam: Normal Affect, Normal Mood - Skin Skin Exam: Dry, Normal Color, Warm Assessment and Plan - Assessment and Plan (Free Text) Assessment: A 63 year old male who was brought to the ER for [facility] due to right fifth toe gangrene. Poor historian. He does not know why he is in the hospital. chart reviewed. History of ESRD on hemodialysis 3x a week. with Left AV shunt/graft, diabetes, hypothyroidism, peripheral vascular disease, left BKA, legally blind, hypertension, hyperlipidemia, seizures, anemia, gastritis, GI bleeding, post angioplasty of right leg (07/2017),post 3rd toe digit amputation 07/2018, peripheral neuropathy, coronary artery disease. Normal EKG. Denies chest pain, Denies shortness of breath. No signs of ischemia, No signs of heart failure. For possible right 5th toe gangrene surgery.Echo done yesterday, Normal chamber size, LVEF 35-40%,mild aortic regurgitation,trace MR/TR, trivial pericardial effusion. no vegetation or thrombus.Moderate risk for surgery. Cleared from cardiac standpoint. Normal Lipid and TSH levels. Status post right 5th digit phalange and metatarsal amputation POD#2. Cardiac status stable. Blood culture positive for proteus mirabilis and staph aureaus. Toe wound culture pos itive for gram negative rods. ID on consult. Blood culture no growth after 24 hours. Plan: Feels okay, comfortable Cardiac status stable Heart rate controlled Blood pressure controlled Status post right 5th digit phalange and metatarsal amputation POD#3 On hemodialysis 3x a week (TTS) Had hemodialysis yesterday, pulled 1.5 liters fluid. On Norvasc 10 mg daily,Synthroid 25 mcg daily,Lopressor 50 mg BID Continue current treatment Continue current medications Continue IV antibiotics as ordered by ID Followed up by Podiatry Will follow up Plan and treatment discussed with Dr. Ashraf
[2018-10-31 07:42] LABS: HEMOGLOBIN 8.4 g/dL (14.0-18.0); MEAN CELL VOLUME 98.9 fl (80.0-105.0); MEAN CORPUSCULAR HEMOGLOBIN 31.5 pg (25.0-35.0); MEAN CORPUSCULAR HGB CONC 31.8 g/dl (31.0-37.0); MEAN PLATELET VOLUME 9.4 fl (7.0-11.0); RBC 2.67 10^6/uL (3.5-6.1); RED CELL DISTRIBUTION WIDTH 15.1 % (11.5-14.5); WHITE BLOOD COUNT 10.6 10^3/uL (4.5-11.0)
[2018-10-31] MEDS: Insulin Reg-LOW-Coverage SC SCH ×4 (08:21→22:50)
[2018-10-31] MEDS: Multivitamin Vitamin B Complex (Nephro-Vite) Tab PO SCH (10:03)
--- NOTE | 2018-10-31 12:19 | CP.PCM.PN ---
<Carol Carvalho - Last Filed: 10/31/18 23:48> Subjective - Date & Time of Evaluation Date of Evaluation: 10/31/18 Time of Evaluation: 12:19 - Subjective Subjective: Podiatry progress note for Dr. Blakely/Santosh 63M seen and evaluated at bedside POD#3 Right fifth ray partial amputation. Patient asleep on rounds, NAD. No acute events overnight. Patient denies any pain to right foot; offers no new lower extremity complaints. Denies n/v/f/d/c/sob/nunes/cp. Objective - Vital Signs/Intake and Output Vital Signs (last 24 hours): Temp Pulse Resp BP Pulse Ox 97.2 F L 69 18 101/47 L 99 10/31/18 08:38 10/31/18 09:56 10/31/18 08:38 10/31/18 09:56 10/31/18 08:38 - Medications Medications: Current Medications Acetaminophen (Tylenol 325mg Tab) 650 mg PO Q4H PRN PRN Reason: Pain, Mild (1-3) Darbepoetin Rob (Aranesp) 60 mcg IVP QWK [facility] Ergocalciferol (Drisdol 50,000 Intl Units Cap) 1 cap PO Q7D [facility] Last Admin: 10/27/18 10:53 Dose: 1 cap Ferrous Sulfate (Feosol) 324 mg PO DAILY [facility] Last Admin: 10/31/18 10:03 Dose: 324 mg Heparin Sodium (Porcine) (Heparin) 5,000 units SC Q12 [facility]; Protocol Last Admin: 10/31/18 10:04 Dose: 5,000 units Meropenem/Sodium Chloride (Merrem Iv 500 Mg/Ns 50 Ml) 500 mg in 50 mls @ 100 mls/hr IVPB Q24H [facility]; Protocol Stop: 11/04/18 14:16 Last Admin: 10/30/18 13:47 Dose: 100 mls/hr Vancomycin HCl (Vancomycin 750 Mg In Ns) 750 mg in 250 mls @ 167 mls/hr IVPB TTS@2200 [facility]; Protocol Last Admin: 10/30/18 22:29 Dose: 167 mls/hr Insulin Human Regular (Humulin R Low) 0 units SC ACHS [facility]; Protocol Last Admin: 10/31/18 12:18 Dose: Not Given Levothyroxine Sodium (Synthroid) 25 mcg PO 0600 [facility] Last Admin: 10/31/18 06:26 Dose: 25 mcg Lisinopril (Zestril) 2.5 mg PO DAILY [facility] Last Admin: 10/31/18 09:56 Dose: Not Given Metoprolol Tartrate (Lopressor) 50 mg PO BRKDIN [facility] Last Admin: 10/31/18 09:53 Dose: Not Given Ondansetron HCl (Zofran Tab) 4 mg PO Q8H PRN PRN Reason: Nausea/Vomiting Sevelamer HCl (Renagel) 800 mg PO TID [facility] Last Admin: 10/31/18 10:03 Dose: 800 mg Vitamin B Complex/Vit C/Folic Acid (Nephro-Yocasta) 1 tab PO 0800 [facility] Last Admin: 10/31/18 10:03 Dose: 1 tab - Labs Labs: 10/31/18 07:30 10/30/18 09:00 PT 11.2 SECONDS (9.4-12.5) 10/25/18 16:30 INR 0.98 10/25/18 16:30 APTT 30.3 Seconds (25.1-36.5) 10/25/18 16:30 - Constitutional Appears: Non-toxic, No Acute Distress - Extremities Exam Additional comments: RLE focused VASC: DP and PT pulses nonpalpable; no cap refill assessed as 1-4 digit amputa tions, 5th >3 seconds; no edema noted, hair growth absent; temp gradient warm to cold DERM: digits 1-4 amputations; site of fifth ray partial amputation surgery appears well coapted, sutures in place, no drainage or signs of dehiscence, no signs of ischemic event, no pus, no clinical signs of infection ORTHO: no pain on palpation of surgical site; previous amputations of 1-4 digits NEURO: gross and protective sensation absent - Neurological Exam Neurological Exam: Alert, Awake - Psychiatric Exam Psychiatric exam: Normal Affect, Normal Mood Assessment and Plan - Assessment and Plan (Free Text) Assessment: 63M POD#3 right fifth ray partial amputation (DOS 10/28/18) Plan: Patient seen and evaluated Discussed with attending, Dr. Santosh GLORIA, WBC 10.6 Continue local wound care: saline cleanse, betadine, DSD Continue multipodus boots at all times in bed Podiatry will continue to follow <Yany Frost - Last Filed: 11/01/18 07:59> Objective - Vital Signs/Intake and Output Vital Signs (last 24 hours): Temp Pulse Resp BP Pulse Ox 98.3 F 76 18 132/65 97 10/31/18 21:46 10/31/18 21:46 10/31/18 21:46 10/31/18 21:46 10/31/18 21:46 - Medications Medications: Current Medications Acetaminophen (Tylenol 325mg Tab) 650 mg PO Q4H PRN PRN Reason: Pain, Mild (1-3) Darbepoetin Rob (Aranesp) 60 mcg IVP QWK [facility] Ergocalciferol (Drisdol 50,000 Intl Units Cap) 1 cap PO Q7D [facility] Last Admin: 10/27/18 10:53 Dose: 1 cap Ferrous Sulfate (Feosol) 324 mg PO DAILY [facility] Last Admin: 10/31/18 10:03 Dose: 324 mg Heparin Sodium (Porcine) (Heparin) 5,000 units SC Q12 [facility]; Protocol Last Admin: 10/31/18 22:49 Dose: 5,000 units Meropenem/Sodium Chloride (Merrem Iv 500 Mg/Ns 50 Ml) 500 mg in 50 mls @ 100 mls/hr IVPB Q24H [facility]; Protocol Stop: 11/04/18 14:16 Last Admin: 10/31/18 14:12 Dose: 100 mls/hr Vancomycin HCl (Vancomycin 750 Mg In Ns) 750 mg in 250 mls @ 167 mls/hr IVPB TTS@2200 [facility]; Protocol Last Admin: 10/30/18 22:29 Dose: 167 mls/hr Insulin Human Regular (Humulin R Low) 0 units SC ACHS [facility]; Protocol Last Admin: 10/31/18 22:50 Dose: Not Given Levothyroxine Sodium (Synthroid) 25 mcg PO 0600 [facility] Last Admin: 11/01/18 05:46 Dose: 25 mcg Lisinopril (Zestril) 2.5 mg PO DAILY [facility] Last Admin: 10/31/18 09:56 Dose: Not Given Metoprolol Tartrate (Lopressor) 50 mg PO BRKDIN [facility] Last Admin: 10/31/18 17:57 Dose: 50 mg Ondansetron HCl (Zofran Tab) 4 mg PO Q8H PRN PRN Reason: Nausea/Vomiting Sevelamer HCl (Renagel) 800 mg PO TID [facility] Last Admin: 10/31/18 17:57 Dose: 800 mg Vitamin B Complex/Vit C/Folic Acid (Nephro-Yocasta) 1 tab PO 0800 [facility] Last Admin: 10/31/18 10:03 Dose: 1 tab - Labs Labs: 10/31/18 07:30 10/30/18 09:00 PT 11.2 SECONDS (9.4-12.5) 10/25/18 16:30 INR 0.98 10/25/18 16:30 APTT 30.3 Seconds (25.1-36.5) 10/25/18 16:30 Attending/Attestation - Attestation I have personally seen and examined this patient.: Yes I have fully participated in the care of the patient.: Yes I have reviewed all pertinent clinical information, including history, physical exam and plan: Yes
[2018-10-31] MEDS: MEROPENEM 500 MG in NS 500 MG/50 ML BAG IVPB SCH (14:12)
--- NOTE | 2018-10-31 17:45 | PN ---
DATE: 10/31/2018 SUBJECTIVE: The patient is in bed in no acute distress. PHYSICAL EXAMINATION VITAL SIGNS: The patient's temperature is 97, blood pressure is 101/40, respiratory rate of 18, heart rate of 77. HEENT: Unremarkable. NECK: Supple. LUNGS: Have decreased breath sounds. HEART: Normal S1, S2. ABDOMEN: Soft. LABORATORY EXAMINATION: Reveals a white count of 10,000, hemoglobin of 8, BUN of 52, creatinine of 6.8. Repeat blood cultures are negative. MEDICATIONS: Review of orders reveals the patient to be on vancomycin, meropenem. ASSESSMENT AND PLAN This is a 63-year-old, past medical history of end-stage renal disease, on hemodialysis; chronic anemia; hyperparathyroidism; diabetes; hypertension; legally blind; left [id number] amputation; severe peripheral vascular disease and right foot gangrene, status post fifth ray partial amputation, Proteus and Staphylococcus aureus bacteremia, currently on intermittent vancomycin and meropenem. We will review the echocardiogram. Oneil Vincent MD
[2018-11-01] MEDS: Levothyroxine 25 MCG TAB PO SCH (05:46)
[2018-11-01] MEDS: Multivitamin Vitamin B Complex (Nephro-Vite) Tab PO SCH (09:03)
--- NOTE | 2018-11-01 10:11 | CP.PCM.PN ---
<Pk Velásquez - Last Filed: 11/01/18 13:33> Subjective - Date & Time of Evaluation Date of Evaluation: 11/01/18 Time of Evaluation: 07:50 - Subjective Subjective: Infectious disease progress note: Pt seen and examined at bedside. No acute events overnight. No complaints, denies any pain. No fevers. 12 Point ROS neg other than stated above Objective - Vital Signs/Intake and Output Vital Signs (last 24 hours): Temp Pulse Resp BP Pulse Ox 97.4 F L 71 18 158/66 H 100 11/01/18 06:00 11/01/18 09:04 11/01/18 06:00 11/01/18 09:04 11/01/18 06:00 - Medications Medications: Current Medications Acetaminophen (Tylenol 325mg Tab) 650 mg PO Q4H PRN PRN Reason: Pain, Mild (1-3) Darbepoetin Rob (Aranesp) 60 mcg IVP QWK [facility] Ergocalciferol (Drisdol 50,000 Intl Units Cap) 1 cap PO Q7D [facility] Last Admin: 10/27/18 10:53 Dose: 1 cap Ferrous Sulfate (Feosol) 324 mg PO DAILY [facility] Last Admin: 11/01/18 09:03 Dose: 324 mg Heparin Sodium (Porcine) (Heparin) 5,000 units SC Q12 [facility]; Protocol Last Admin: 11/01/18 09:03 Dose: 5,000 units Meropenem/Sodium Chloride (Merrem Iv 500 Mg/Ns 50 Ml) 500 mg in 50 mls @ 100 mls/hr IVPB Q24H [facility]; Protocol Stop: 11/04/18 14:16 Last Admin: 10/31/18 14:12 Dose: 100 mls/hr Vancomycin HCl (Vancomycin 750 Mg In Ns) 750 mg in 250 mls @ 167 mls/hr IVPB TTS@2200 [facility]; Protocol Last Admin: 10/30/18 22:29 Dose: 167 mls/hr Insulin Human Regular (Humulin R Low) 0 units SC ACHS [facility]; Protocol Last Admin: 10/31/18 22:50 Dose: Not Given Levothyroxine Sodium (Synthroid) 25 mcg PO 0600 [facility] Last Admin: 11/01/18 05:46 Dose: 25 mcg Lisinopril (Zestril) 2.5 mg PO DAILY [facility] Last Admin: 11/01/18 09:03 Dose: 2.5 mg Metoprolol Tartrate (Lopressor) 50 mg PO BRKDIN [facility] Last Admin: 11/01/18 09:04 Dose: 50 mg Ondansetron HCl (Zofran Tab) 4 mg PO Q8H PRN PRN Reason: Nausea/Vomiting Sevelamer HCl (Renagel) 800 mg PO TID [facility] Last Admin: 11/01/18 09:03 Dose: 800 mg Vitamin B Complex/Vit C/Folic Acid (Nephro-Yocasta) 1 tab PO 0800 [facility] Last Admin: 11/01/18 09:03 Dose: 1 tab - Labs Labs: 10/31/18 07:30 10/30/18 09:00 PT 11.2 SECONDS (9.4-12.5) 10/25/18 16:30 INR 0.98 10/25/18 16:30 APTT 30.3 Seconds (25.1-36.5) 10/25/18 16:30 - Constitutional Appears: No Acute Distress - Head Exam Head Exam: ATRAUMATIC, NORMOCEPHALIC - Eye Exam Eye Exam: EOMI - ENT Exam ENT Exam: Mucous Membranes Moist - Respiratory Exam Respiratory Exam: Clear to Ausculation Bilateral. absent: Wheezes - Cardiovascular Exam Cardiovascular Exam: REGULAR RHYTHM, +S1, +S2 - GI/Abdominal Exam GI & Abdominal Exam: Soft. absent: Tenderness - Extremities Exam Extremities Exam: absent: Calf Tenderness, Pedal Edema - Neurological Exam Neurological Exam: Alert, Awake, Oriented x3 - Psychiatric Exam Psychiatric exam: Normal Mood - Skin Skin Exam: Dry, Warm Assessment and Plan - Assessment and Plan (Free Text) Assessment: 63M with pmhx of ESRD on hemodialysis (, , thu), chronic anemia,secondary hyperparathyroidism, DM, hypertension, PVD, legally blind, left BKA (2017) [facility] with [facility] foot [facility]rene. S/p 5th ray partial amputation, and with proteus and staph aureus bacteremia. - Cont with abx with Vanc with dialysis TTS, and Santi - Blood cx shows proteus and staph aureus - F/u OR path - F/u podiatry, vascular, and nephro consult and recs - Cont to monitor Case and plan was reviewed and discussed with Jose Garvey - Last Filed: 11/01/18 15:55> Objective - Vital Signs/Intake and Output Vital Signs (last 24 hours): Temp Pulse Resp BP Pulse Ox 97.6 F 68 20 147/76 98 11/01/18 14:00 11/01/18 14:00 11/01/18 14:00 11/01/18 14:00 11/01/18 14:00 - Medications Medications: Current Medications Acetaminophen (Tylenol 325mg Tab) 650 mg PO Q4H PRN PRN Reason: Pain, Mild (1-3) Darbepoetin Rob (Aranesp) 100 mcg IVP QWK [facility] Ergocalciferol (Drisdol 50,000 Intl Units Cap) 1 cap PO Q7D [facility] Last Admin: 10/27/18 10:53 Dose: 1 cap Ferrous Sulfate (Feosol) 324 mg PO DAILY [facility] Last Admin: 11/01/18 09:03 Dose: 324 mg Heparin Sodium (Porcine) (Heparin) 5,000 units SC Q12 [facility]; Protocol Last Admin: 11/01/18 09:03 Dose: 5,000 units Meropenem/Sodium Chloride (Merrem Iv 500 Mg/Ns 50 Ml) 500 mg in 50 mls @ 100 mls/hr IVPB Q24H [facility]; Protocol Stop: 11/04/18 14:16 Last Admin: 11/01/18 13:49 Dose: 100 mls/hr Vancomycin HCl (Vancomycin 750 Mg In Ns) 750 mg in 250 mls @ 167 mls/hr IVPB TTS@2200 [facility]; Protocol Last Admin: 10/30/18 22:29 Dose: 167 mls/hr Insulin Human Regular (Humulin R Low) 0 units SC ACHS [facility]; Protocol Last Admin: 11/01/18 13:46 Dose: Not Given Levothyroxine Sodium (Synthroid) 25 mcg PO 0600 [facility] Last Admin: 11/01/18 05:46 Dose: 25 mcg Lisinopril (Zestril) 2.5 mg PO DAILY [facility] Last Admin: 11/01/18 09:03 Dose: 2.5 mg Metoprolol Tartrate (Lopressor) 50 mg PO BRKDIN [facility] Last Admin: 11/01/18 09:04 Dose: 50 mg Ondansetron HCl (Zofran Tab) 4 mg PO Q8H PRN PRN Reason: Nausea/Vomiting Sevelamer HCl (Renagel) 800 mg PO TID [facility] Last Admin: 11/01/18 13:49 Dose: 800 mg Vitamin B Complex/Vit C/Folic Acid (Nephro-Yocasta) 1 tab PO 0800 [facility] Last Admin: 11/01/18 09:03 Dose: 1 tab - Labs Labs: 10/31/18 07:30 10/30/18 09:00 PT 11.2 SECONDS (9.4-12.5) 10/25/18 16:30 INR 0.98 10/25/18 16:30 APTT 30.3 Seconds (25.1-36.5) 10/25/18 16:30 Assessment and Plan - Assessment and Plan (Free Text) Assessment: Infectious diseases Attending Physician Attestation Patient seen and examined, discussed with medical record retrieval specialist. I have reviewed the patient's history of present illness, past medical, social, personal and family histories, pertinent physical exam findings, course so far in this hospital admission, pertinent laboratory and imaging results. I agree with the above findings, assessment and plan. In addition, continue intermittent Vancomycin and Merrem for Proteus and MSSA bacteremia with right 5th ray gangrene S/P amputation with margins still showing osteomyelitis. Will need at least 4 weeks of antibiotics, with weekly blood work to be monitored by PMD. Will also follow up with Podiatry as an outpatient.
--- NOTE | 2018-11-01 10:12 | CP.PCM.PN ---
Subjective - Date & Time of Evaluation Date of Evaluation: 11/01/18 Time of Evaluation: 10:10 - Subjective Subjective: Podiatry progress note for Dr. Blakely/Santosh 63M seen and evaluated at bedside POD#4 right fifth ray partial amputation. Patient in no acute distress and has no complainst to right foot. No acute events overnight. Offers no new lower extremity complaints. Denies n/v/f/d/c/sob/nunes/cp. Objective - Vital Signs/Intake and Output Vital Signs (last 24 hours): Temp Pulse Resp BP Pulse Ox 97.4 F L 71 18 158/66 H 100 11/01/18 06:00 11/01/18 09:04 11/01/18 06:00 11/01/18 09:04 11/01/18 06:00 - Medications Medications: Current Medications Acetaminophen (Tylenol 325mg Tab) 650 mg PO Q4H PRN PRN Reason: Pain, Mild (1-3) Darbepoetin Rob (Aranesp) 60 mcg IVP QWK [facility] Ergocalciferol (Drisdol 50,000 Intl Units Cap) 1 cap PO Q7D [facility] Last Admin: 10/27/18 10:53 Dose: 1 cap Ferrous Sulfate (Feosol) 324 mg PO DAILY [facility] Last Admin: 11/01/18 09:03 Dose: 324 mg Heparin Sodium (Porcine) (Heparin) 5,000 units SC Q12 [facility]; Protocol Last Admin: 11/01/18 09:03 Dose: 5,000 units Meropenem/Sodium Chloride (Merrem Iv 500 Mg/Ns 50 Ml) 500 mg in 50 mls @ 100 mls/hr IVPB Q24H [facility]; Protocol Stop: 11/04/18 14:16 Last Admin: 10/31/18 14:12 Dose: 100 mls/hr Vancomycin HCl (Vancomycin 750 Mg In Ns) 750 mg in 250 mls @ 167 mls/hr IVPB TTS@2200 [facility]; Protocol Last Admin: 10/30/18 22:29 Dose: 167 mls/hr Insulin Human Regular (Humulin R Low) 0 units SC ACHS [facility]; Protocol Last Admin: 10/31/18 22:50 Dose: Not Given Levothyroxine Sodium (Synthroid) 25 mcg PO 0600 [facility] Last Admin: 11/01/18 05:46 Dose: 25 mcg Lisinopril (Zestril) 2.5 mg PO DAILY [facility] Last Admin: 11/01/18 09:03 Dose: 2.5 mg Metoprolol Tartrate (Lopressor) 50 mg PO BRKDIN [facility] Last Admin: 11/01/18 09:04 Dose: 50 mg Ondansetron HCl (Zofran Tab) 4 mg PO Q8H PRN PRN Reason: Nausea/Vomiting Sevelamer HCl (Renagel) 800 mg PO TID [facility] Last Admin: 11/01/18 09:03 Dose: 800 mg Vitamin B Complex/Vit C/Folic Acid (Nephro-Yocasta) 1 tab PO 0800 [facility] Last Admin: 11/01/18 09:03 Dose: 1 tab - Labs Labs: 10/31/18 07:30 10/30/18 09:00 PT 11.2 SECONDS (9.4-12.5) 10/25/18 16:30 INR 0.98 10/25/18 16:30 APTT 30.3 Seconds (25.1-36.5) 10/25/18 16:30 - Constitutional Appears: Well, Non-toxic, No Acute Distress - Head Exam Head Exam: NORMOCEPHALIC - Extremities Exam Additional comments: RLE focused VASC: DP and PT pulses nonpalpable; no cap refill assessed as 1-4 digit amputations, 5th >3 seconds; no edema noted, hair growth absent; temp gradient warm to cold DERM: digits 1-4 amputations; site of fifth ray partial amputation surgery appears well coapted, sutures in place, no drainage or signs of dehiscence, no signs of ischemic event, no pus, no clinical signs of infection ORTHO: no pain on palpation of surgical site; previous amputations of 1-4 digits NEURO: gross and protective sensation absent - Neurological Exam Neurological Exam: Alert, Awake - Psychiatric Exam Psychiatric exam: Normal Affect, Normal Mood Assessment and Plan - Assessment and Plan (Free Text) Assessment: 63M POD#4 right fifth ray partial amputation (DOS 10/28/18) Plan: Patient seen and evaluated with Dr. Santosh GLORIA, WBC 10.6 (10/31) Continue local wound care: saline cleanse, betadine, DSD Continue multipodus boots at all times in bed Surgical pathology still pending - determine abx course for d/c Podiatry will continue to follow
--- NOTE | 2018-11-01 13:15 | CP.PCM.PCO ---
Physician Communication Note - Physician Communication Note Physician Communication Note: Per ID, needs total of 4 weeks of IV Merrem
[2018-11-01] MEDS: Insulin Reg-LOW-Coverage SC SCH ×2 (13:46→20:41)
[2018-11-01] MEDS: MEROPENEM 500 MG in NS 500 MG/50 ML BAG IVPB SCH (13:49)
[2018-11-01 14:38] VITALS: BP 147/76; PULSE 68; RESP 20; TEMP 97.6; O2SAT 98
--- NOTE | 2018-11-01 14:49 | CP.PCM.PN ---
Subjective - Date & Time of Evaluation Date of Evaluation: 11/01/18 Time of Evaluation: 14:49 - Subjective Subjective: Nephrology Consultation Note: Assessment: Stable Rt foot 5th toe gangrene s/p amputation 10/28/18 GNR sepsis Diabetic chronic Kidney Disease (E11.22) Hypertensive Chronic Kidney Disease (I12.0) End stage renal disease (N18.6) dependence on hemodialysis (Z99.2) (TTS) via AVF Anemia (D64.9), Hyperphosphatemia (E83.39), Secondary Hyperparathyroidism (E21.1), HTN (I12.0) PVD sys CHF LVEF 35-40% Plan: Will plan for HD TTS schedule as ordered. Continue with Nephrovite 1 tab/day. PRBC as needed for anemia. on HILTON weekly with dialysis as last Hb 8.4 Continue with phos binders but hold 1-2 day and resume @ lower dose last phos level 2.4 BP control with meds as ordered. Patient now on RAAS levi, low dose lisinopril Glycemic control, Dialysis consistent diet Further work up/management as per primary team Dose meds/antibiotics (if needed) for ESRD status. Avoid fleets enema/magnesium based laxatives. podiatry cardio follow up appreciated Thanks for allowing me to participate in care of your patient. Will follow patient with you. Please call if any Qs Dr Alfred Resendez Office: [phone] Chief Complaint; toe gangrene HPI: Pt is a 63 M with hx of ESRD on hemodialysis (TTS) via AVF , last dialysis sat, chronic anemia, hyperphosphatemia, secondary hyperparathyroidism, Diabetes Mellitus, hypertension PVD, legally blind, left BKA presented with complaints of foot 5th toe gangrene. Renal consult requested for ESRD management. otherwise he feels usual health ROS: Cardiovascular: No chest pain. Pulmonary: No shortness of breath Gastrointestinal: denies abdominal pain No nausea. No vomiting. Genitourinary: No pain while urinating. Denies blood in urine. All other negative except as mentioned in HPI Physical Examination: General Appearance: Comfortable, in no acute respiratory distress, co-operative . Vitals reviewed and noted as below Head; Atraumatic, normocephalic ENT: no ulcers no thrush. Tongue is midline. Oropharynx: no rash or ulcers. EYES: Pupils are equal, round and reactive to light accommodation. Eye muscles and extraocular movement intact. Sclera is anicteric. Neck; supple no lymphadenopathy, no thyromegaly or bruit Lungs: Normal respiratory rate/effort. Breath sounds bilateral equal and clear Heart: Normal rate. s1s2 normal. No rub or gallop. Extremities: no edema. No varicose veins. left BKA. Rt foot dressed Neurological: Patient is alert, awake and oriented to person, place and time. No focal deficit. Strength bilateral appropriate and equal Skin: Warm and dry. Normal turgor. No rash. Palpitation: Normal elasticity for age Abdomen: Abdomen is soft. Bowel sounds +. There is no abdominal tenderness, no guarding/rigidity or organomegaly Psych: normal insight and normal affect/mood MSK: no joint tenderness or swelling. : kidney or bladder not palpable Access: AVF Labs/imaging reviewed. Past medical history, past surgical history, family history, social history, allergy reviewed and noted as below Family Hx: no hx of CKD. Non contributory Objective - Vital Signs/Intake and Output Vital Signs (last 24 hours): Temp Pulse Resp BP Pulse Ox 97.6 F 68 20 147/76 98 11/01/18 14:00 11/01/18 14:00 11/01/18 14:00 11/01/18 14:00 11/01/18 14:00 - Medications Medications: Current Medications Acetaminophen (Tylenol 325mg Tab) 650 mg PO Q4H PRN PRN Reason: Pain, Mild (1-3) Darbepoetin Rob (Aranesp) 100 mcg IVP QWK [facility] Ergocalciferol (Drisdol 50,000 Intl Units Cap) 1 cap PO Q7D [facility] Last Admin: 10/27/18 10:53 Dose: 1 cap Ferrous Sulfate (Feosol) 324 mg PO DAILY [facility] Last Admin: 11/01/18 09:03 Dose: 324 mg Heparin Sodium (Porcine) (Heparin) 5,000 units SC Q12 [facility]; Protocol Last Admin: 11/01/18 09:03 Dose: 5,000 units Meropenem/Sodium Chloride (Merrem Iv 500 Mg/Ns 50 Ml) 500 mg in 50 mls @ 100 mls/hr IVPB Q24H [facility]; Protocol Stop: 11/04/18 14:16 Last Admin: 11/01/18 13:49 Dose: 100 mls/hr Vancomycin HCl (Vancomycin 750 Mg In Ns) 750 mg in 250 mls @ 167 mls/hr IVPB TTS@2200 [facility]; Protocol Last Admin: 10/30/18 22:29 Dose: 167 mls/hr Insulin Human Regular (Humulin R Low) 0 units SC ACHS [facility]; Protocol Last Admin: 11/01/18 13:46 Dose: Not Given Levothyroxine Sodium (Synthroid) 25 mcg PO 0600 [facility] Last Admin: 11/01/18 05:46 Dose: 25 mcg Lisinopril (Zestril) 2.5 mg PO DAILY [facility] Last Admin: 11/01/18 09:03 Dose: 2.5 mg Metoprolol Tartrate (Lopressor) 50 mg PO BRKDIN [facility] Last Admin: 11/01/18 09:04 Dose: 50 mg Ondansetron HCl (Zofran Tab) 4 mg PO Q8H PRN PRN Reason: Nausea/Vomiting Sevelamer HCl (Renagel) 800 mg PO TID [facility] Last Admin: 11/01/18 13:49 Dose: 800 mg Vitamin B Complex/Vit C/Folic Acid (Nephro-Yocasta) 1 tab PO 0800 [facility] Last Admin: 11/01/18 09:03 Dose: 1 tab - Labs Labs: 10/31/18 07:30 10/30/18 09:00 PT 11.2 SECONDS (9.4-12.5) 10/25/18 16:30 INR 0.98 10/25/18 16:30 APTT 30.3 Seconds (25.1-36.5) 10/25/18 16:30
--- NOTE | 2018-11-01 18:36 | PN ---
DATE: 11/01/2018REASON FOR CONSULTATION: Preop evaluation, risk stratification, history of end-stage renal disease, history of PAD status post BKA, status post right metatarsal amputation, and history of amputation of right toe. SUBJECTIVE: The patient denies any chest pain, shortness of breath or any palpitation. OBJECTIVE: GENERAL: Not in apparent distress.. VITAL SIGNS: Afebrile, heart rate 71, and blood pressure 132/88. HEENT: PERRLA. Extraocular muscles intact. NECK: Supple. No carotid bruit or thyromegaly. CHEST: Clear to auscultation. HEART: S1 and S2 regular. ABDOMEN: Soft. EXTREMITIES: Left BKA, right tarso-metatarsal amputation. No clubbing, no cyanosis noted. LABORATORY DATA: Blood work up; WBC 10.6, hemoglobin 8.5, hematocrit 26.4, and platelet count 207. Chemistry shows sodium 134, potassium 4.5, chloride 100, carbon dioxide 26, anion gap of 14, BUN 52, and creatinine 6.8. IMPRESSION: A 63-year-old male with past medical history significant for severe peripheral artery disease status post left below knee amputation, status post right toe amputation, status post foot amputation before at this time the patient had right fifth digit amputated, end-stage renal disease on dialysis, hypothyroidism, peripheral vascular disease, history of peripheral angioplasty by Dr. Sergey Jacobs in 07/2017. Last echo showed normal chamber size ejection fraction of 35% to 40%, mild aortic regurgitation, mild tricuspid regurgitation. RECOMMENDATIONS: Continue antihypertensive medication. Continue dialysis Thursday, , and Thursday. Continue Norvasc 10 mg, Synthroid 25 mg daily. Continue Lopressor 50 twice a day, for discharge planning. Most of the patient's blood pressure is stable. We will monitor accordingly. Jeff Ashraf MD
--- NOTE | 2018-11-03 07:31 | OP ---
PROCEDURE DATE: 10/28/2018 SURGEON: Loco Blakely DPM ROLLING MACHINE OPERATOR: Arturo Botello DPM ANESTHESIOLOGIST: Evert Milligan MD ANESTHESIA: IV sedation with local. PREOPERATIVE DIAGNOSES: Right foot fifth digit gangrene and osteomyelitis. POSTOPERATIVE DIAGNOSES: Right foot fifth digit gangrene and osteomyelitis. PROCEDURE: Right foot fifth ray partial amputation. INDICATION: The patient is a 63-year-old male with the above diagnosis. The patient has exhausted all conservative treatment at this time and now requires surgical intervention. The patient signed a consent after careful explanation of risks, benefits, complications, and alternatives for surgical procedure. No guarantees were given nor implied. PREPARATION: The patient was brought into the operating room and placed on the operating room table in a supine position. A time-out was performed for identification of the correct patient and procedure. After induction of IV sedation and local anesthesia, the patient received a total of 18 mL of a 1:1 mixture of 1% lidocaine plain and 0.5% Marcaine plain in a local block fashion to the fifth ray. Once the local anesthesia was achieved, the right foot was then prepped and draped in a normal sterile manner and the procedure began. DESCRIPTION OF PROCEDURE: Attention was then directed to the right fifth metatarsal, where a racquet-type incision was made circumferentially at the level of the fifth metatarsal phalangeal joint using a #15 blade. The incision was then extended down to the subcutaneous layers down to the level of the bone using a bone clamp to stabilize the toe. The fifth digit was then disarticulated from the level of the fifth metatarsal phalangeal joint. The specimen was then passed from the operative field and sent to pathology. Using a fresh #15 blade, all necrotic and nonviable tissue were then excisionally debrided from the surgical site. Next, utilizing a #15 blade, all periosteal tissues were carefully dissected off the metatarsal. Using a sagittal saw, fifth metatarsal head and neck was then restricted and passed from the operative field. All rough edges were then smoothened using a rasp and sagittal saw. The incision site was then irrigated with copious amount of normal saline. The subcutaneous tissue was reapproximated with 3-0 Vicryl, and skin layers were then reapproximated using 3-0 nylon using a combination of simple and horizontal mattress suture technique. The right foot was then dressed with Betadine soaked Adaptic, 4 x 4, gauze, and Kerlix. POSTOPERATIVE CONDITION: The patient tolerated the anesthesia and procedure well and was escorted to the floor with vital signs stable and neurovascular status intact to the right foot. The patient is to be nonweightbearing to the right lower extremity and Podiatry will continue to follow in-house, and the patient will follow up with Dr. Blakely upon discharge. Arturo Botello DPM Reddy Prado MTDD
[2018-11-04] MEDS ORDERED: Darbepoetin Alfa 100 mcg/ml Inj IVP SCH (10:00)
== END 2018-11-01 20:02 | DRG 255 ==
LOC: ED 14:10 → ERH 18:57 → 5RNO 21:10
PROVIDERS: ADMIT Internal Medicine; ATTEND Internal Medicine
PROC: 5A1D70Z Performance of Urinary Filtration, Intermittent, Less than 6 Hours Per Day (ICD-10-PCS; 2018-10-26)
PROC: 5A1D70Z Performance of Urinary Filtration, Intermittent, Less than 6 Hours Per Day (ICD-10-PCS; 2018-10-28)
PROC: 0Y6X0Z3 Detachment at Right 5th Toe, Low, Open Approach (ICD-10-PCS; principal; 2018-10-28 07:30)
PROC: 5A1D70Z Performance of Urinary Filtration, Intermittent, Less than 6 Hours Per Day (ICD-10-PCS; 2018-10-30)
PROC: 05H533Z Insertion of Infusion Device into Right Subclavian Vein, Percutaneous Approach (ICD-10-PCS; 2018-11-01)
DX: E11.52 Type 2 diabetes mellitus with diabetic peripheral angiopathy with gangrene (principal); N18.6 End stage renal disease; N25.81 Secondary hyperparathyroidism of renal origin; I13.2 Hypertensive heart and chronic kidney disease with heart failure and with stage 5 chronic kidney disease, or end stage renal disease; R78.81 Bacteremia; I50.22 Chronic systolic (congestive) heart failure; M86.171 Other acute osteomyelitis, right ankle and foot; E11.42 Type 2 diabetes mellitus with diabetic polyneuropathy; I25.10 Atherosclerotic heart disease of native coronary artery without angina pectoris; Z99.2 Dependence on renal dialysis; E11.22 Type 2 diabetes mellitus with diabetic chronic kidney disease; E03.9 Hypothyroidism, unspecified; Z87.891 Personal history of nicotine dependence; R56.9 Unspecified convulsions; Z89.512 Acquired absence of left leg below knee; H54.8 Legal blindness, as defined in USA; D63.8 Anemia in other chronic diseases classified elsewhere; F03.90 Unspecified dementia, unspecified severity, without behavioral disturbance, psychotic disturbance, mood disturbance, and anxiety; E11.21 Type 2 diabetes mellitus with diabetic nephropathy; B95.61 Methicillin susceptible Staphylococcus aureus infection as the cause of diseases classified elsewhere; B96.4 Proteus (mirabilis) (morganii) as the cause of diseases classified elsewhere; D64.9 Anemia, unspecified; E78.00 Pure hypercholesterolemia, unspecified; E78.5 Hyperlipidemia, unspecified; E83.39 Other disorders of phosphorus metabolism; G40.909 Epilepsy, unspecified, not intractable, without status epilepticus; I70.0 Atherosclerosis of aorta; E11.69 Type 2 diabetes mellitus with other specified complication; Z79.4 Long term (current) use of insulin